=== PATIENT | male | born 1985 | race Caucasian/White ===

== ENCOUNTER 2021-04-16 11:44 | Outpatient (REF) | payer OTHER, SELFPAY ==
[2021-04-16 14:39] LABS: Alanine Aminotransferase 71 U/L (0-40); Albumin Level 4.5 g/dL (3.5-5.0); Alkaline Phosphatase 116 U/L (39-117); Anion Gap 16 (12-20); Aspartate Amino Transferase 33 U/L (5-37); Bilirubin Total 0.5 mg/dL (0.0-1.0); Blood Urea Nitrogen 10 mg/dL (9-16); Calcium 9.9 mg/dL (8.4-10.2); Carbon Dioxide 27 mmol/L (22-29); Chloride 100 mmol/L (96-108); Cholesterol 266 mg/dL; Estimated Glomerular Filt Rate > 60; Glucose Fasting 106 mg/dL (60-99); HDL Cholesterol 38 mg/dL; Potassium 3.9 mmol/L (3.3-5.1); Sodium 139 mmol/L (135-145); Total Protein 7.3 g/dL (6.5-8.0); Triglycerides 453 mg/dL
[2021-04-16 15:03] LABS: TSH reflex Free T4 1.26 uIU/mL (0.32-4.0)
== END 2021-04-16 11:45 | disposition home or self-care (01) ==
LOC: HO.HMGCLDS 11:44
PROVIDERS: PCP Nurse Practitioner Family; Visit Provider Nurse Practitioner Family
DX: I10 Essential (primary) hypertension (principal)
CPT/HCPCS: 36415; 80053; 80061; 84443

== ENCOUNTER 2021-05-14 09:11 | Outpatient (REF) | payer OTHER, SELFPAY ==
--- NOTE | ~2021-05-14 | US_ITS ---
EXAMINATION: US ABDOMEN COMPLETE CLINICAL INFORMATION: Abnormal levels of other serum enzymes. COMPARISON: None TECHNIQUE: Real-time imaging of the abdominal viscera. FINDINGS: PANCREAS: Not well visualized due to bowel gas ABDOMINAL AORTA: The proximal, mid, and distal segments are normal in caliber. INFERIOR VENA CAVA: Visualized portions are normal. LIVER: Liver echotexture is increased probably representing fatty infiltration. The liver is slightly enlarged, right lobe measuring 19 cm in length The liver contour is normal. There is a hypoechoic area adjacent to the gallbladder, characteristic location of focal fatty sparing. No other focal hepatic lesion. There is no intrahepatic biliary duct dilatation seen. GALLBLADDER: There is a small 2 mm echogenic density adjacent to the gallbladder wall probably representing a gallbladder wall polyp. No definite gallstone is seen. The gallbladder wall is normal in thickness. There is no pericholecystic fluid. COMMON BILE DUCT: Normal in caliber measuring 0.4 cm in diameter. RIGHT KIDNEY: Normal. No hydronephrosis. No renal calculi or focal parenchymal lesions. The kidney measures 11.7 cm in maximum dimension. LEFT KIDNEY: Normal. No hydronephrosis. No renal calculi or focal parenchymal lesions. The kidney measures 12.7 cm in maximum dimension. SPLEEN: Normal. The spleen measures 12.2 cm in maximum dimension. FREE FLUID: None. US/US abdomen complete IMPRESSION: Enlarged echogenic liver probably representing fatty infiltration. Small gallbladder wall polyp. No definite gallstone seen. Limited visualization of the pancreas.
== END 2021-05-14 09:12 | disposition home or self-care (01) ==
LOC: HO.HMGCX 09:11
PROVIDERS: PCP Nurse Practitioner Family; Visit Provider Nurse Practitioner Family
DX: R74.8 Abnormal levels of other serum enzymes (principal)
CPT/HCPCS: 76700

== ENCOUNTER 2021-11-24 15:51 | Emergency (ER) | payer OTHER, SELFPAY ==
[2021-11-24 16:13] VITALS: BP 187/117; PULSE 74; RESP 18; TEMP 36.8; O2SAT 97; BMI 26.4
--- NOTE | 2021-11-24 16:36 | ED_ITS ---
HPI - Anxiety General Chief Complaint: Anxiety Stated Complaint: anxiety Time Seen by Provider: 11/24/21 16:32 Source: patient Mode of arrival: ambulatory Limitations: no limitations History of Present Illness HPI narrative: Patient is a 36 year old male presenting to the emergency department today with anxiety. Patient states that he has a history of anxiety, and he is prescribed clonidine. Patient states that he got a refill at the end of September for 3 months but he has taken much more than he is supposed to over the last month. Patient states that he would like to be started on something else but he doesn't know how to do that. Patient denies any dizziness, lightheadedness, abdominal pain, nausea, vomiting, fever, chills, blurry vision, double vision, loss of vision, chest pain, difficulty breathing, shortness of breath, back pain, night sweats, pain with urination, increased urinary frequency, increased urinary urgency, blood in his urine or stool, syncope or a near syncopal episode, recent trauma or falls, bowel incontinence, bladder incontinence, bowel retention, bladder retention, or any other complaints at this time. Patient denies any suicidal ideation. MD complaint: anxiety Onset (ago): hour(s) Severity: moderate Quality: constant Place: home History of similar episodes: Yes Provoking factors: none known Relieving factors: nothing Exacerbating factors: nothing Associated symptoms: denies other symptoms Related Data Previous Rx's Medication Instructions Recorded gabapentin 300 mg capsule 300 mg PO TID #90 cap 08/25/21 clonidine HCl 0.3 mg tablet 0.6 mg PO TID #540 tab 10/27/21 lisinopril 20 mg tablet 20 mg PO DAILY 90 Days #90 tab 10/27/21 verapamil 120 mg 24 hr 120 mg PO DAILY 90 Days #90 cap 10/27/21 capsule,extended release Allergies Allergy/AdvReac Type Severity Reaction Status Date / Time Tree nuts Allergy Unknown Unknown Verified 09/11/21 16:53 Review of Systems Constitutional: Constitutional: Reports no additional constitutional complaints, Denies chills, Denies fever(s) and Denies night sweats Eyes: Eyes: Reports no additional eye complaints, Denies blurry vision, Denies change in vision, Denies diplopia, Denies eye discharge, Denies loss of vision and Denies eye pain ENT: Denies dizziness Cardiovascular: Cardiovascular: Reports no additional cardiovascular complaints, Denies chest pain, Denies lightheadedness, Denies Loss of Consciousness and Denies dyspnea Respiratory: Respiratory: Reports no additional respiratory complaints and Denies dyspnea Gastrointestinal: Gastrointestinal: Reports no additional gastrointestinal complaints, Denies abdominal pain, Denies melena, Denies hematochezia, Denies change in bowel habits and Denies change in stool character Genitourinary: Genitourinary: Reports no additional male genitourinary complaints, Denies hematuria, Denies oliguria, Denies difficulty urinating, Denies dysuria, Denies urinary frequency, Denies urinary hesitancy, Denies urinary incontinence and Denies urinary urgency Musculoskeletal: Musculoskeletal: Reports no additional musculoskeletal complaints, Denies numbness and Denies tingling Neurologic: Denies dizziness, Denies loss of vision, Denies numbness and Denies tingling Psychiatric: Psychiatric: Reports no additional psychiatric complaints and Reports anxiety Endocrine: Endocrine: Reports no additional endocrine complaints Hematologic/Lymphatic: Hematologic/Lymphatic: Reports no additional hematologic/lymphatic complaints Allergic/Immunologic: Allergic/Immunologic: Reports no additional allergic/immunologic complaints PMFSH Past Medical History Attestation statement: The following information was validated with the patient. Source: old records reviewed Medical History Anxiety Fear of flying Food poisoning Gastritis HTN (hypertension) Palpitation Surgical History Pyogenic granuloma Family History Family History Father Afib CHF (congestive heart failure) CVD (cardiovascular disease) Mother Stroke Mental health disorder Brother Asthma Maternal Grandfather Mental health disorder Maternal Uncle Mental health disorder Social History Social History Housing: House Patient Tobacco Use Status: Never used Tobacco e-Cigarette/Vaping Use: Currently Using (sometimes ) Second Hand Smoke Exposure: No Advance Directives: No Advance Directives Information Provided: No service: Yes Current occupational status: employed 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 [employer] Physical Exam Vital Signs: Vital Signs: Last Vital Signs Temp 98.2 F 11/24/21 16:13 Pulse 74 11/24/21 16:13 Resp 18 03/28/22 16:13 BP 187/117 H 03/28/22 16:13 Pulse Ox 97 11/24/21 16:13 BMI result Body Mass Index 26.4 Const: General: cooperative, no acute distress, alert and awake Nutritional Appearance: well nourished Orientation/consciousness: patient oriented x3 Limitations: no limitations HEENT: Head: Yes normal to inspection and Yes atraumatic Ears: hearing grossly normal bilaterally and external ears normal General nose exam: Normal external nose present, no nasal discharge noted and no epistaxis Face and sinus: Yes normal facial exam, No abrasion and No laceration Mouth: Normal oral and palatal mucosa present, no drooling and no muffled voice Eyes: General: appearance normal, both eyes and all related structures Periorbital: periorbital findings normal Eyelids: Yes eyelids normal Conjunctivae: conjunctivae normal Pupils: Equal, round and reactive pupils present EOM: EOMs intact bilaterally Neck: Neck: Yes normal visual inspection, Yes full ROM and Yes no lymphadenopathy Chest: Chest palpation & inspection: normal inspection of the chest Resp: Effort & Inspection: normal respiratory effort and able to speak in complete sentences Auscultation: clear to auscultation bilaterally Cardio: Rate: regular rate Rhythm: regular rhythm GI: Inspection: Yes normal to inspection Neuro: General: patient oriented x3 and moves all extremities Cranial nerves: Yes Equal, round and reactive pupils present Cognition (Neuro): normal cognition Motor exam (neuro): 5/5 motor strength present throughout Sensory Exam: Normal double simultaneous stimulation for sensation Coordination: [id number] test normal Extrem: General: Yes normal to inspection, Yes full ROM and Yes capillary refill normal Psych: Appearance: grossly normal Mental Status: mental status grossly normal Speech and movement: Pressured speech present Affect: Anxious affect present Attitude: cooperative Thought process: Flight of ideas present Thought content: Normal thought content present Insight: Good insight present (Psych) MDM - Anxiety MDM Narrative Medical decision making narrative: Patient is a 36 year old male presenting to the emergency department today with anxiety and clonidine abuse. Patient's physical exam showed an anxious individual but was otherwise unremarkable. Patient's blood work is pending. Patient's urine is pending. Patient is awaiting CARE team consult on plan for safe discharge. Patient was given 2 mg of PO Ativan which he stated helped his a nxiety significantly. Differential Diagnosis Differential diagnosis: Likely acute anxiety Medical Records Attestation: I reviewed the patient's medical records. Lab Data Attestation: I reviewed the patient's lab results. Labs: Lab Results 11/24/21 Range/Units 17:55 COVID-19 (REMA) Negative (Negative) COVID-19 Clin Com See Note Discharge Plan Discharge Clinical Impression: Anxiety Patient Disposition: Still a Patient Instructions: Anxiety (ED) Prescriptions: No Action gabapentin 300 mg capsule 300 mg PO TID Qty: 90 3RF clonidine HCl 0.3 mg tablet 0.6 mg PO TID Qty: 540 0RF lisinopril 20 mg tablet 20 mg PO DAILY 90 Days Qty: 90 0RF verapamil 120 mg capsule,ext rel. pellets 24 hr 120 mg PO DAILY 90 Days Qty: 90 0RF Print Language: Frisian
[2021-11-24] MEDS: LORazepam 1 MG TABLET 2 MG PO (17:09)
[2021-11-24 18:20] LABS: COVID-19 Test Negative (Negative); IDNOW Serial# 16C4AD1C
[2021-11-24 19:12] VITALS: BP 203/122; PULSE 77; RESP 20; O2SAT 97
[2021-11-24 19:13] VITALS: BP 176/121; PULSE 81; RESP 21
[2021-11-24 19:28] LABS: MANUAL DIFF FLAG NO
[2021-11-24 19:29] LABS: Basophils Percent Auto 0.5 % (0-2); Eosinophils Absolute Auto 0.2 X10*3/uL (0.0-0.4); Eosinophils Percent Auto 2.1 % (0-4); Hematocrit 38.2 % (42.0-52.0); Hemoglobin 12.6 g/dl (14.0-18.0); Imm Gran Abs Auto 0.03 X10*3/uL (0.00-0.03); Imm Gran Pct Auto 0.4 % (0.0-0.4); Lymphocytes Absolute Auto 1.7 X10*3/uL (1.2-4.9); Lymphocytes Percent Auto 21.7 % (20-40); Mean Corpuscular Hemoglobin 27.7 pg (27.0-33.0); Mean Platelet Volume 10.9 fL (9.4-12.4); Monocytes Absolute Auto 0.4 X10*3/uL (0.1-1.2); Monocytes Percent Auto 4.5 % (2-11); Neutrophils Absolute Auto 5.5 x10*3/uL (2.0-8.3); Neutrophils Percent Auto 70.8 % (45-73); Platelet Count 389 X10*3/uL (160-400); Red Blood Count 4.55 X10*6/uL (4.60-5.80); Red Cell Distribution Width 12.4 % (11.0-16.0); White Blood Count 7.8 X10*3/uL (4.8-10.8)
--- NOTE | 2021-11-24 19:33 | MHC.CARE ---
CARE team consult received from ED provider. Pt is a 36 year old single, white, Haitian speaking, cisgender male who self presented to the ED for increased anxiety and panic s/p to running out of his prescription clonidine. The pt had reported that he's been prescribed clonidine for anxiety since 2013 by his PCP, and the strength of his doses has gradually increased, currently prescribed 0.6mg TID. 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 [place] noting is that the pt does have a medical diagnosis of hypertension and is also prescribed lisinopril and verapamil. The pt is visibly anxious and distressed, wrapping his arms across his chest and holding his shoulders, rocking back and forth, on the verge of tears, and rapidly speaking about his fear that he's going to if he goes home because his blood pressure will go up to a million billion over a million. He denied SI/HI/AVH and did not demonstrate any acute signs or symptoms of psychosis. Pt has limited insight to his present situation, which is primarily due to the level of anxious distress he is experiencing and impacting his ability to think clearly and rationally. His impulse control and judgment are also impaired at this time. He had an office visit with his PCP on 09/11/2021 and he had been referred for individual therapy at [facility]. The pt reported that he received an email to initiate the intake process, however he didn't respond because he hadn't found therapy to be helpful for him in the past. He has no history of SI, self harm, suicide attempts, or psychiatric admissions. His tox screen is negative for all substances, and endorsed social alcohol use on weekends. He lives with his parents and works at a [employer]. Recommendation has been made for PHP. Pt was given information and reviewed it with him. The pt reported that he isn't happy about it being remote/virtual but is still agreeable with being referred for treatment. This medical underwriter will complete referral form. This medical underwriter also recommended that the pt reach back out to [facility] to connect with a therapist there. ED provider updated re: status of consultation. Pt expressed significant worry/concern that if he discharges home and continues to have panic attacks that he will become hypertensive and . Labs were drawn and ED provider will review medical findings with the pt.
[2021-11-24 19:40] LABS: Ethanol < 10 mg/dL
[2021-11-24 19:44] LABS: Alanine Aminotransferase 41 U/L (0-40); Albumin Level 4.6 g/dL (3.5-5.0); Alkaline Phosphatase 94 U/L (39-117); Anion Gap 15 (12-20); Aspartate Amino Transferase 24 U/L (5-37); Bilirubin Direct 0.2 mg/dL (0.0-0.5); Bilirubin Total 0.4 mg/dL (0.0-1.0); Blood Urea Nitrogen 14 mg/dL (9-16); Calcium 10.2 mg/dL (8.4-10.2); Carbon Dioxide 25 mmol/L (22-29); Chloride 102 mmol/L (96-108); Creatinine Clr Calc Pharmacy 131.8; Estimated Glomerular Filt Rate > 60; Glucose Random 122 mg/dL (60-115); Potassium 4.6 mmol/L (3.3-5.1); Sodium 137 mmol/L (135-145); Total Protein 7.6 g/dL (6.5-8.0)
[2021-11-24 19:58] LABS: Amphetamine Screen Urine Not Detected (Not Detect); Barbiturates, Urine Not Detected (Not Detect); Benzodiazepines Screen Urine Not Detected (Not Detect); Cannabinoid Screen Urine Not Detected (Not Detect); Cocaine Screen Urine Not Detected (Not Detect); Fentanyl, urine Not Detected (Not Detect); Opiate Screen Urine Not Detected (Not Detect); Phencyclidine Screen Urine Not Detected (Not Detect)
[2021-11-24] MEDS: Gabapentin 300 MG CAPSULE PO (20:29)
[2021-11-24] MEDS: VerapamiL HCL SR 120 MG TABLET.ER PO (20:29)
[2021-11-24] MEDS: lisinopriL 20 MG TABLET PO ×2 (20:29→22:36)
[2021-11-24 21:34] VITALS: BP 173/117; PULSE 82; RESP 20; O2SAT 97
[2021-11-24] MEDS: cloNIDine HCL 0.1 MG TABLET 0.6 MG PO (22:36)
[2021-11-25 01:01] VITALS: BP 157/106; PULSE 74; RESP 19; TEMP 36.8; O2SAT 96
[2021-11-25] MEDS: LORazepam 1 MG TABLET 2 MG PO ×3 (02:49→17:58)
--- NOTE | 2021-11-25 05:58 | PC.NURSE ---
Patient had been sleeping since 030, had a difficulty falling sleep, Ativan 2 mg PO administered at 0249 for anxiety with + effect, Lisinopril 20 mg and clonidine 0.6 mg administered in addition to night time medication @ 2235 with + effect, patient was assessed by care team, no clear disposition decided yet, psych consult ordered/M5 aware, for medication review, behavior appropriate, medication compliant, will continue to monitor.
--- NOTE | 2021-11-25 07:25 | PC.NURSE ---
patient appears to remain asleep at present respirations are even and unlabored patient appears in no distress
[2021-11-25] MEDS: lisinopriL 20 MG TABLET PO ×2 (09:17→09:33)
[2021-11-25 09:20] VITALS: BP 149/110; PULSE 88; RESP 20; TEMP 37.2; O2SAT 97
[2021-11-25] MEDS: Ondansetron ODT 4 MG TAB.RAPDIS TRANSLINGU ×2 (09:25→17:16)
[2021-11-25] MEDS: Gabapentin 300 MG CAPSULE PO ×2 (09:33→14:22)
[2021-11-25] MEDS: VerapamiL HCL SR 120 MG TABLET.ER PO (11:02)
[2021-11-25 17:19] VITALS: BP 142/108; PULSE 93; RESP 19; TEMP 36.6; O2SAT 97
--- NOTE | 2021-11-26 09:04 | P.CNPS_ITS ---
History of Present Illness Date of Service: 11/25/21 Chief Complaint: anxiety Reason for Consult: med recs HPI Narrative: per ED note: Patient is a 36 year old male presenting to the emergency department today with anxiety. Patient states that he has a history of anxiety, and he is prescribed clonidine. Patient states that he got a refill at the end of September for 3 months but he has taken much more than he is supposed to over the last month. Patient states that he would like to be started on something else but he doesn't know how to do that. Patient denies any dizziness, lightheadedness, abdominal pain, nausea, vomiting, fever, chills, blurry vision, double vision, loss of vision, chest pain, difficulty breathing, shortness of breath, back pain, night sweats, pain with urination, increased urinary frequency, increased urinary urgency, blood in his urine or stool, syncope or a near syncopal episode, recent trauma or falls, bowel incontinence, bladder incontinence, bowel retention, bladder retention, or any other complaints at this time. Patient denies any suicidal ideation. on interview with this functional tester typewriters, pt was clearly anxious, with strained mien and hyper-verbosity. he was not very positive about taking medication and was very focused on his concern re rebound hypertension from having recently stopped clon idine 0.6 mg TID. he was referred to speak with ED medical provider on that score and to focus on mgmt of anxiety with this functional tester typewriters. he reported a very strong FH of severe anxiety disorder and multiple relative who take lorazepam with good results. he states he is a binge drinker, taking about 10 beers once weekly. he was reluctant to use lorazepam for anything more than the short term, but he agreed to plan to use it at 1 mg PO QID PRN anxiety until he is able to start the PHP and get on medication more appropriate for chronic anxiety. he stated he would plan to have his mother, with whom he lives, hold the medication for him and dispense it appropriately. he denied any safety concerns. Past Psychiatric History: severe anxiety controlled since 2013 with clonidine Rx'ed by his PCP. brief trial of psychotherapy, which he found unhelpful. no SA, SIB, h/o hosps, Tx other than as described above. [facility] Medical History Anxiety Fear of flying Food poisoning Gastritis HTN (hypertension) Palpitation Surgical History Pyogenic granuloma Family History: extensive FH of anxiety. Social History: works in a [employer], lives with his parents. Substance History: alcohol - once weekly about 10 beers per occasion Diagnostics Vital Signs (24Hr): Vital Signs - 24 hr 11/25/21 09:20 11/25/21 17:19 Temperature 99 F 98 F Pulse Rate 88 93 Respiratory Rate 20 19 Blood Pressure 149/110 H 142/108 H Pulse Oximetry 97 97 BMI result Body Mass Index 26.4 Labs Results: 11/24/21 19:21 11/24/21 19:21 Labs: Laboratory Results - last 48 hr 11/24/21 11/24/21 11/24/21 17:55 19:21 19:21 WBC 7.8 RBC 4.55 L Hgb 12.6 L Hct 38.2 L MCV 84.0 MCH 27.7 MCHC 33.0 RDW 12.4 Plt Count 389 MPV 10.9 Immature Gran % (Auto) 0.4 Neut % (Auto) 70.8 Lymph % (Auto) 21.7 Mcintosh % (Auto) 4.5 Eos % (Auto) 2.1 Baso % (Auto) 0.5 Lymph # (Auto) 1.7 Mcintosh # (Auto) 0.4 Eos # (Auto) 0.2 Baso # (Auto) 0.0 Abs Immat Gran (auto) 0.03 Absolute Neuts (auto) 5.5 Absolute Nucleated RBC 0.000 Nucleated RBC % (auto) 0.0 Sodium 137 Potassium 4.6 Chloride 102 Carbon Dioxide 25 Anion Gap 15 BUN 14 Creatinine 0.85 Estim Creat Clear Calc 131.8 Estimated GFR > 60 Random Glucose 122 H Calcium 10.2 Magnesium 2.0 Total Bilirubin 0.4 Direct Bilirubin 0.2 AST 24 ALT 41 H Alkaline Phosphatase 94 Total Protein 7.6 Albumin 4.6 Urine Opiates Screen Urine Fentanyl Screen Ur Barbiturates Screen Ur Phencyclidine Scrn Ur Amphetamines Screen U Benzodiazepines Scrn Urine Cocaine Screen U Marijuana (THC) Screen Ethyl Alcohol COVID-19 (REMA) Negative COVID-19 Clin Com See Note 11/24/21 11/24/21 19:21 19:37 WBC RBC Hgb Hct MCV MCH MCHC RDW Plt Count MPV Immature Gran % (Auto) Neut % (Auto) Lymph % (Auto) Mcintosh % (Auto) Eos % (Auto) Baso % (Auto) Lymph # (Auto) Mcintosh # (Auto) Eos # (Auto) Baso # (Auto) Abs Immat Gran (auto) Absolute Neuts (auto) Absolute Nucleated RBC Nucleated RBC % (auto) Sodium Potassium Chloride Carbon Dioxide Anion Gap BUN Creatinine Estim Creat Clear Calc Estimated GFR Random Glucose Calcium Magnesium Total Bilirubin Direct Bilirubin AST ALT Alkaline Phosphatase Total Protein Albumin Urine Opiates Screen Not Detected Urine Fentanyl Screen Not Detected Ur Barbiturates Screen Not Detected Ur Phencyclidine Scrn Not Detected Ur Amphetamines Screen Not Detected U Benzodiazepines Scrn Not Detected Urine Cocaine Screen Not Detected U Marijuana (THC) Screen Not Detected Ethyl Alcohol < 10 COVID-19 (REMA) COVID-19 Clin Com Mental Status Exam Mental Status Exam Narrative: appropriately dressed and groomed. cooperative. increase rate and amount of speech. thoughts linear and logical. affect constricted, non-labile. mood anxious, denies any SI/HI/AVH. Medications Allergies Allergies Allergy/AdvReac Type Severity Reaction Status Date / Time Tree nuts Allergy Unknown Unknown Verified 09/11/21 16:53 Assessment & Plan Assessment & Plan (1) Anxiety disorder: Status: Acute Code(s): F41.9 - Anxiety disorder, unspecified Plan ativan 1 mg PO QID PRN x 1 week. start at PHP within one week. mother to hold and dispense medications. I spent ___60___ minutes with the patient and/or on the patient floor today, greater than?50% of which was spent counseling/coordinating care.
== END 2021-11-25 19:54 | disposition home or self-care (01) ==
PROVIDERS: Physician Assistant; Emergency Provider Emergency Medicine; PCP Nurse Practitioner Family
DX: F41.9 Anxiety disorder, unspecified (principal); Z20.822 Contact with and (suspected) exposure to COVID-19; I10 Essential (primary) hypertension; E78.5 Hyperlipidemia, unspecified; Z79.899 Other long term (current) drug therapy
CPT/HCPCS: 36415; 80048; 80076; 80307; 82077; 83735; 85025; 87635; 99284; 99285

== ENCOUNTER 2022-02-05 03:37 | Inpatient (IN) | payer OTHER, SELFPAY ==
[2022-02-05] VITALS (19 sets, daily range): BP systolic 121–212; BP diastolic 70–113; PULSE 89–121; RESP 13–26; TEMP 37.1–37.3; O2SAT 95–99; BMI 26.9; BMI 25.7
--- NOTE | 2022-02-05 | ECG_ITS ---
Test Reason : chest pain Blood Pressure : / mmHG Vent. Rate : 111 BPM Atrial Rate : 111 BPM P-R Int : 152 ms QRS Dur : 094 ms QT Int : 352 ms P-R-T Axes : 063 076 018 degrees QTc Int : 478 ms Sinus tachycardia Minimal voltage criteria for LVH, may be normal variant ( Sokolow-Dailey ) Nonspecific ST abnormality Abnormal ECG No previous ECGs available Referred By: Ashia Holguin Electronically Signed By:EMERY JEFFREY
--- NOTE | ~2022-02-05 | CT_ITS ---
EXAMINATION: CT ABDOMEN AND PELVIS WITHOUT CONTRAST CLINICAL INFORMATION: Vomiting with elevated lactic acid, alcohol abuse. COMPARISON: Ultrasound abdomen 05/14/2021. TECHNIQUE: Multidetector volumetric imaging was performed from the superior aspect of the liver through the pubic symphysis. Sagittal and coronal reformatted images were obtained on the technologist's workstation. This CT examination was performed using dose optimization techniques as appropriate, variously including the following: *Automated exposure control *Adjustment of mA and/or kV according to patient size (this includes techniques or standardized protocols for targeted exams where dose is matched to indication/reason for exam; i.e. extremities or head) *Use of iterative reconstruction technique DLP: 645 mGy-cm FINDINGS: LUNG BASES: The visualized lung bases are unremarkable. LIVER, GALLBLADDER, AND BILIARY TREE: The liver is enlarged at 18.7 cm in greatest length with markedly decreased attenuation, hepatic steatosis. No focal hepatic lesion or biliary ductal dilatation is present. The gallbladder is unremarkable with no evidence of radiopaque gallstones, gallbladder wall thickening, or obvious pericholecystic inflammatory changes. PANCREAS: Unremarkable. No evidence of pancreatitis. SPLEEN: Unremarkable. ADRENAL GLANDS: Unremarkable. KIDNEYS AND URETERS: The kidneys are normal in size, shape, and attenuation. No hydronephrosis, hydroureter, or calculi seen. No perinephric stranding. BLADDER: Quite distended but unremarkable. GASTROINTESTINAL TRACT: A small hiatal hernia is present. The small and large bowel are unremarkable. The appendix is unremarkable. ABDOMINAL WALL: No significant hernia is appreciated. LYMPH NODES: No retroperitoneal lymphadenopathy. VASCULAR: Unremarkable. There is an accessory left retroaortic renal vein. PELVIC VISCERA: Unremarkable. OSSEOUS STRUCTURES: Unremarkable. CT/CT abdomen pelvis wo con IMPRESSION: Enlarged fatty liver. No other significant abnormality is seen. Fleischner guidelines were followed.
[2022-02-05] MEDS: chlordiazePOXIDE HCl 25 MG CAPSULE 50 MG PO (04:20)
[2022-02-05 04:39] LABS: COVID-19 Test Negative (Negative); IDNOW Serial# 16C4AD1C
[2022-02-05 04:42] LABS: MANUAL DIFF FLAG NO
[2022-02-05 04:43] LABS: Basophils Absolute Auto 0.1 X10*3/uL (0.0-0.2); Basophils Percent Auto 0.8 % (0-2); Hematocrit 43.4 % (42.0-52.0); Hemoglobin 14.2 g/dl (14.0-18.0); Imm Gran Abs Auto 0.07 X10*3/uL (0.00-0.03); Imm Gran Pct Auto 0.6 % (0.0-0.4); Lymphocytes Absolute Auto 1.7 X10*3/uL (1.2-4.9); Lymphocytes Percent Auto 13.5 % (20-40); Mean Corpuscular HGB Conc 32.7 g/dl (31.0-36.0); Mean Corpuscular Hemoglobin 26.8 pg (27.0-33.0); Mean Platelet Volume 9.9 fL (9.4-12.4); Monocytes Absolute Auto 0.5 X10*3/uL (0.1-1.2); Neutrophils Percent Auto 81.1 % (45-73); Platelet Count 461 X10*3/uL (160-400); Red Blood Count 5.29 X10*6/uL (4.60-5.80); Red Cell Distribution Width 14.4 % (11.0-16.0); White Blood Count 12.3 X10*3/uL (4.8-10.8)
[2022-02-05 04:59] LABS: Ethanol 433 mg/dL
[2022-02-05 05:03] LABS: Anion Gap 28 (12-20); Blood Urea Nitrogen 11 mg/dL (9-16); Calcium 9.3 mg/dL (8.4-10.2); Carbon Dioxide 13 mmol/L (22-29); Chloride 105 mmol/L (96-108); Creatinine Clr Calc Pharmacy 129.8; Estimated Glomerular Filt Rate > 60; Glucose Random 81 mg/dL (60-115); Potassium 4.1 mmol/L (3.3-5.1); Sodium 142 mmol/L (135-145)
--- NOTE | 2022-02-05 05:44 | PC.NURSE ---
Patient is restless, tangential, intoxicated, BAL 433 at 0438, [facility] referral completed/confirmed/ETA after 1730, med rec completed/pending provider's approval, Librium 50 mg PO administered at 0530 for comfort, patient father reported left eye vision impairment due to trauma, patient reporting consistently that he can not see, patient is close observation for fall risk, will continue to monitor.
--- NOTE | 2022-02-05 08:18 | ED_ITS ---
HPI - Alcohol General Chief Complaint: Psychiatric Symptoms Stated Complaint: erratic behavior Time Seen by Provider: 02/05/22 08:00 Source: patient and EMS Mode of arrival: EMS Limitations: no limitations History of Present Illness HPI narrative: 36 y/o male with history of HTN, anxiety, HLD who presents to the ER via EMS on a section [employer] [place] [employer] for intoxication and erratic behavior. 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 He is not a daily drinker but has been binging lately due to increased anxiety. He says the stress from life put him over the edge. He denies any suicidal thoughts but has been depressed lately. He denies any other drug or substance use. He takes clonidine for anxiety which works only sometimes. MD complaint: alcohol intoxication Last drink: Just prior to admission Chronic alcohol use: Yes Previous visits for alcohol intoxication: No Recent trauma: No Associated symptoms: nausea Treatments prior to arrival: none Related Data Home Medications Medication Instructions Recorded Confirmed clonidine HCl 0.3 mg tablet 0.3 mg PO TID 02/05/22 02/05/22 gabapentin 300 mg capsule 1 cap PO TID 02/05/22 02/05/22 lorazepam 0.5 mg tablet 1 tab PO BID PRN anxiety 02/05/22 02/05/22 Previous Rx's Medication Instructions Recorded verapamil 180 mg 24 hr 180 mg PO DAILY 90 days #90 caps 12/18/21 capsule,extended release lisinopril 20 mg tablet 20 mg PO DAILY 90 days #90 tabs 01/27/22 Allergies Allergy/AdvReac Type Severity Reaction Status Date / Time Tree nuts Allergy Unknown Unknown Verified 12/18/21 08:58 Review of Systems Review of Systems: Constitutional: No Fever, No Chills ENT/Mouth: No sore throat, No Rhinorrhea, No Swallowing Difficulty Eyes: No Eye Pain, No Swelling, No Redness Cardiovascular: No Chest Pain, No SOB, No Orthopnea, No Edema Respiratory: No Cough, No Sputum, No Wheezing, No dyspnea Gastrointestinal: + Nausea, + Vomiting, No Diarrhea, No abdominal Pain, No Hematochezia, No Melena Genitourinary: No Dysuria, No Urinary Frequency, No Hematuria Musculoskeletal: No joint pain, No Myalgias Skin: No Skin Lesions, No rash Neuro: No Weakness, No Numbness, No Dizziness, + Headache Psych: + Anxiety/Panic, + Depression Heme/Lymph: No Bruising, No Lymphadenopathy Endocrine: No Polyuria, No Polydipsia [facility] Past Medical History Medical History Anxiety Fear of flying Food poisoning Gastritis HTN (hypertension) Palpitation Surgical History Pyogenic granuloma Family History Family History Father Afib CHF (congestive heart failure) CVD (cardiovascular disease) Mother Stroke Mental health disorder Brother Asthma Maternal Grandfather Mental health disorder Maternal Uncle Mental health disorder Social History Social History Housing: House Alcohol intake: current Alcohol intake frequency: a few times a week Patient Tobacco Use Status: Never used Tobacco e-Cigarette/Vaping Use: Currently Using (sometimes ) Second Hand Smoke Exposure: No Use of substances other than those prescribed or required for medical reasons: No Advance Directives: No Advance Directives Information Provided: Yes service: Yes Current occupational status: employed 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 [employer] Cognitive needs: No Hearing needs: No Vision needs: No Physical Exam ED Vital Signs: Vital Signs - 24 hr 02/05/22 03:42 02/05/22 03:58 02/05/22 05:08 Temperature 99.0 F 99 F Pulse Rate 120 H 120 H Respiratory Rate 20 20 Blood Pressure 161/87 H 161/80 H 161/80 H Pulse Oximetry 95 95 Oxygen Delivery Method Room Air Room Air 02/05/22 06:29 02/05/22 08:02 02/05/22 09:21 Temperature Pulse Rate 114 H 115 H 121 H Respiratory Rate 20 22 H Blood Pressure 166/82 H 187/107 H 197/110 H Pulse Oximetry 97 98 Oxygen Delivery Method Room Air Room Air 02/05/22 09:40 02/05/22 10:23 02/05/22 10:49 Temperature Pulse Rate 121 H 103 H 102 H Respiratory Rate 20 20 20 Blood Pressure 207/98 H 121/70 126/78 Pulse Oximetry 98 98 Oxygen Delivery Method Room Air Room Air 02/05/22 12:00 02/05/22 13:28 Temperature Pulse Rate 107 H 113 H Respiratory Rate 24 H 20 Blood Pressure 164/88 H 169/94 H Pulse Oximetry 97 Oxygen Delivery Method Room Air BMI result Body Mass Index 26.9 Appearance: Alert. Oriented X3. No acute distress. Eyes: Pupils equal, round and reactive to light. ENT: Pharynx normal. Neck: Normal inspection. Neck supple. CVS: Tachycardic, 110, regular rhythm. Pulses normal. Respiratory: No respiratory distress. Breath sounds normal. Abdomen: Soft and nontender. +BS x4 Skin: Skin warm and dry. Normal skin color. Normal skin turgor. No rashes. Extremities: No lower extremity edema. Neuro: Oriented X 3. No motor deficit. No sensory deficit. CN II-XII intact. Psych: hyperverbal, anxious, restless, normal speech, poor insight and judgment Course Course Course Narrative: 36 y/o male with history of anxiety, HTN, HLD comping in to the ER intoxicated with erratic behavior. ETOH level on arrival 433. He is anxious and restless. Evaluated after being here for 4 hours - basic labs done reveal an anion gap of 28 and bicarb of 13. He denies ingestion of any other substances other than gin. He is not suicidal and was not trying to harm himself. Will plan to repeat labs and check lactic acid. Reevaluation(s) Reevaluation #1: Lactic acid 10.2. Acidosis is worsening. Will need to come out of the Pod for IVF and will plan for admission. Blood cultures ordered, no evidence of infection at this time. No reports of a seizure. Reevaluation #2: CPK 595. No known seizure activity. No known seizure history. Patient was reportedly combative and this could lead to his mild rhabdomyolysis. At this time he remains hypertensive, systolic to 200, heart rate 120. He is nauseous. He started vomiting coffee ground liquid material. Will treat with Zofran and IV labetalol for HTN urgency. Will also give IV PPI for possible UGIB related to ETOH. Spoke with Dr. Church re: admission , will await repeat lactic acid to ensure it is trending down. Reevaluation #3: Repeat lactic acid increased from 10.2-10.4. He was given 2 L of fluid with no improvement in his lactic acidosis. Additional IV fluids ordered in addition to bicarb drip. He has been vomiting, denies any specific abdominal pain but reports feeling ?terrible.? He has no fever, very mild leukocytosis of 12.3. No source of infection identified at this time. Will get CT scan of his abdomen for further evaluation and check a lipase. Additional Reevaluation(s): Lipase normal. Lactic acid trended down to 6.3. CT scan reviewed, no obvious abnormality. Will plan for admission. Continue IVF with ongoing GI losses. [facility] - Alcohol Medical Records Attestation: I reviewed the patient's medical records. Lab Data Attestation: I reviewed the patient's lab results. Result diagrams: 02/05/22 04:38 02/05/22 12:34 Labs: Lab Results 02/05/22 02/05/22 02/05/22 Range/Units 04:03 04:38 04:38 WBC 12.3 H (4.8-10.8) X10*3/uL RBC 5.29 (4.60-5.80) X10*6/uL Hgb 14.2 (14.0-18.0) g/dl Hct 43.4 (42.0-52.0) % MCV 82.0 (80.0-98.0) fL MCH 26.8 L (27.0-33.0) pg MCHC 32.7 (31.0-36.0) g/dl RDW 14.4 (11.0-16.0) % Plt Count 461 H (160-400) X10*3/uL MPV 9.9 (9.4-12.4) fL Immature Gran % (Auto) 0.6 H (0.0-0.4) % Neut % (Auto) 81.1 H (45-73) % Lymph % (Auto) 13.5 L (20-40) % [place] % (Auto) 4.0 (2-11) % Eos % (Auto) 0.0 (0-4) % Baso % (Auto) 0.8 (0-2) % Lymph # (Auto) 1.7 (1.2-4.9) X10*3/uL [place] # (Auto) 0.5 (0.1-1.2) X10*3/uL Eos # (Auto) 0.0 (0.0-0.4) X10*3/uL Baso # (Auto) 0.1 (0.0-0.2) X10*3/uL Abs Immat Gran (auto) 0.07 H (0.00-0.03) X10*3/uL Absolute Neuts (auto) 10.0 H (2.0-8.3) x10*3/uL Absolute Nucleated RBC 0.000 (0.0-0.012) X10*3/uL Nucleated RBC % (auto) 0.0 (0.0-0.2) /100WBC VBG pH (7.32-7.43) VBG pCO2 mmHg VBG pO2 mmHg VBG HCO3 (22-26) mmol/L VBG O2 Saturation % VBG Base Excess mmol/L Sodium (135-145) mmol/L Potassium (3.3-5.1) mmol/L Chloride (96-108) mmol/L Carbon Dioxide (22-29) mmol/L Anion Gap (12-20) BUN (9-16) mg/dL Creatinine (0.5-1.4) mg/dL Estim Creat Clear Calc Estimated GFR Random Glucose (60-115) mg/dL Lactic Acid (0.5-2.0) mmol/L Lactic Acid F/U @ 2Hr (0.5-2.0) mmol/L Lactic Acid F/U @ 4Hr (0.5-2.0) mmol/L Calcium (8.4-10.2) mg/dL Total Creatine Kinase (38-174) U/L Lipase (8-78) U/L Urine Color Urine Appearance Urine pH (5.0-8.0) Ur Specific [place] (1.005-1.025) Urine Protein (NEG-TRACE) MG/DL Urine Glucose (UA) (NEG) MG/DL Urine Ketones (NEG) MG/DL Urine Blood (NEG) Urine Nitrite (NEG) Ur Leukocyte Esterase (NEG) Urine RBC (0) /HPF Urine WBC (0-4) /HPF Ur Squamous Epith Cells /LPF Urine Bacteria /LPF Hyaline Casts /LPF Granular Casts /LPF Urine Opiates Screen (Not Detect) Urine Fentanyl Screen (Not Detect) Ur Barbiturates Screen (Not Detect) Ur Phencyclidine Scrn (Not Detect) Ur Amphetamines Screen (Not Detect) U Benzodiazepines Scrn (Not Detect) Urine Cocaine Screen (Not Detect) U Marijuana (THC) Screen (Not Detect) Ethyl Alcohol 433 H* mg/dL COVID-19 (REMA) Negative (Negative) COVID-19 Clin Com See Note 02/05/22 02/05/22 02/05/22 Range/Units 04:38 08:22 08:23 WBC (4.8-10.8) X10*3/uL RBC (4.60-5.80) X10*6/uL Hgb (14.0-18.0) g/dl Hct (42.0-52.0) % MCV (80.0-98.0) fL MCH (27.0-33.0) pg MCHC (31.0-36.0) g/dl RDW (11.0-16.0) % Plt Count (160-400) X10*3/uL MPV (9.4-12.4) fL Immature Gran % (Auto) (0.0-0.4) % Neut % (Auto) (45-73) % Lymph % (Auto) (20-40) % [place] % (Auto) (2-11) % Eos % (Auto) (0-4) % Baso % (Auto) (0-2) % Lymph # (Auto) (1.2-4.9) X10*3/uL [place] # (Auto) (0.1-1.2) X10*3/uL Eos # (Auto) (0.0-0.4) X10*3/uL Baso # (Auto) (0.0-0.2) X10*3/uL Abs Immat Gran (auto) (0.00-0.03) X10*3/uL Absolute Neuts (auto) (2.0-8.3) x10*3/uL Absolute Nucleated RBC (0.0-0.012) X10*3/uL Nucleated RBC % (auto) (0.0-0.2) /100WBC VBG pH (7.32-7.43) VBG pCO2 mmHg VBG pO2 mmHg VBG HCO3 (22-26) mmol/L VBG O2 Saturation % VBG Base Excess mmol/L Sodium 142 139 (135-145) mmol/L Potassium 4.1 4.0 (3.3-5.1) mmol/L Chloride 105 103 (96-108) mmol/L Carbon Dioxide 13 L 11 L (22-29) mmol/L Anion Gap 28 H 29 H (12-20) BUN 11 12 (9-16) mg/dL Creatinine 0.94 0.95 (0.5-1.4) mg/dL Estim Creat Clear Calc 129.8 128.4 Estimated GFR > 60 > 60 Random Glucose 81 78 (60-115) mg/dL Lactic Acid 10.2 H* (0.5-2.0) mmol/L Lactic Acid F/U @ 2Hr (0.5-2.0) mmol/L Lactic Acid F/U @ 4Hr (0.5-2.0) mmol/L Calcium 9.3 D 9.2 (8.4-10.2) mg/dL Total Creatine Kinase 595 H (38-174) U/L Lipase 28 (8-78) U/L Urine Color Urine Appearance Urine pH (5.0-8.0) Ur Specific [place] (1.005-1.025) Urine Protein (NEG-TRACE) MG/DL Urine Glucose (UA) (NEG) MG/DL Urine Ketones (NEG) MG/DL Urine Blood (NEG) Urine Nitrite (NEG) Ur Leukocyte Esterase (NEG) Urine RBC (0) /HPF Urine WBC (0-4) /HPF Ur Squamous Epith Cells /LPF Urine Bacteria /LPF Hyaline Casts /LPF Granular Casts /LPF Urine Opiates Screen (Not Detect) Urine Fentanyl Screen (Not Detect) Ur Barbiturates Screen (Not Detect) Ur Phencyclidine Scrn (Not Detect) Ur Amphetamines Screen (Not Detect) U Benzodiazepines Scrn (Not Detect) Urine Cocaine Screen (Not Detect) U Marijuana (THC) Screen (Not Detect) Ethyl Alcohol mg/dL COVID-19 (REMA) (Negative) COVID-19 Clin Com 02/05/22 02/05/22 02/05/22 Range/Units 08:23 08:23 10:53 WBC (4.8-10.8) X10*3/uL RBC (4.60-5.80) X10*6/uL Hgb (14.0-18.0) g/dl Hct (42.0-52.0) % MCV (80.0-98.0) fL MCH (27.0-33.0) pg MCHC (31.0-36.0) g/dl RDW (11.0-16.0) % Plt Count (160-400) X10*3/uL MPV (9.4-12.4) fL Immature Gran % (Auto) (0.0-0.4) % Neut % (Auto) (45-73) % Lymph % (Auto) (20-40) % [place] % (Auto) (2-11) % Eos % (Auto) (0-4) % Baso % (Auto) (0-2) % Lymph # (Auto) (1.2-4.9) X10*3/uL [place] # (Auto) (0.1-1.2) X10*3/uL Eos # (Auto) (0.0-0.4) X10*3/uL Baso # (Auto) (0.0-0.2) X10*3/uL Abs Immat Gran (auto) (0.00-0.03) X10*3/uL Absolute Neuts (auto) (2.0-8.3) x10*3/uL Absolute Nucleated RBC (0.0-0.012) X10*3/uL Nucleated RBC % (auto) (0.0-0.2) /100WBC VBG pH 7.22 L (7.32-7.43) VBG pCO2 25 mmHg VBG pO2 90 mmHg VBG HCO3 11 L (22-26) mmol/L VBG O2 Saturation 93.0 % VBG Base Excess -14.6 mmol/L Sodium (135-145) mmol/L Potassium (3.3-5.1) mmol/L Chloride (96-108) mmol/L Carbon Dioxide (22-29) mmol/L Anion Gap (12-20) BUN (9-16) mg/dL Creatinine (0.5-1.4) mg/dL Estim Creat Clear Calc Estimated GFR Random Glucose (60-115) mg/dL Lactic Acid (0.5-2.0) mmol/L Lactic Acid F/U @ 2Hr 10.4 H* (0.5-2.0) mmol/L Lactic Acid F/U @ 4Hr (0.5-2.0) mmol/L Calcium (8.4-10.2) mg/dL Total Creatine Kinase (38-174) U/L Lipase (8-78) U/L Urine Color Urine Appearance Urine pH (5.0-8.0) Ur Specific [place] (1.005-1.025) Urine Protein (NEG-TRACE) MG/DL Urine Glucose (UA) (NEG) MG/DL Urine Ketones (NEG) MG/DL Urine Blood (NEG) Urine Nitrite (NEG) Ur Leukocyte Esterase (NEG) Urine RBC (0) /HPF Urine WBC (0-4) /HPF Ur Squamous Epith Cells /LPF Urine Bacteria /LPF Hyaline Casts /LPF Granular Casts /LPF Urine Opiates Screen (Not Detect) Urine Fentanyl Screen (Not Detect) Ur Barbiturates Screen (Not Detect) Ur Phencyclidine Scrn (Not Detect) Ur Amphetamines Screen (Not Detect) U Benzodiazepines Scrn (Not Detect) Urine Cocaine Screen (Not Detect) U Marijuana (THC) Screen (Not Detect) Ethyl Alcohol 302 H* mg/dL COVID-19 (REMA) (Negative) COVID-19 Clin Com 02/05/22 02/05/22 02/05/22 Range/Units 11:15 12:01 12:34 WBC (4.8-10.8) X10*3/uL RBC (4.60-5.80) X10*6/uL Hgb (14.0-18.0) g/dl Hct (42.0-52.0) % MCV (80.0-98.0) fL MCH (27.0-33.0) pg MCHC (31.0-36.0) g/dl RDW (11.0-16.0) % Plt Count (160-400) X10*3/uL MPV (9.4-12.4) fL Immature Gran % (Auto) (0.0-0.4) % Neut % (Auto) (45-73) % Lymph % (Auto) (20-40) % [place] % (Auto) (2-11) % Eos % (Auto) (0-4) % Baso % (Auto) (0-2) % Lymph # (Auto) (1.2-4.9) X10*3/uL [place] # (Auto) (0.1-1.2) X10*3/uL Eos # (Auto) (0.0-0.4) X10*3/uL Baso # (Auto) (0.0-0.2) X10*3/uL Abs Immat Gran (auto) (0.00-0.03) X10*3/uL Absolute Neuts (auto) (2.0-8.3) x10*3/uL Absolute Nucleated RBC (0.0-0.012) X10*3/uL Nucleated RBC % (auto) (0.0-0.2) /100WBC VBG pH (7.32-7.43) VBG pCO2 mmHg VBG pO2 mmHg VBG HCO3 (22-26) mmol/L VBG O2 Saturation % VBG Base Excess mmol/L Sodium 138 (135-145) mmol/L Potassium 4.4 (3.3-5.1) mmol/L Chloride 106 (96-108) mmol/L Carbon Dioxide 11 L (22-29) mmol/L Anion Gap 25 H (12-20) BUN 10 (9-16) mg/dL Creatinine 0.82 (0.5-1.4) mg/dL Estim Creat Clear Calc 148.8 Estimated GFR > 60 Random Glucose 75 (60-115) mg/dL Lactic Acid (0.5-2.0) mmol/L Lactic Acid F/U @ 2Hr (0.5-2.0) mmol/L Lactic Acid F/U @ 4Hr (0.5-2.0) mmol/L Calcium 8.1 L D (8.4-10.2) mg/dL Total Creatine Kinase (38-174) U/L Lipase (8-78) U/L Urine Color YELLOW Urine Appearance CLEAR Urine pH 6.0 (5.0-8.0) Ur Specific [place] >= 1.030 H (1.005-1.025) Urine Protein 1+ H (NEG-TRACE) MG/DL Urine Glucose (UA) NEG (NEG) MG/DL Urine Ketones 40 (NEG) MG/DL Urine Blood 2+ H (NEG) Urine Nitrite NEG (NEG) Ur Leukocyte Esterase NEG (NEG) Urine RBC 1-4 (0) /HPF Urine WBC 0 (0-4) /HPF Ur Squamous Epith Cells TRACE /LPF Urine Bacteria NONE /LPF Hyaline Casts 1-4 /LPF Granular Casts 0-2 /LPF Urine Opiates Screen Not Detected (Not Detect) Urine Fentanyl Screen Not Detected (Not Detect) Ur Barbiturates Screen Not Detected (Not Detect) Ur Phencyclidine Scrn Not Detected (Not Detect) Ur Amphetamines Screen Not Detected (Not Detect) U Benzodiazepines Scrn Not Detected (Not Detect) Urine Cocaine Screen Not Detected (Not Detect) U Marijuana (THC) Screen Not Detected (Not Detect) Ethyl Alcohol mg/dL COVID-19 (REMA) (Negative) COVID-19 Clin Com 02/05/22 02/05/22 Range/Units 12:34 13:39 WBC (4.8-10.8) X10*3/uL RBC (4.60-5.80) X10*6/uL Hgb (14.0-18.0) g/dl Hct (42.0-52.0) % MCV (80.0-98.0) fL MCH (27.0-33.0) pg MCHC (31.0-36.0) g/dl RDW (11.0-16.0) % Plt Count (160-400) X10*3/uL MPV (9.4-12.4) fL Immature Gran % (Auto) (0.0-0.4) % Neut % (Auto) (45-73) % Lymph % (Auto) (20-40) % [place] % (Auto) (2-11) % Eos % (Auto) (0-4) % Baso % (Auto) (0-2) % Lymph # (Auto) (1.2-4.9) X10*3/uL [place] # (Auto) (0.1-1.2) X10*3/uL Eos # (Auto) (0.0-0.4) X10*3/uL Baso # (Auto) (0.0-0.2) X10*3/uL Abs Immat Gran (auto) (0.00-0.03) X10*3/uL Absolute Neuts (auto) (2.0-8.3) x10*3/uL Absolute Nucleated RBC (0.0-0.012) X10*3/uL Nucleated RBC % (auto) (0.0-0.2) /100WBC VBG pH 7.22 L (7.32-7.43) VBG pCO2 25 mmHg VBG pO2 60 mmHg VBG HCO3 11 L (22-26) mmol/L VBG O2 Saturation 79.0 % VBG Base Excess -14.7 mmol/L Sodium (135-145) mmol/L Potassium (3.3-5.1) mmol/L Chloride (96-108) mmol/L Carbon Dioxide (22-29) mmol/L Anion Gap (12-20) BUN (9-16) mg/dL Creatinine (0.5-1.4) mg/dL Estim Creat Clear Calc Estimated GFR Random Glucose (60-115) mg/dL Lactic Acid (0.5-2.0) mmol/L Lactic Acid F/U @ 2Hr (0.5-2.0) mmol/L Lactic Acid F/U @ 4Hr 6.2 H* (0.5-2.0) mmol/L Calcium (8.4-10.2) mg/dL Total Creatine Kinase (38-174) U/L Lipase (8-78) U/L Urine Color Urine Appearance Urine pH (5.0-8.0) Ur Specific [place] (1.005-1.025) Urine Protein (NEG-TRACE) MG/DL Urine Glucose (UA) (NEG) MG/DL Urine Ketones (NEG) MG/DL Urine Blood (NEG) Urine Nitrite (NEG) Ur Leukocyte Esterase (NEG) Urine RBC (0) /HPF Urine WBC (0-4) /HPF Ur Squamous Epith Cells /LPF Urine Bacteria /LPF Hyaline Casts /LPF Granular Casts /LPF Urine Opiates Screen (Not Detect) Urine Fentanyl Screen (Not Detect) Ur Barbiturates Screen (Not Detect) Ur Phencyclidine Scrn (Not Detect) Ur Amphetamines Screen (Not Detect) U Benzodiazepines Scrn (Not Detect) Urine Cocaine Screen (Not Detect) U Marijuana (THC) Screen (Not Detect) Ethyl Alcohol mg/dL COVID-19 (REMA) (Negative) COVID-19 Clin Com ECG Data ECG #1: Attestation: I personally reviewed and interpreted this ECG as follows: ECG interpretation date: 02/05/22 ECG interpretation time: 08:28 Prior ECG tracings: not available for review Interpretation: sinus tachycardia, HR 111, normal [place] interval, no ST segment elevations or depressions Critical Care Time Critical Care Time Critical Care Time: Yes Total Critical Care Time: 48 Attestation: I have personally provided critical care time exclusive of time spent on separately billable procedures. Time includes review of lab data, radiology results, discussion with consultants, and monitoring for potential decompensation. Intervention performed as documented. Discharge Plan Discharge Clinical Impression: Alcohol intoxication, Uncontrolled hypertension, Metabolic acidosis, Elevated lactic acid level Patient Disposition: Admitted As Inpatient
[2022-02-05] MEDS: LORazepam 1 MG TABLET 2 MG PO (08:28)
[2022-02-05 08:32] LABS: VBG Base Excess -14.6 mmol/L; VBG HCO3 11 mmol/L (22-26); VBG pCO2 25 mmHg; VBG pH 7.22 (7.32-7.43); VBG pO2 90 mmHg
[2022-02-05 08:41] LABS: Lactic Acid 10.2 mmol/L (0.5-2.0)
[2022-02-05 08:43] LABS: Ethanol 302 mg/dL
[2022-02-05 08:44] LABS: Venous Blood Gas Refer to POC result
[2022-02-05 08:47] LABS: Anion Gap 29 (12-20); Blood Urea Nitrogen 12 mg/dL (9-16); Calcium 9.2 mg/dL (8.4-10.2); Carbon Dioxide 11 mmol/L (22-29); Chloride 103 mmol/L (96-108); Creatinine Clr Calc Pharmacy 128.4; Estimated Glomerular Filt Rate > 60; Glucose Random 78 mg/dL (60-115); Sodium 139 mmol/L (135-145)
[2022-02-05] MEDS: lisinopriL 20 MG TABLET PO (09:19)
[2022-02-05] MEDS: 0.9 % Sodium Chloride 1,000 ML 999 ML IVCONT ×5 (09:19→13:36)
[2022-02-05] MEDS: Gabapentin 300 MG CAPSULE PO ×3 (09:20→21:56)
[2022-02-05] MEDS: cloNIDine HCL 0.2 MG TABLET 0.3 MG PO ×2 (09:39→11:57)
--- NOTE | 2022-02-05 09:40 | PC.NURSE ---
Pt alert/oriented. Denies SI or HI. States ETOH binge x 3-4 days to help treat anxiety. Face flushed. Sinus tach on tele. IV established and fluids started. Medicated as charted. Pt appears very anxious. HTN, Clonidine given
[2022-02-05] MEDS: ondansetron HCL 4 MG/2 ML VIAL IVPUSH ×2 (10:00→13:24)
[2022-02-05] MEDS: Pantoprazole Sodium 40 MG/10 ML VIAL IVPUSH (10:17)
--- NOTE | 2022-02-05 10:24 | PC.NURSE ---
Pt vomiting s/p PO meds. vomitus, brown in color. Protonix given however while pushing pt reporting pain in abd and funny feeling Fluids continue to infuse. Labetalol given for HTN, BP improved. Pt unable to tolerate small sip of water s/p zofran, will await for PO pheno admin. Dad at bedside, Updated with plan of care by Ashia NEGRON
[2022-02-05 10:28] LABS: Reflex Lactate? Lactic Acid Added
[2022-02-05] MEDS: VerapamiL HCL SR 180 MG TABLET.ER PO (11:26)
[2022-02-05 11:28] LABS: ~Lactic Acid-LAB USE ONLY 10.4 mmol/L (0.5-2.0)
[2022-02-05 11:35] LABS: Amphetamine Screen Urine Not Detected (Not Detect); Barbiturates, Urine Not Detected (Not Detect); Benzodiazepines Screen Urine Not Detected (Not Detect); Cannabinoid Screen Urine Not Detected (Not Detect); Cocaine Screen Urine Not Detected (Not Detect); Fentanyl, urine Not Detected (Not Detect); Opiate Screen Urine Not Detected (Not Detect); Phencyclidine Screen Urine Not Detected (Not Detect)
[2022-02-05 12:00] LABS: Lipase 28 U/L (8-78)
[2022-02-05 12:08] LABS: Appearance Urine CLEAR; Color Urine YELLOW; Glucose Urine UA NEG (NEG); Leukocyte Esterase Urine NEG (NEG); Nitrite Urine NEG (NEG); Specific Gravity - Urine >= 1.030 (1.005-1.025); UACC Culture Trigger NO; Urine Blood 2+ (NEG); Urine Ketones 40 MG/DL (NEG); Urine Protein 1+ MG/DL (NEG-TRACE)
[2022-02-05 12:43] LABS: VBG Base Excess -14.7 mmol/L; VBG HCO3 11 mmol/L (22-26); VBG pCO2 25 mmHg; VBG pH 7.22 (7.32-7.43); VBG pO2 60 mmHg
[2022-02-05 12:44] LABS: Venous Blood Gas Refer to POC result
[2022-02-05 13:06] LABS: Reflex Lactate? 2 Y
[2022-02-05 13:09] LABS: Blood Urea Nitrogen 10 mg/dL (9-16); Creatinine Clr Calc Pharmacy 148.8; Estimated Glomerular Filt Rate > 60; Glucose Random 75 mg/dL (60-115)
[2022-02-05 13:18] LABS: Anion Gap 25 (12-20); Calcium 8.1 mg/dL (8.4-10.2); Carbon Dioxide 11 mmol/L (22-29); Chloride 106 mmol/L (96-108); Potassium 4.4 mmol/L (3.3-5.1); Sodium 138 mmol/L (135-145)
[2022-02-05 13:27] LABS: Granular Casts Urine 0-2 /LPF
[2022-02-05 13:29] LABS: WBC Urine 0 /HPF (0-4)
[2022-02-05 13:30] LABS: Squamous Epithelial Cell Urine TRACE /LPF
[2022-02-05] MEDS: PHENobarbitaL 200 MG, PHENobarbitaL 60 MG 260 MG PO ×2 (13:37→16:25)
[2022-02-05 14:13] LABS: ~Lactic Acid-LAB USE ONLY 6.2 mmol/L (0.5-2.0)
[2022-02-05] MEDS: Sodium Bicarbonate 8.4% 150 MEQ in Dextrose 5 % 850 ML 100 MEQ IV ×2 (14:16→22:05)
[2022-02-05] MEDS: Metoclopramide HCl 10 MG/2 ML VIAL IVPUSH (14:49)
--- NOTE | 2022-02-05 15:25 | PM.IMHP ---
History of Present Illness Date of Service: 02/05/22 Chief Complaint: alcohol withdrawal 36 y/o male with history of HTN, anxiety, HLD, alcohol dependency bought to ED by police under section 12 for alcohol intoxication and erratic behavior . 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 Additionally he states that he has been more anxious althought he denies thought of self harm. He has been having intractable nausea and vomitting ine ED without abdominal pain. He states that he last drank yesterday yet his alcohol level when he came in was 302. Further lab work. Lactic acid of 10 and has come down to 6, there are no sings of symptoms of sepsis or acute infection. CT of abdomen showed enlarged fatty liver. He has been given phenobarbital for alcohol withdrawal Review of Systems Review of Systems: Gen: no fever Resp: no sob, no cough CV: no chest, no CHUNG, no leg edema GI: + n/v, no abd pain Neuro: No confusion Psych: no SI/Hi Yes all other systems are reviewed and are negative [facility] Medical History Anxiety Fear of flying Gastritis HTN (hypertension) Palpitation Family History Father Afib CHF (congestive heart failure) CVD (cardiovascular disease) Mother Stroke Mental health disorder Brother Asthma Maternal Grandfather Mental health disorder Maternal Uncle Mental health disorder Surgical History Pyogenic granuloma Social History Household Members: Family Housing: Unknown / Unable to assess Do you presently have visiting nurse or other home services: No Unable to assess alcohol history related to: Unknown Alcohol intake: current Alcohol intake frequency: a few times a week Patient Tobacco Use Status: Never used Tobacco e-Cigarette/Vaping Use: Currently Using (sometimes ) Second Hand Smoke Exposure: No Use of substances other than those prescribed or required for medical reasons: Unknown Currently Displaying Signs/Symptoms of Drug Intoxication Withdrawal: No Have you been hit, kicked, punched, or otherwise hurt by someone within the past year? 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 [employer] Cognitive needs: No Hearing needs: No Vision needs: No Meds Allergies Allergy/AdvReac Type Severity Reaction Status Date / Time Tree nuts Allergy Unknown Unknown Verified 12/18/21 08:58 Active Medications: Current Medications Clonidine HCl (Clonidine Hcl 0.2 Mg Tablet) 0.3 mg PO TID [facility]; Protocol Last Admin: 02/05/22 11:57 Dose: 0.3 mg Gabapentin (Gabapentin 300 Mg Capsule) 300 mg PO TID [facility] Last Admin: 02/05/22 14:49 Dose: 300 mg Sodium Bicarbonate 150 meq/ (Dextrose) 1,000 mls @ 100 mls/hr IV .Q10H [facility] Last Admin: 02/05/22 14:16 Dose: 100 mls/hr Lisinopril (Lisinopril 20 Mg Tablet) 20 mg PO DAILY [facility]; Protocol Last Admin: 02/05/22 09:19 Dose: 20 mg Lorazepam (Lorazepam 0.5 Mg Tablet) 0.5 mg PO BID PRN PRN Reason: anxiety Pharmacy Consult (Consult Rx Etoh Phenob Po Dose) 1 each MISCELLANE ONCE PRN; Protocol PRN Reason: Consult order Phenobarbital (Phenobarbital 30 Mg Tablet) 30 mg PO Q4H PRN PRN Reason: Breakthrough alcohol withdrawa Phenobarbital 200 mg/ (Phenobarbital 60 mg) 260 mg PO Q3H [facility] Stop: 02/05/22 16:01 Last Admin: 02/05/22 13:37 Dose: 260 mg Phenobarbital (Phenobarbital 30 Mg Tablet) 60 mg PO BID@1100,2300 [facility] Stop: 02/07/22 11:01 Phenobarbital (Phenobarbital 30 Mg Tablet) 30 mg PO BID@1100,2300 [facility] Stop: 02/09/22 11:01 Phenobarbital (Phenobarbital 30 Mg Tablet) 30 mg PO BEDTIME@2300 [facility] Stop: 02/10/22 23:01 Verapamil HCl (Verapamil Hcl Sr 180 Mg Tablet.Er) 180 mg PO DAILY [facility]; Protocol Last Admin: 02/05/22 11:26 Dose: 180 mg Home Medications Medication Instructions Recorded Confirmed Last Taken Type clonidine HCl 0.1 mg tablet 1 tab PO TID 02/05/22 02/05/22 Unknown History gabapentin 300 mg capsule 1 cap PO TID 02/05/22 02/05/22 Unknown History lorazepam 0.5 mg tablet 1 tab PO BID PRN anxiety 02/05/22 02/05/22 Unknown History Physical Exam Vital Signs and Narrative: Vital Signs: Last Vital Signs Temp 99 F 02/05/22 05:08 Pulse 113 H 02/05/22 13:28 Resp 20 02/05/22 13:28 BP 169/94 H 02/05/22 13:28 Pulse Ox 97 02/05/22 13:28 O2 Del Method 02/05/22 13:28 BMI result Body Mass Index 26.9 Const: Other: Constitutional: Alert, in no distress, Mental Status: Oriented to person, place and time. Eyes: Pupils are equal, round and reactive to light. Ear, Nose and Throat: Oropharynx clear, mucous membranes moist. Ears and nose without deformity Respiratory: Clear to auscultation. No wheezing, rales or rhonchi. Cardiovascular: S1 S2 regular. No murmurs, rubs or gallops. Gastrointestinal: Abdomen soft, non-tender, non-distended. Normal bowel sounds.? Neurologic: Cranial nerves II-XII grossly intact. No focal neurological deficits. Moves all extremities spontaneously.? Skin: No rashes or lesions.? Musculoskeletal: No cyanosis or clubbing. Psychiatric: Normal mood and affect, denies SI/HI Results Labs CBC and Chem 7: 02/07/22 05:46 02/07/22 07:33 Labs: Laboratory Results - last 24 hr 02/05/22 02/05/22 02/05/22 04:03 04:38 04:38 MCV 82.0 MCH 26.8 L MCHC 32.7 RDW 14.4 Plt Count 461 H MPV 9.9 Immature Gran % (Auto) 0.6 H Neut % (Auto) 81.1 H Lymph % (Auto) 13.5 L [place] % (Auto) 4.0 Eos % (Auto) 0.0 Baso % (Auto) 0.8 Lymph # (Auto) 1.7 [place] # (Auto) 0.5 Eos # (Auto) 0.0 Baso # (Auto) 0.1 Abs Immat Gran (auto) 0.07 H Absolute Neuts (auto) 10.0 H Absolute Nucleated RBC 0.000 Nucleated RBC % (auto) 0.0 VBG pH VBG pCO2 VBG pO2 VBG HCO3 VBG O2 Saturation VBG Base Excess Anion Gap Estim Creat Clear Calc Estimated GFR Random Glucose Lactic Acid Lactic Acid F/U @ 2Hr Lactic Acid F/U @ 4Hr Calcium Total Creatine Kinase Lipase Urine Color Urine Appearance Urine pH Ur Specific [place] Urine Protein Urine Glucose (UA) Urine Ketones Urine Blood Urine Nitrite Ur Leukocyte Esterase Urine RBC Urine WBC Ur Squamous Epith Cells Urine Bacteria Hyaline Casts Granular Casts Urine Opiates Screen Urine Fentanyl Screen Ur Barbiturates Screen Ur Phencyclidine Scrn Ur Amphetamines Screen U Benzodiazepines Scrn Urine Cocaine Screen U Marijuana (THC) Screen Ethyl Alcohol 433 H* COVID-19 (REMA) Negative COVID-19 Clin Com See Note 02/05/22 02/05/22 02/05/22 04:38 08:22 08:23 MCV MCH MCHC RDW Plt Count MPV Immature Gran % (Auto) Neut % (Auto) Lymph % (Auto) [place] % (Auto) Eos % (Auto) Baso % (Auto) Lymph # (Auto) [place] # (Auto) Eos # (Auto) Baso # (Auto) Abs Immat Gran (auto) Absolute Neuts (auto) Absolute Nucleated RBC Nucleated RBC % (auto) VBG pH VBG pCO2 VBG pO2 VBG HCO3 VBG O2 Saturation VBG Base Excess Anion Gap 28 H 29 H Estim Creat Clear Calc 129.8 128.4 Estimated GFR > 60 > 60 Random Glucose 81 78 Lactic Acid 10.2 H* Lactic Acid F/U @ 2Hr Lactic Acid F/U @ 4Hr Calcium 9.3 D 9.2 Total Creatine Kinase 595 H Lipase 28 Urine Color Urine Appearance Urine pH Ur Specific [place] Urine Protein Urine Glucose (UA) Urine Ketones Urine Blood Urine Nitrite Ur Leukocyte Esterase Urine RBC Urine WBC Ur Squamous Epith Cells Urine Bacteria Hyaline Casts Granular Casts Urine Opiates Screen Urine Fentanyl Screen Ur Barbiturates Screen Ur Phencyclidine Scrn Ur Amphetamines Screen U Benzodiazepines Scrn Urine Cocaine Screen U Marijuana (THC) Screen Ethyl Alcohol COVID-19 (REMA) COVID-19 [employer] 02/05/22 02/05/22 02/05/22 08:23 08:23 10:53 MCV MCH MCHC RDW Plt Count MPV Immature Gran % (Auto) Neut % (Auto) Lymph % (Auto) [place] % (Auto) Eos % (Auto) Baso % (Auto) Lymph # (Auto) [place] # (Auto) Eos # (Auto) Baso # (Auto) Abs Immat Gran (auto) Absolute Neuts (auto) Absolute Nucleated RBC Nucleated RBC % (auto) VBG pH 7.22 L VBG pCO2 25 VBG pO2 90 VBG HCO3 11 L VBG O2 Saturation 93.0 VBG Base Excess -14.6 Anion Gap Estim Creat Clear Calc Estimated GFR Random Glucose Lactic Acid Lactic Acid F/U @ 2Hr 10.4 H* Lactic Acid F/U @ 4Hr Calcium Total Creatine Kinase Lipase Urine Color Urine Appearance Urine pH Ur Specific [place] Urine Protein Urine Glucose (UA) Urine Ketones Urine Blood Urine Nitrite Ur Leukocyte Esterase Urine RBC Urine WBC Ur Squamous Epith Cells Urine Bacteria Hyaline Casts Granular Casts Urine Opiates Screen Urine Fentanyl Screen Ur Barbiturates Screen Ur Phencyclidine Scrn Ur Amphetamines Screen U Benzodiazepines Scrn Urine Cocaine Screen U Marijuana (THC) Screen Ethyl Alcohol 302 H* COVID-19 (REMA) COVID-19 [employer] 02/05/22 02/05/22 02/05/22 11:15 12:01 12:34 MCV MCH MCHC RDW Plt Count MPV Immature Gran % (Auto) Neut % (Auto) Lymph % (Auto) [place] % (Auto) Eos % (Auto) Baso % (Auto) Lymph # (Auto) [place] # (Auto) Eos # (Auto) Baso # (Auto) Abs Immat Gran (auto) Absolute Neuts (auto) Absolute Nucleated RBC Nucleated RBC % (auto) VBG pH VBG pCO2 VBG pO2 VBG HCO3 VBG O2 Saturation VBG Base Excess Anion Gap 25 H Estim Creat Clear Calc 148.8 Estimated GFR > 60 Random Glucose 75 Lactic Acid Lactic Acid F/U @ 2Hr Lactic Acid F/U @ 4Hr Calcium 8.1 L D Total Creatine Kinase Lipase Urine Color YELLOW Urine Appearance CLEAR Urine pH 6.0 Ur Specific [place] >= 1.030 H Urine Protein 1+ H Urine Glucose (UA) NEG Urine Ketones 40 Urine Blood 2+ H Urine Nitrite NEG Ur Leukocyte Esterase NEG Urine RBC 1-4 Urine WBC 0 Ur Squamous Epith Cells TRACE Urine Bacteria NONE Hyaline Casts 1-4 Granular Casts 0-2 Urine Opiates Screen Not Detected Urine Fentanyl Screen Not Detected Ur Barbiturates Screen Not Detected Ur Phencyclidine Scrn Not Detected Ur Amphetamines Screen Not Detected U Benzodiazepines Scrn Not Detected Urine Cocaine Screen Not Detected U Marijuana (THC) Screen Not Detected Ethyl Alcohol COVID-19 (REMA) COVID-19 [employer] Com 02/05/22 02/05/22 12:34 13:39 MCV MCH MCHC RDW Plt Count MPV Immature Gran % (Auto) Neut % (Auto) Lymph % (Auto) [place] % (Auto) Eos % (Auto) Baso % (Auto) Lymph # (Auto) [place] # (Auto) Eos # (Auto) Baso # (Auto) Abs Immat Gran (auto) Absolute Neuts (auto) Absolute Nucleated RBC Nucleated RBC % (auto) VBG pH 7.22 L VBG pCO2 25 VBG pO2 60 VBG HCO3 11 L VBG O2 Saturation 79.0 VBG Base Excess -14.7 Anion Gap Estim Creat Clear Calc Estimated GFR Random Glucose Lactic Acid Lactic Acid F/U @ 2Hr Lactic Acid F/U @ 4Hr 6.2 H* Calcium Total Creatine Kinase Lipase Urine Color Urine Appearance Urine pH Ur Specific [place] Urine Protein Urine Glucose (UA) Urine Ketones Urine Blood Urine Nitrite Ur Leukocyte Esterase Urine RBC Urine WBC Ur Squamous Epith Cells Urine Bacteria Hyaline Casts Granular Casts Urine Opiates Screen Urine Fentanyl Screen Ur Barbiturates Screen Ur Phencyclidine Scrn Ur Amphetamines Screen U Benzodiazepines Scrn Urine Cocaine Screen U Marijuana (THC) Screen Ethyl Alcohol COVID-19 (REMA) COVID-19 Clin Com Imaging Radiologist's Impressions: Impressions Abdomen/Pelvis CT 02/05/22 12:40 IMPRESSION: Enlarged fatty liver. No other significant abnormality is seen. Fleischner guidelines were followed. Assessment and Plan (1) Delirium tremens: Status: Acute (2) Alcohol intoxication: Status: Acute (3) Metabolic acidosis: Status: Acute (4) Uncontrolled hypertension: Status: Acute Plan 36/m with anxiety desoreder, HTN, alcohol dependency here with alcohol intoxication and now alcohol withdrawal, and likely alcohol gastritis, lactic acidosis related to alcohol use 1/Alcohol intoxication 2/Alcohol withdrawal with severe psychomotor agitations -Phenobarbital as started in ED -Folic acid and thiamine supplement -Toxic effect of alcohol discussed with him--He is essentially drinking himself to -CARE team eval before discharge and to offer him resources -May need ICU admission 2/Lactic acidosis with anion gap--suspect related to alcohol. -lactic acid is trending down -Needs aggresive hydration -continue trending lactic acid and BMP 3/ Anxiety desorder--Psych consult 4/ Continue home meds, PRN Hydralazine or labetalol for HTN Quality Stroke Does the patient have a stroke diagnosis?: No VTE Prior VTE?: No VTE Risk Level:: Medical - low VTE Device Contraindication: Treatment Not Indicated VTE Drug Contraindication: Treatment Not Indicated
--- NOTE | 2022-02-05 15:42 | MHC.CM.PN ---
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 HE DOES NOT HAVE A HCP AND IS AWARE THAT CASE MANAGEMENT CAN ASSIST WITH ONE AT A MORE APPROPRIATE TIME. PLAN IS FOR PATIENT TO BE ADMITTED AND THE EVALUATED ONCE MEDICALLY CLEARED.
[2022-02-05] MEDS: Famotidine/PF 20 MG/2 ML VIAL IVPUSH (16:25)
--- NOTE | 2022-02-05 16:29 | PHA.MEDREC ---
Pharmacy Consult ? Medication Reconciliation Pharmacy has completed the medication reconciliation.
--- NOTE | 2022-02-05 16:33 | PC.NURSE ---
pt a&ox3, sinus tach on monitor, c/o increased anxiety, increased agitation, restless, medicated per provider order.
[2022-02-05 17:11] LABS: Anion Gap 22 (12-20); Blood Urea Nitrogen 7 mg/dL (9-16); Carbon Dioxide 13 mmol/L (22-29); Chloride 104 mmol/L (96-108); Creatinine Clr Calc Pharmacy 158.5; Estimated Glomerular Filt Rate > 60; Glucose Random 104 mg/dL (60-115); Lactic Acid 3.7 mmol/L (0.5-2.0); Sodium 135 mmol/L (135-145)
--- NOTE | 2022-02-05 17:54 | PC.NURSE ---
pt experiencing increased nausea, vomiting, dry heaving. atarax prn held, pt not tolerating po, provider notified.
[2022-02-05] MEDS: Thiamine HCL 500 MG in 0.9 % Sodium Chloride 100 ML 210 MG IV (18:11)
[2022-02-05] MEDS: hydrOXYzine HCL 50 MG/ML VIAL 25 MG IM (18:15)
--- NOTE | 2022-02-05 18:18 | PC.NURSE ---
medicated per provider order.
[2022-02-05 18:54] LABS: Reflex Lactate? Lactic Acid Added
--- NOTE | 2022-02-05 20:09 | P.CONCC_ITS ---
History of Present Illness Data of Consult Service Date: 02/05/22 Requesting physician: Rangel Dewey Primary Care Provider: Imtiaz Llanes, [facility]- HPI Reason for consult: severe alcohol withdrawal with metabolic acidosis Patient is a 36-year-old male with a past medical history of HTN, HLD, anxiety and alcohol dependency who a Section 12 by the police earlier today for alcohol intoxication and erratic behavior. He was found to be in mild rhabdomyolysis, intoxicated, lactic acidosis that has been coming down with no signs of infection noted. CT abd showed enlarged fatty liver. He was admitted to the hospitalist service and placed on a phenobarb protocol however his CIWA has been increasing from 16 this afternoon to 29 most recently. At the bedside, patient was at very obviously anxious, agitated, irritable, slightly diaphoretic and very clearly uncomfortable. Physical exam was otherwise unremarkable. Vitals notable for tachycardic at 116BPM, sinus rhythm and hypertensive 197/109. Patient will be transferred to the ICU for further monitoring, he will also be placed on a Precedex drip for his alcohol withdrawal. Review of Systems Review of Systems: Yes all other systems are reviewed and are negative [facility] Past Medical History Medical History Anxiety Fear of flying Gastritis HTN (hypertension) Palpitation Family History Family History Father Afib CHF (congestive heart failure) CVD (cardiovascular disease) Mother Stroke Mental health disorder Brother Asthma Maternal Grandfather Mental health disorder Maternal Uncle Mental health disorder Surgical History Surgical History Pyogenic granuloma Social History Social History Housing: House Alcohol intake: current Alcohol intake frequency: a few times a week Patient Tobacco Use Status: Never used Tobacco e-Cigarette/Vaping Use: Currently Using (sometimes ) Second Hand Smoke Exposure: No Use of substances other than those prescribed or required for medical reasons: No Advance Directives: No Advance Directives Information Provided: Yes service: Yes Current occupational status: employed 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 [employer] Cognitive needs: No Hearing needs: No Vision needs: No Meds Allergies Allergy/AdvReac Type Severity Reaction Status Date / Time Tree nuts Allergy Unknown Unknown Verified 12/18/21 08:58 Active Medications: Current Medications Folic Acid (Folic Acid 1 Mg Tablet) 1 mg PO DAILY [facility] Stop: 02/08/22 09:01 Gabapentin (Gabapentin 300 Mg Capsule) 300 mg PO TID [facility] Last Admin: 02/05/22 14:49 Dose: 300 mg Sodium Bicarbonate 150 meq/ (Dextrose) 1,000 mls @ 100 mls/hr IV .Q10H [facility] Last Admin: 02/05/22 14:16 Dose: 100 mls/hr Dextrose/Sodium Chloride (D51/2ns) 1,000 mls @ 200 mls/hr IVCONT .Q5H [facility] Dexmedetomidine HCl (Precedex) 400 mcg in 100 mls @ 0 mls/hr IVCONT .Q0M [facility]; Protocol Lisinopril (Lisinopril 20 Mg Tablet) 20 mg PO DAILY [facility]; Protocol Last Admin: 02/05/22 09:19 Dose: 20 mg Lorazepam (Lorazepam 0.5 Mg Tablet) 0.5 mg PO BID PRN PRN Reason: anxiety Melatonin (Melatonin 3 Mg Tablet) 6 mg PO BEDTIME PRN PRN Reason: Insomnia Morphine Sulfate (Morphine Sulfate 4 Mg/Ml Cartridge) 2 mg IVPUSH Q4H [facility]N; Protocol PRN Reason: Pain, Severe (Pain Scale 7-10) Ondansetron HCl (Ondansetron Hcl 4 Mg/2 Ml Vial) 4 mg IVPUSH Q8H PRN PRN Reason: Nausea and Vomiting Pharmacy Consult (Consult Rx Etoh Phenob Po Dose) 1 each MISCELLANE ONCE [facility]; Protocol PRN Reason: Consult order Sodium Chloride (0.9 % Sodium Chloride Flush 3 Ml Syringe) 3 ml IVFLUSH QSHIFT [facility] Last Admin: 02/05/22 16:26 Dose: Not Given Verapamil HCl (Verapamil Hcl Sr 180 Mg Tablet.Er) 180 mg PO DAILY [facility]; Protocol Last Admin: 02/05/22 11:26 Dose: 180 mg Home Medications Medication Instructions Recorded Confirmed Last Taken Type clonidine HCl 0.1 mg tablet 1 tab PO TID 02/05/22 02/05/22 Unknown History gabapentin 300 mg capsule 1 cap PO TID 02/05/22 02/05/22 Unknown History lorazepam 0.5 mg tablet 1 tab PO BID PRN anxiety 02/05/22 02/05/22 Unknown History Physical Exam Vital Signs: Vital Signs: Last Vital Signs Temp 99.1 F 02/05/22 16:04 Pulse 111 H 02/05/22 16:04 Resp 13 02/05/22 16:04 BP 150/87 H 02/05/22 16:04 Pulse Ox 97 02/05/22 16:04 O2 Del Method 02/05/22 16:04 BMI result Body Mass Index 26.9 Const: General: cooperative, healthy appearing, well developed, Physically active and anxious Nutritional Appearance: average body habitus Orientation/consciousness: patient oriented x3 Limitations: no limitations HEENT: Head: Yes normal to inspection, Yes normocephalic and Yes atraumatic Ears: hearing grossly normal bilaterally and external ears normal General nose exam: Normal external nose present and Normal nares present Face and sinus: Yes normal facial exam and Yes face symmetric Eyes: Pupils: Equal, round and reactive pupils present Neck: Neck: Yes normal visual inspection, Yes full ROM, Yes trachea midline and Yes supple Resp: Effort & Inspection: normal respiratory effort Auscultation: clear to auscultation bilaterally Cardio: Jugular venous distension: no JVD Rate: tachycardic Rhythm: regular rhythm Heart sounds: normal S1 and S2 GI: Inspection: Yes normal to inspection Palpation (GI): Soft to palpation and nontender Skin: General skin exam: no rashes or lesions noted Neuro: General: patient oriented x3 and Unable to assess gait Cranial nerves: Yes Equal, round and reactive pupils present Cognition (Neuro): normal cognition Gait exam (Neuro): Unable to assess gait Extrem: General: Yes normal to inspection and Yes full ROM Psych: Appearance: grossly normal Mental Status: mental status grossly normal Affect: Anxious affect present Attitude: cooperative Thought process: Normal thought process present Thought content: suicidality and no homicidality Insight: Fair insight present (Psych) Judgement: Fair judgement present (Psych) Results Labs CBC & Chem 7: 02/05/22 04:38 02/05/22 16:50 Labs: Short CBC 02/05/22 Range/Units 04:38 WBC 12.3 H (4.8-10.8) X10*3/uL Hgb 14.2 (14.0-18.0) g/dl Hct 43.4 (42.0-52.0) % Plt Count 461 H (160-400) X10*3/uL BMP 02/05/22 02/05/22 02/05/22 04:38 08:23 12:34 Sodium 142 139 138 Potassium 4.1 4.0 4.4 Chloride 105 103 106 Carbon Dioxide 13 L 11 L 11 L BUN 11 12 10 Creatinine 0.94 0.95 0.82 Calcium 9.3 D 9.2 8.1 L D 02/05/22 16:50 Sodium 135 Potassium 4.0 Chloride 104 Carbon Dioxide 13 L BUN 7 L Creatinine 0.77 Calcium 8.0 L Cardiac Enzymes 02/05/22 Range/Units 08:23 Total Creatine Kinase 595 H (38-174) U/L Urine 02/05/22 Range/Units 12:01 Urine Color YELLOW Urine Appearance CLEAR Urine pH 6.0 (5.0-8.0) Ur Specific [place] >= 1.030 H (1.005-1.025) Urine Protein 1+ H (NEG-TRACE) MG/DL Urine Glucose (UA) NEG (NEG) MG/DL Assessment and Plan (1) Alcohol intoxication: Status: Acute thiamine given, folic acid ordered, precedex drip, CIWA scale, continue to monitor vitals (2) Metabolic acidosis: Status: Acute follow vbg (3) Uncontrolled hypertension: Status: Acute home meds (4) Anxiety disorder: Status: Acute precedex drip, psych consult (5) Rhabdomyolysis: Status: Acute follow CPK, give IVF Plan Pt will be placed on precedex drip, monitored via CIWA scale for withdrawal, IVF, folic acid, given thiamine Critical Care Time Critical Care Time (minutes): 60
[2022-02-05] MEDS: dexmedeTOMIDidine HCL/NS 400 MCG/100 ML INFUS..BTL 24.38 MCG IVCONT (20:21)
[2022-02-05 20:38] LABS: Venous Blood Gas Refer to POC result
--- NOTE | 2022-02-05 20:43 | PC.NURSE ---
pt experiencing increased agitation, anxiety, restlessness, provider at bedside. precedex started per provider order.
--- NOTE | 2022-02-05 20:50 | PC.NURSE ---
Titration increased to 1.4 mcg/kg/hr early per verbal provider order.
[2022-02-05 21:29] LABS: ~Lactic Acid-LAB USE ONLY 1.5 mmol/L (0.5-2.0)
[2022-02-05] MEDS: Lactated Ringers 1,000 ML 999 ML IV ×2 (21:41→22:42)
[2022-02-05] MEDS: LORazepam 0.5 MG TABLET PO (21:56)
[2022-02-05 22:01] LABS: Venous Blood Gas Refer to POC result
[2022-02-05 22:02] LABS: VBG Base Excess -11.9 mmol/L; VBG HCO3 11 mmol/L (22-26); VBG pCO2 20 mmHg; VBG pH 7.34 (7.32-7.43); VBG pO2 119 mmHg
[2022-02-05] MEDS: dexmedeTOMIDidine HCL/NS 400 MCG/100 ML INFUS..BTL 31.7 MCG IVCONT (22:43)
[2022-02-05] MEDS: Lactated Ringers 1,000 ML 200 ML IVCONT (23:45)
[2022-02-06] VITALS (19 sets, daily range): BP systolic 131–212; BP diastolic 84–110; PULSE 71–110; RESP 11–23; TEMP 36.4–37.3; O2SAT 91–98; BMI 25.7
[2022-02-06 00:54] LABS: Alanine Aminotransferase 36 U/L (0-40); Alkaline Phosphatase 89 U/L (39-117); Anion Gap 19 (12-20); Aspartate Amino Transferase 88 U/L (5-37); Bilirubin Total 0.6 mg/dL (0.0-1.0); Blood Urea Nitrogen 4 mg/dL (9-16); Calcium 7.8 mg/dL (8.4-10.2); Carbon Dioxide 14 mmol/L (22-29); Chloride 106 mmol/L (96-108); Creatinine Clr Calc Pharmacy 160.5; Estimated Glomerular Filt Rate > 60; Glucose Random 114 mg/dL (60-115); Phosphorus 1.2 mg/dL (2.7-4.5); Sodium 135 mmol/L (135-145); Total Protein 6.5 g/dL (6.5-8.0)
[2022-02-06] MEDS: Potassium Phosphate/NS 15 MMOL/250 ML PLAST..BAG 62.5 MMOL IV ×2 (01:12→11:04)
[2022-02-06] MEDS: 0.9 % Sodium Chloride 1,000 ML 150 ML IVCONT ×2 (01:15→07:38)
[2022-02-06] MEDS: dexmedeTOMIDidine HCL/NS 400 MCG/100 ML INFUS..BTL 31.7 MCG IVCONT (01:29)
[2022-02-06] MEDS: dexmedeTOMIDidine HCL/NS 400 MCG/100 ML INFUS..BTL 36.57 MCG IVCONT ×2 (04:49→07:31)
[2022-02-06 05:36] LABS: MANUAL DIFF FLAG NO
[2022-02-06 05:39] LABS: Basophils Percent Auto 0.4 % (0-2); Eosinophils Percent Auto 0.1 % (0-4); Hematocrit 33.1 % (42.0-52.0); Hemoglobin 10.9 g/dl (14.0-18.0); Imm Gran Abs Auto 0.03 X10*3/uL (0.00-0.03); Imm Gran Pct Auto 0.4 % (0.0-0.4); Lymphocytes Percent Auto 12.7 % (20-40); Mean Corpuscular HGB Conc 32.9 g/dl (31.0-36.0); Mean Corpuscular Volume 82.1 fL (80.0-98.0); Monocytes Absolute Auto 0.6 X10*3/uL (0.1-1.2); Monocytes Percent Auto 7.7 % (2-11); Neutrophils Absolute Auto 6.2 x10*3/uL (2.0-8.3); Neutrophils Percent Auto 78.7 % (45-73); Platelet Count 216 X10*3/uL (160-400); Red Blood Count 4.03 X10*6/uL (4.60-5.80); Red Cell Distribution Width 14.1 % (11.0-16.0); White Blood Count 7.9 X10*3/uL (4.8-10.8)
[2022-02-06 06:07] LABS: Alanine Aminotransferase 32 U/L (0-40); Albumin Level 3.7 g/dL (3.5-5.0); Alkaline Phosphatase 84 U/L (39-117); Anion Gap 16 (12-20); Aspartate Amino Transferase 73 U/L (5-37); Bilirubin Direct 0.3 mg/dL (0.0-0.5); Bilirubin Total 0.7 mg/dL (0.0-1.0); Blood Urea Nitrogen 3 mg/dL (9-16); Calcium 7.4 mg/dL (8.4-10.2); Carbon Dioxide 19 mmol/L (22-29); Chloride 107 mmol/L (96-108); Creatinine Clr Calc Pharmacy 162.7; Estimated Glomerular Filt Rate > 60; Glucose Random 127 mg/dL (60-115); Magnesium 1.4 mg/dL (1.6-2.6); Phosphorus 1.9 mg/dL (2.7-4.5); Sodium 138 mmol/L (135-145)
[2022-02-06] MEDS: Magnesium Sulfate/D5W 1 GM/100 ML PIGGYBACK IV (06:35)
[2022-02-06] MEDS: lisinopriL 20 MG TABLET PO (07:39)
[2022-02-06] MEDS: LORazepam 0.5 MG TABLET PO (07:40)
[2022-02-06] MEDS: Gabapentin 300 MG CAPSULE PO ×3 (07:40→20:51)
[2022-02-06] MEDS: VerapamiL HCL SR 180 MG TABLET.ER PO (07:40)
[2022-02-06] MEDS: Folic Acid 1 MG TABLET PO (07:40)
[2022-02-06 07:42] LABS: VBG Base Excess -11.5 mmol/L; VBG HCO3 11 mmol/L (22-26); VBG pCO2 19 mmHg; VBG pH 7.36 (7.32-7.43); VBG pO2 90 mmHg
[2022-02-06] MEDS: Sodium Bicarbonate 8.4% 150 MEQ in Dextrose 5 % 850 ML 100 MEQ IV (07:46)
[2022-02-06] MEDS: Lactated Ringers 1,000 ML 150 ML IVCONT ×3 (08:42→20:52)
--- NOTE | 2022-02-06 09:33 | MHC.CARE ---
Please consult care team when medically clear
[2022-02-06] MEDS: PHENobarbitaL 100 MG, PHENobarbitaL 30 MG, PHENobarbitaL 15 MG 145 MG PO ×2 (11:03→15:08)
[2022-02-06] MEDS: ondansetron HCL 4 MG/2 ML VIAL IVPUSH (11:11)
--- NOTE | 2022-02-06 11:55 | MHC.CM.PN ---
Patient continues in ICU. Case Management to follow for discharge planning needs as appropriate.
--- NOTE | 2022-02-06 12:32 | ECG_ITS ---
Test Reason : rhythm change Blood Pressure : / mmHG Vent. Rate : 098 BPM Atrial Rate : 098 BPM P-R Int : 138 ms QRS Dur : 092 ms QT Int : 348 ms P-R-T Axes : 039 081 -75 degrees QTc Int : 444 ms Normal sinus rhythm Left ventricular hypertrophy with repolarization abnormality ( Sokolow-Dailey ) Abnormal ECG When compared with ECG of 05-FEB-2022 08:02, No significant change was found Referred By: Jorge Gonzales Electronically Signed By:EMERY JEFFREY
--- NOTE | 2022-02-06 12:49 | P.PNCC_ITS ---
Subjective Subjective Date of Service: 02/06/22 Interval History: 36-year-old gentleman with underlying history of hypertension, hyperlipidemia, anxiety, and alcohol dependence, now under section 12, admitted 02/05/2022 with alcohol intoxication resulting alcohol withdrawal requiring initiation of Precedex drip and transferred to intensive care unit. No events overnight. Titrated off Precedex drip. Critical Care Time (minutes): 0 Physical Exam Vital Signs: Vital Signs: Last Vital Signs Temp 97.7 F 02/06/22 12:00 Pulse 104 H 02/06/22 12:00 Resp 15 02/06/22 12:00 BP 155/101 H 02/06/22 12:00 Pulse Ox 98 02/06/22 12:00 O2 Del Method 02/06/22 12:00 BMI result Body Mass Index 25.7 Const: General: no acute distress, alert, awake and anxious Eyes: Sclerae: sclerae normal EOM: EOMs intact bilaterally Neck: Neck: Yes no lymphadenopathy, Yes trachea midline and Yes supple Resp: Effort & Inspection: normal respiratory effort and no respiratory distress Auscultation: clear to auscultation bilaterally Cardio: Rate: regular rate Rhythm: regular rhythm Heart sounds: no gallops, no murmurs and no rubs GI: Palpation (GI): Soft to palpation and Other GI palpation findings present ( Nontender) Auscultation: normal bowel sounds Extrem: General: Yes no pedal edema, No clubbing and No cyanosis Objective Data Labs CBC & Chem 7: 02/06/22 05:14 02/06/22 05:14 Labs: Laboratory Results - last 24 hr 02/05/22 02/05/22 02/05/22 12:01 12:34 13:39 WBC RBC Hgb Hct MCV MCH MCHC RDW Plt Count MPV Immature Gran % (Auto) Neut % (Auto) Lymph % (Auto) [place] % (Auto) Eos % (Auto) Baso % (Auto) Lymph # (Auto) [place] # (Auto) Eos # (Auto) Baso # (Auto) Abs Immat Gran (auto) Absolute Neuts (auto) Absolute Nucleated RBC Nucleated RBC % (auto) VBG pH VBG pCO2 VBG pO2 VBG HCO3 VBG O2 Saturation VBG Base Excess Sodium 138 Potassium 4.4 Chloride 106 Carbon Dioxide 11 L Anion Gap 25 H BUN 10 Creatinine 0.82 Estim Creat Clear Calc 148.8 Estimated GFR > 60 Random Glucose 75 Lactic Acid Lactic Acid F/U @ 2Hr Lactic Acid F/U @ 4Hr 6.2 H* Calcium 8.1 L D Phosphorus Magnesium Total Bilirubin Direct Bilirubin AST ALT Alkaline Phosphatase Total Creatine Kinase Total Protein Albumin Urine RBC 1-4 Urine WBC 0 Ur Squamous Epith Cells TRACE Urine Bacteria NONE Hyaline Casts 1-4 Granular Casts 0-2 02/05/22 02/05/22 02/05/22 16:50 16:50 19:06 WBC RBC Hgb Hct MCV MCH MCHC RDW Plt Count MPV Immature Gran % (Auto) Neut % (Auto) Lymph % (Auto) [place] % (Auto) Eos % (Auto) Baso % (Auto) Lymph # (Auto) [place] # (Auto) Eos # (Auto) Baso # (Auto) Abs Immat Gran (auto) Absolute Neuts (auto) Absolute Nucleated RBC Nucleated RBC % (auto) VBG pH VBG pCO2 VBG pO2 VBG HCO3 VBG O2 Saturation VBG Base Excess Sodium 135 Potassium 4.0 Chloride 104 Carbon Dioxide 13 L Anion Gap 22 H BUN 7 L Creatinine 0.77 Estim Creat Clear Calc 158.5 Estimated GFR > 60 Random Glucose 104 D Lactic Acid 3.7 H* Lactic Acid F/U @ 2Hr 1.5 Lactic Acid F/U @ 4Hr Calcium 8.0 L Phosphorus Magnesium Total Bilirubin Direct Bilirubin AST ALT Alkaline Phosphatase Total Creatine Kinase Total Protein Albumin Urine RBC Urine WBC Ur Squamous Epith Cells Urine Bacteria Hyaline Casts Granular Casts 02/05/22 02/05/22 02/05/22 20:24 20:30 21:55 WBC RBC Hgb Hct MCV MCH MCHC RDW Plt Count MPV Immature Gran % (Auto) Neut % (Auto) Lymph % (Auto) [place] % (Auto) Eos % (Auto) Baso % (Auto) Lymph # (Auto) [place] # (Auto) Eos # (Auto) Baso # (Auto) Abs Immat Gran (auto) Absolute Neuts (auto) Absolute Nucleated RBC Nucleated RBC % (auto) VBG pH 7.36 7.34 VBG pCO2 19 20 VBG pO2 90 119 VBG HCO3 11 L 11 L VBG O2 Saturation 96.0 98.0 VBG Base Excess -11.5 -11.9 Sodium Potassium Chloride Carbon Dioxide Anion Gap BUN Creatinine Estim Creat Clear Calc Estimated GFR Random Glucose Lactic Acid Lactic Acid F/U @ 2Hr Lactic Acid F/U @ 4Hr Calcium Phosphorus Magnesium Total Bilirubin Direct Bilirubin AST ALT Alkaline Phosphatase Total Creatine Kinase 5847 H D Total Protein Albumin Urine RBC Urine WBC Ur Squamous Epith Cells Urine Bacteria Hyaline Casts Granular Casts 02/06/22 02/06/22 02/06/22 00:02 05:14 05:14 WBC 7.9 RBC 4.03 L D Hgb 10.9 L D Hct 33.1 L D MCV 82.1 MCH 27.0 MCHC 32.9 RDW 14.1 Plt Count 216 D MPV 10.0 Immature Gran % (Auto) 0.4 Neut % (Auto) 78.7 H Lymph % (Auto) 12.7 L [place] % (Auto) 7.7 Eos % (Auto) 0.1 Baso % (Auto) 0.4 Lymph # (Auto) 1.0 L [place] # (Auto) 0.6 Eos # (Auto) 0.0 Baso # (Auto) 0.0 Abs Immat Gran (auto) 0.03 Absolute Neuts (auto) 6.2 Absolute Nucleated RBC 0.000 Nucleated RBC % (auto) 0.0 VBG pH VBG pCO2 VBG pO2 VBG HCO3 VBG O2 Saturation VBG Base Excess Sodium 135 138 Potassium 4.0 4.0 Chloride 106 107 Carbon Dioxide 14 L 19 L Anion Gap 19 16 BUN 4 L 3 L Creatinine 0.76 0.75 Estim Creat Clear Calc 160.5 162.7 Estimated GFR > 60 > 60 Random Glucose 114 127 H Lactic Acid Lactic Acid F/U @ 2Hr Lactic Acid F/U @ 4Hr Calcium 7.8 L 7.4 L Phosphorus 1.2 L 1.9 L Magnesium 1.4 L* Total Bilirubin 0.6 0.7 Direct Bilirubin 0.3 AST 88 H 73 H ALT 36 32 Alkaline Phosphatase 89 84 Total Creatine Kinase 4680 H 3447 H Total Protein 6.5 6.0 L Albumin 4.0 3.7 Urine RBC Urine WBC Ur Squamous Epith Cells Urine Bacteria Hyaline Casts Granular Casts Microbiology Microbiology Results: Microbiology 02/05/22 09:22 Blood - Venous Blood Culture - Preliminary No growth after 24 hours. 02/05/22 11:26 Blood - Venous Blood Culture - Preliminary Prelim: GPC Gram Stain only Progress Note: A&P Assessment and plan (1) Rhabdomyolysis: Status: Acute (2) Delirium tremens: Status: Acute Plan Assessment: 36-year-old gentleman with alcohol dependence admitted with alcohol intoxication resulting in delirium tremens requiring sedative drips. Plan: Neuro: Delirium tremens, titrated of Precedex. Continue on phenobarbital protocol. Cardiac: No acute issues. Pulmonary: No acute issues. Renal: rhabdomyolysis improving, continue with IV fluid support. Non oliguric. Endo: No acute issues. GI: No acute issues. ID: No acute issues Heme/Onc: No acute issues. Psych: No acute issues. Miscellaneous: No acute issues. Prophylaxis: Heparin Diet: NPO Quality Stroke Does the patient have a stroke diagnosis?: No VTE Prior VTE?: No VTE Risk Level:: Medical - low VTE Device Contraindication: Treatment Not Indicated VTE Drug Contraindication: Treatment Not Indicated
[2022-02-06] MEDS: 0.9 % Sodium Chloride Flush 3 ML SYRINGE IVFLUSH (15:12)
--- NOTE | 2022-02-06 16:54 | PC.NURSE ---
PRECEDEX GTT TURNED OFF AT 1026. CHANGED TO PO PHENBARB. CIWA RANGES FROM 2 - 7. PATIENT STATES HE HAS ANXIETY AT BASELINE. PRN ZOFRAN X 1 ADMINISTERED WITH POSITIVE EFFECT. FAMILY AND FRIENDS BEDSIDE TO VISIT TODAY. OOB TO COMMODE, 2 ASSIST. BM X 2. USES URINAL. ST DEPRESSIONS NOTED ON TELE - MD NOTIFIED AND EKG OBTAINED. HOSPITALIST NOTIFIED OF SBP 170S - NO FURTHER ORDERS AT THIS TIME.
[2022-02-06] MEDS: hydrOXYzine HCL 25 MG TABLET PO (17:50)
[2022-02-06] MEDS: PHENobarbitaL 30 MG TABLET 60 MG PO (20:51)
[2022-02-06] MEDS: hydrALAZINE HCl 20 MG/ML VIAL 10 MG IVPUSH ×2 (20:51→21:34)
--- NOTE | 2022-02-06 21:39 | PM.EVENT ---
Event Note Date of Service: 02/06/22 Event Note: Hypertensive urgency: Likely in setting of anxiety and withdrawal. Also concern for clonidine withdrawal. Patient denies any headaches or blurry visions. Will resume patient's home planned of 0.1 mg t.i.d.. Hydralazine p.r.n. Ativan x1 for anxiety.
[2022-02-06] MEDS: LORazepam 2 MG/ML VIAL 1 MG IVPUSH (21:57)
[2022-02-06] MEDS: cloNIDine HCL 0.1 MG TABLET PO (22:01)
[2022-02-07] VITALS (11 sets, daily range): BP systolic 129–188; BP diastolic 65–110; PULSE 103–130; RESP 18–20; TEMP 36.3–38.1; O2SAT 95–97
[2022-02-07] MEDS: LORazepam 2 MG/ML VIAL 1 MG IVPUSH (01:02)
[2022-02-07] MEDS: hydrALAZINE HCl 20 MG/ML VIAL 10 MG IVPUSH ×3 (02:56→16:00)
[2022-02-07] MEDS: Lactated Ringers 1,000 ML 150 ML IVCONT ×2 (03:01→11:02)
[2022-02-07] MEDS: cloNIDine HCL 0.1 MG TABLET PO (04:49)
[2022-02-07 06:22] LABS: MANUAL DIFF FLAG NO
[2022-02-07 06:38] LABS: Basophils Absolute Auto 0.1 X10*3/uL (0.0-0.2); Basophils Percent Auto 0.6 % (0-2); Eosinophils Absolute Auto 0.1 X10*3/uL (0.0-0.4); Eosinophils Percent Auto 1.1 % (0-4); Hematocrit 40.2 % (42.0-52.0); Hemoglobin 13.1 g/dl (14.0-18.0); Imm Gran Abs Auto 0.03 X10*3/uL (0.00-0.03); Imm Gran Pct Auto 0.4 % (0.0-0.4); Lymphocytes Absolute Auto 1.3 X10*3/uL (1.2-4.9); Lymphocytes Percent Auto 16.6 % (20-40); Mean Corpuscular HGB Conc 32.6 g/dl (31.0-36.0); Mean Corpuscular Hemoglobin 27.2 pg (27.0-33.0); Mean Corpuscular Volume 83.4 fL (80.0-98.0); Mean Platelet Volume 12.6 fL (9.4-12.4); Monocytes Absolute Auto 0.6 X10*3/uL (0.1-1.2); Neutrophils Absolute Auto 5.9 x10*3/uL (2.0-8.3); Neutrophils Percent Auto 73.3 % (45-73); Platelet Count 201 X10*3/uL (160-400); Red Blood Count 4.82 X10*6/uL (4.60-5.80); Red Cell Distribution Width 14.6 % (11.0-16.0)
[2022-02-07 08:20] LABS: Anion Gap 20 (12-20); Blood Urea Nitrogen 2 mg/dL (9-16); Calcium 8.9 mg/dL (8.4-10.2); Carbon Dioxide 16 mmol/L (22-29); Chloride 105 mmol/L (96-108); Creatinine Clr Calc Pharmacy 169.5; Estimated Glomerular Filt Rate > 60; Glucose Random 90 mg/dL (60-115); Magnesium 1.8 mg/dL (1.6-2.6); Phosphorus 1.5 mg/dL (2.7-4.5); Potassium 3.3 mmol/L (3.3-5.1); Sodium 138 mmol/L (135-145)
[2022-02-07] MEDS: cloNIDine HCL 0.2 MG TABLET PO ×3 (08:52→20:55)
[2022-02-07] MEDS: PHENobarbitaL 30 MG TABLET 60 MG PO ×2 (08:52→20:54)
[2022-02-07] MEDS: VerapamiL HCL SR 180 MG TABLET.ER PO (08:52)
[2022-02-07] MEDS: lisinopriL 40 MG TABLET PO (08:52)
[2022-02-07] MEDS: Gabapentin 300 MG CAPSULE PO ×3 (08:52→20:54)
[2022-02-07] MEDS: Folic Acid 1 MG TABLET PO (08:53)
[2022-02-07] MEDS: Thiamine HCL 100 MG TABLET 300 MG PO (08:53)
--- NOTE | 2022-02-07 10:40 | HO.PM.IMPN ---
Subjective Subjective Date of Service: 02/07/22 Interval History: f/u on alcohol withdrawal/DTs Iterval history: better yet still highly anxious, remains tachycardic and blood pressure very high, was transfered out of ICU yesterday after overnigt admissoion for Precedex Review of Systems anxious no seizures Physical Exam Vital Signs: Vital Signs: Last Vital Signs Temp 98.7 F 02/07/22 07:30 Pulse 130 H 02/07/22 07:30 Resp 20 02/07/22 07:30 BP 187/85 H 02/07/22 07:30 Pulse Ox 96 02/07/22 07:30 O2 Del Method 02/07/22 07:30 BMI result Body Mass Index 25.7 Const: Other: General: AO X 3, no acute distress Resp: CTA bilateral CVS: S1,S2,RRR, tach GI: +BS, NT, no distention Skin: No rash Neuro: motor grossly intact Psych: very anxious, cooperative Objective Data Active Medications Clonidine HCl (Clonidine Hcl 0.2 Mg Tablet) 0.2 mg PO TID COUNT INCLUDES THE [facility]; Protocol Last Admin: 02/07/22 08:52 Dose: 0.2 mg Documented By: CRISSY Folic Acid (Folic Acid 1 Mg Tablet) 1 mg PO DAILY COUNT INCLUDES THE [facility] Stop: 02/08/22 09:01 Last Admin: 02/07/22 08:53 Dose: 1 mg Documented By: CRISSY Gabapentin (Gabapentin 300 Mg Capsule) 300 mg PO TID COUNT INCLUDES THE [facility] Last Admin: 02/07/22 08:52 Dose: 300 mg Documented By: CRISSY Hydralazine HCl (Hydralazine Hcl 20 Mg/Ml Vial) 10 mg IVPUSH Q4H PRN; Protocol PRN Reason: BP>160/90 Last Admin: 02/07/22 06:12 Dose: 10 mg Documented By: MICHAEL Comments: Kyle Guevara give now for hypertension, BP 182/80, HR 115 Hydroxyzine HCl (Hydroxyzine Hcl 25 Mg Tablet) 25 mg PO Q6H PRN PRN Reason: Anxiety Last Admin: 02/06/22 17:50 Dose: 25 mg Documented By: ROB Lactated Ringer's (Lr) 1,000 mls @ 150 mls/hr IVCONT .Q6H40M COUNT INCLUDES THE [facility] Last Admin: 02/07/22 03:01 Dose: 150 mls/hr Documented By: ADAN Lisinopril (Lisinopril 40 Mg Tablet) 40 mg PO DAILY COUNT INCLUDES THE [facility]; Protocol Last Admin: 02/07/22 08:52 Dose: 40 mg Documented By: CRISSY Melatonin (Melatonin 3 Mg Tablet) 6 mg PO BEDTIME PRN PRN Reason: Insomnia Morphine Sulfate (Morphine Sulfate 4 Mg/Ml Cartridge) 2 mg IVPUSH Q4H PRN; Protocol PRN Reason: Pain, Severe (Pain Scale 7-10) Ondansetron HCl (Ondansetron Hcl 4 Mg/2 Ml Vial) 4 mg IVPUSH Q8H PRN PRN Reason: Nausea and Vomiting Last Admin: 02/06/22 11:11 Dose: 4 mg Documented By: ROB Pharmacy Consult (Consult Rx Etoh Phenob Po Dose) 1 each MISCELLANE ONCE PRN; Protocol PRN Reason: Consult order Pharmacy Consult (Consult Rx Etoh Phenob Po Dose) 1 each MISCELLANE ONCE PRN; Protocol PRN Reason: Consult order Phenobarbital (Phenobarbital 30 Mg Tablet) 60 mg PO BID COUNT INCLUDES THE [facility] Stop: 02/08/22 09:01 Last Admin: 02/07/22 08:52 Dose: 60 mg Documented By: CRISSY Phenobarbital (Phenobarbital 30 Mg Tablet) 30 mg PO BID COUNT INCLUDES THE [facility] Stop: 02/10/22 09:01 Phenobarbital (Phenobarbital 30 Mg Tablet) 30 mg PO DAILY COUNT INCLUDES THE [facility] Stop: 02/12/22 09:01 Sodium Chloride (0.9 % Sodium Chloride Flush 3 Ml Syringe) [facility] Last Admin: 02/07/22 08:53 Dose: Not Given Documented By: CRISSY Non-Admin Reason: IV Running Thiamine HCl (Thiamine Hcl 100 Mg Tablet) 300 mg PO DAILY COUNT INCLUDES THE [facility] Last Admin: 02/07/22 08:53 Dose: 300 mg Documented By: CRISSY Verapamil HCl (Verapamil Hcl Sr 180 Mg Tablet.Er) 180 mg PO DAILY COUNT INCLUDES THE [facility]; Protocol Last Admin: 02/07/22 08:52 Dose: 180 mg Documented By: CRISSY Labs CBC & Chem 7: 02/07/22 05:46 02/07/22 07:33 Labs: Laboratory Results - last 24 hr 02/07/22 02/07/22 05:46 07:33 MCV 83.4 MCH 27.2 MCHC 32.6 RDW 14.6 Plt Count 201 MPV 12.6 H Immature Gran % (Auto) 0.4 Neut % (Auto) 73.3 H Lymph % (Auto) 16.6 L [place] % (Auto) 8.0 Eos % (Auto) 1.1 Baso % (Auto) 0.6 Lymph # (Auto) 1.3 [place] # (Auto) 0.6 Eos # (Auto) 0.1 Baso # (Auto) 0.1 Abs Immat Gran (auto) 0.03 Absolute Neuts (auto) 5.9 Absolute Nucleated RBC 0.000 Nucleated RBC % (auto) 0.0 Anion Gap 20 Estim Creat Clear Calc 169.5 Estimated GFR > 60 Random Glucose 90 Calcium 8.9 D Phosphorus 1.5 L Magnesium 1.8 Microbiology Microbiology Results: Microbiology 02/05/22 11:26 Blood Culture - Final Blood - Venous Streptococcus viridans group 02/05/22 09:22 Blood Culture - Preliminary Blood - Venous No growth after 24 hours. Assessment and Plan (1) Alcohol withdrawal: Status: Acute (2) Delirium tremens: Status: Acute (3) Uncontrolled hypertension: Status: Acute (4) Hypertensive crisis: Status: Acute Plan 36/m with anxiety desoreder, HTN, alcohol dependency here with alcohol intoxication and now alcohol withdrawal, DTs that required ICU admission for Precedex 1/Alcohol intoxication s/p Precedex in ICU remains very anxious, tachycardia, but lucid 2/Alcohol withdrawal with severe psychomotor agitations -Phenobarbital a -Folic acid and thiamine supplement -Toxic effect? of alcohol discussed with him--He is essentially drinking himself to -CARE team eval before discharge and to offer him resources 2/Lactic acidosis with anion gap--suspect related to alcohol. has trended down -lactic acid is trending down -Needs aggresive hydration -continue trending lactic acid and BMP 3/ Severe Anxiety desorder--Psych consult 4/ HTN uncontrolled, increase clonidine to 0.2 tid, continue VERapamine, increase Lisinopril to 40, PRN hydralazine, metoprolol as next line, and if not controlled still Nephro or cardiology consult. Lovenox for DVT prophylaxis Quality Stroke Does the patient have a stroke diagnosis?: No VTE Prior VTE?: No VTE Risk Level:: Medical - low VTE Device Contraindication: Treatment Not Indicated VTE Drug Contraindication: Treatment Not Indicated
--- NOTE | 2022-02-07 14:44 | PM.PSYCN ---
History of Present Illness Date of Service: 02/07/2022 Chief Complaint: alcohol withdrawal, lactic acidosis Reason for Consult: Anxiety Requesting physician: Rangel Dewey Discussed with referring provider: Yes Sources of Information: patient interviewed and chart reviewed HPI Narrative: Late entry. Consult performed on 02/07/2022 36 y/o male with history of HTN, anxiety, HLD, alcohol dependency? bought to ED by police under section 12 for alcohol intoxication and erratic behavior . 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 large amount? of alcohol when he does drink. Additionally he states that he has been more anxious althought he denies thought of self harm. He has been having intractable nausea and vomitting ine ED without abdominal pain. He states that he last drank yesterday yet his alcohol level when he came in was 302. Further lab work. Lactic acid of 10 and has come down to 6, there are no sings of symptoms of sepsis or acute infection.? CT of abdomen showed enlarged fatty liver.? He has been given phenobarbital for alcohol withdrawal Patient seen. He reports he has been struggling with anxiety for years. It has been severe. He reports excessive drinking. Patient had a difficult time giving accurate account of symptoms as he was restless and had flight of ideas. He had a hard time concentrating and maintaining a linear stream of thought. He denied any AVH hallucinations, suicidal ideation. He needed to look at the board to orient himself to date. [place] [facility] [place] Past Psychiatric History: severe anxiety controlled since 2013 with clonidine Rx'ed by his PCP. brief trial of psychotherapy, which he found unhelpful. no SA, SIB, h/o hosps, Tx other than as described above. Medical Evaluation Reviewed: Yes [facility] Medical History Anxiety Fear of flying Gastritis HTN (hypertension) Palpitation Surgical History Pyogenic granuloma Family History: extensive FH of anxiety. Social History: works in a [employer], lives with his parents. Diagnostics Vital Signs (24Hr): Vital Signs - 24 hr 02/07/22 15:55 02/07/22 19:05 02/07/22 20:50 Temperature 100.2 F 100.5 F H 98.8 F Pulse Rate 108 H 103 H 119 H Respiratory Rate 20 20 Blood Pressure 178/90 H 138/80 168/86 H Pulse Oximetry 97 97 Oxygen Delivery Method Room Air Room Air 02/07/22 22:01 02/07/22 23:52 02/08/22 03:07 Temperature 97.4 F 97.6 F Pulse Rate 110 H 104 H 103 H Respiratory Rate 18 18 Blood Pressure 138/74 129/65 145/87 H Pulse Oximetry 97 96 Oxygen Delivery Method Room Air Room Air 02/08/22 07:59 02/08/22 11:57 Temperature 97.9 F 98.8 F Pulse Rate 100 100 Respiratory Rate 18 18 Blood Pressure 142/90 H 140/89 H Pulse Oximetry 98 98 Oxygen Delivery Method Room Air Room Air BMI result Body Mass Index 25.7 Labs Results: 02/07/22 05:46 02/07/22 07:33 Labs: Laboratory Results - last 48 hr 02/07/22 02/07/22 05:46 07:33 WBC 8.0 RBC 4.82 Hgb 13.1 L D Hct 40.2 L D MCV 83.4 MCH 27.2 MCHC 32.6 RDW 14.6 Plt Count 201 MPV 12.6 H Immature Gran % (Auto) 0.4 Neut % (Auto) 73.3 H Lymph % (Auto) 16.6 L [place] % (Auto) 8.0 Eos % (Auto) 1.1 Baso % (Auto) 0.6 Lymph # (Auto) 1.3 [place] # (Auto) 0.6 Eos # (Auto) 0.1 Baso # (Auto) 0.1 Abs Immat Gran (auto) 0.03 Absolute Neuts (auto) 5.9 Absolute Nucleated RBC 0.000 Nucleated RBC % (auto) 0.0 Sodium 138 Potassium 3.3 Chloride 105 Carbon Dioxide 16 L Anion Gap 20 BUN 2 L Creatinine 0.72 Estim Creat Clear Calc 169.5 Estimated GFR > 60 Random Glucose 90 Calcium 8.9 D Phosphorus 1.5 L Magnesium 1.8 Imaging Radiology Impressions: ITS Impressions Abdomen/Pelvis CT 02/05/22 12:40 IMPRESSION: Enlarged fatty liver. No other significant abnormality is seen. Fleischner guidelines were followed. Mental Status Exam Mental Status Exam Patient Appearance: Disheveled and Perspiring Patient Orientation: Person and Place Level of Consciousness: Awake and Restless Patient Behavior: Hyperactive, Restless, Anxious, Distractible and Confused Mood Description: Anxious and Apprehensive Affect Description: Anxious and Apprehensive Patient Cognition Impaired: Yes Ability to Follow Directions: Fair Speech Pattern: Perseverating, Rambling and Excessive Hallucinations: None Delusions: Not Present Thought Process: Distracted Thought Content: positive for Circumstantial, positive for Perseveration and positive for Tangential Abnormal Motor Activity Signs and Symptoms: Hyperactivity and Restlessness Judgement: Poor Medications Medications Current Medications Calcium Acetate (Calcium Acetate 667 Mg Capsule) 1,334 mg PO TIDWM [facility] Stop: 02/11/22 17:01 Last Admin: 02/08/22 12:00 Dose: 1,334 mg Clonidine HCl (Clonidine Hcl 0.2 Mg Tablet) 0.2 mg PO TID [facility]; Protocol Last Admin: 02/08/22 08:16 Dose: 0.2 mg Gabapentin (Gabapentin 300 Mg Capsule) 300 mg PO TID [facility] Last Admin: 02/08/22 08:17 Dose: 300 mg Hydralazine HCl (Hydralazine Hcl 20 Mg/Ml Vial) 10 mg IVPUSH Q4H PRN; Protocol PRN Reason: BP>160/90 Last Admin: 02/07/22 16:00 Dose: 10 mg Hydroxyzine HCl (Hydroxyzine Hcl 25 Mg Tablet) 25 mg PO Q6H PRN PRN Reason: Anxiety Last Admin: 02/06/22 17:50 Dose: 25 mg Lisinopril (Lisinopril 40 Mg Tablet) 40 mg PO DAILY [facility]; Protocol Last Admin: 02/08/22 08:16 Dose: 40 mg Melatonin (Melatonin 3 Mg Tablet) 6 mg PO BEDTIME PRN PRN Reason: Insomnia Morphine Sulfate (Morphine Sulfate 4 Mg/Ml Cartridge) 2 mg IVPUSH Q4H PRN; Protocol PRN Reason: Pain, Severe (Pain Scale 7-10) Ondansetron HCl (Ondansetron Hcl 4 Mg/2 Ml Vial) 4 mg IVPUSH Q8H PRN PRN Reason: Nausea and Vomiting Last Admin: 02/06/22 11:11 Dose: 4 mg Pharmacy Consult (Consult Rx Etoh Phenob Po Dose) 1 each MISCELLANE ONCE PRN; Protocol PRN Reason: Consult order Pharmacy Consult (Consult Rx Etoh Phenob Po Dose) 1 each MISCELLANE ONCE PRN; Protocol PRN Reason: Consult order Phenobarbital (Phenobarbital 30 Mg Tablet) 30 mg PO BID [facility] Stop: 02/10/22 09:01 Phenobarbital (Phenobarbital 30 Mg Tablet) 30 mg PO DAILY [facility] Stop: 02/12/22 09:01 Sodium Chloride (0.9 % Sodium Chloride Flush 3 Ml Syringe) 3 ml IVFLUSH QSHIFT [facility] Last Admin: 02/08/22 08:18 Dose: 3 ml Thiamine HCl (Thiamine Hcl 100 Mg Tablet) 300 mg PO DAILY [facility] Last Admin: 02/08/22 08:15 Dose: 300 mg Verapamil HCl (Verapamil Hcl Sr 180 Mg Tablet.Er) 180 mg PO DAILY [facility]; Protocol Last Admin: 02/08/22 08:17 Dose: 180 mg Allergies Allergies Allergy/AdvReac Type Severity Reaction Status Date / Time Tree nuts Allergy Unknown Unknown Verified 12/18/21 08:58 Assessment & Plan Assessment & Plan (1) Alcohol withdrawal: Status: Acute Code(s): F10.239 - Alcohol dependence with withdrawal, unspecified (2) Alcohol intoxication: Status: Acute Code(s): F10.929 - Alcohol use, unspecified with intoxication, unspecified (3) Delirium tremens: Status: Acute Code(s): F10.231 - Alcohol dependence with withdrawal delirium Plan - Patient seems to be in acute alcohol withdrawal and anxiety seems to be mainly related to same at this time. One suggestion may be to try increasing GBP to 600 mg TID as tolerated. - Social work consultation for ETOH dependence treatment resources when medically stable. I spent minutes with the patient and/or on the patient floor today, greater than?50% of which was spent counseling/coordinating care.
[2022-02-07] MEDS: 0.9 % Sodium Chloride Flush 3 ML SYRINGE IVFLUSH ×2 (16:01→20:54)
[2022-02-08 03:07] VITALS: BP 145/87; PULSE 103; RESP 18; TEMP 36.4; O2SAT 96
[2022-02-08 07:59] VITALS: BP 142/90; PULSE 100; RESP 18; TEMP 36.6; O2SAT 98
[2022-02-08] MEDS: Thiamine HCL 100 MG TABLET 300 MG PO (08:15)
[2022-02-08] MEDS: Calcium Acetate 667 MG CAPSULE 1334 MG PO ×3 (08:16→16:29)
[2022-02-08] MEDS: Folic Acid 1 MG TABLET PO (08:16)
[2022-02-08] MEDS: cloNIDine HCL 0.2 MG TABLET PO ×3 (08:16→20:32)
[2022-02-08] MEDS: PHENobarbitaL 30 MG TABLET 60 MG PO (08:16)
[2022-02-08] MEDS: lisinopriL 40 MG TABLET PO (08:16)
[2022-02-08] MEDS: Gabapentin 300 MG CAPSULE PO ×3 (08:17→20:32)
[2022-02-08] MEDS: VerapamiL HCL SR 180 MG TABLET.ER PO (08:17)
[2022-02-08] MEDS: 0.9 % Sodium Chloride Flush 3 ML SYRINGE IVFLUSH ×3 (08:18→20:32)
--- NOTE | 2022-02-08 09:54 | P.PNIM_ITS ---
Subjective Subjective Date of Service: 02/08/22 Interval History: F/u on alcohol withdrawal/DTs Iterval history:He is doing much better, much less anxious, BP is down markedly, tachycardia resolved. Review of Systems anxious no seizures no sob Physical Exam Vital Signs: Vital Signs: Last Vital Signs Temp 97.9 F 02/08/22 07:59 Pulse 100 02/08/22 07:59 Resp 18 02/08/22 07:59 BP 142/90 H 02/08/22 07:59 Pulse Ox 98 02/08/22 07:59 O2 Del Method 02/08/22 07:59 BMI result Body Mass Index 25.7 Const: Other: General: AO X 3, no acute distress Resp: CTA bilateral CVS: S1,S2,RRR, tach GI: +BS, NT, no distention Skin: No rash Neuro: motor grossly intact Psych: very anxious, cooperative Objective Data Active Medications Calcium Acetate (Calcium Acetate 667 Mg Capsule) 1,334 mg PO TIDWM [facility] Stop: 02/11/22 17:01 Last Admin: 02/08/22 08:16 Dose: 1,334 mg Documented By: RCISSY Clonidine HCl (Clonidine Hcl 0.2 Mg Tablet) 0.2 mg PO TID [facility]; Protocol Last Admin: 02/08/22 08:16 Dose: 0.2 mg Documented By: CRISSY Gabapentin (Gabapentin 300 Mg Capsule) 300 mg PO TID [facility] Last Admin: 02/08/22 08:17 Dose: 300 mg Documented By: CRISSY Hydralazine HCl (Hydralazine Hcl 20 Mg/Ml Vial) 10 mg IVPUSH Q4H PRN; Protocol PRN Reason: BP>160/90 Last Admin: 02/07/22 16:00 Dose: 10 mg Documented By: CRISSY Hydroxyzine HCl (Hydroxyzine Hcl 25 Mg Tablet) 25 mg PO Q6H PRN PRN Reason: Anxiety Last Admin: 02/06/22 17:50 Dose: 25 mg Documented By: ROB Lisinopril (Lisinopril 40 Mg Tablet) 40 mg PO DAILY [facility]; Protocol Last Admin: 02/08/22 08:16 Dose: 40 mg Documented By: CRISSY Melatonin (Melatonin 3 Mg Tablet) 6 mg PO BEDTIME PRN PRN Reason: Insomnia Morphine Sulfate (Morphine Sulfate 4 Mg/Ml Cartridge) 2 mg IVPUSH Q4H PRN; Protocol PRN Reason: Pain, Severe (Pain Scale 7-10) Ondansetron HCl (Ondansetron Hcl 4 Mg/2 Ml Vial) 4 mg IVPUSH Q8H PRN PRN Reason: Nausea and Vomiting Last Admin: 02/06/22 11:11 Dose: 4 mg Documented By: ROB Pharmacy Consult (Consult Rx Etoh Phenob Po Dose) 1 each MISCELLANE ONCE PRN; Protocol PRN Reason: Consult order Pharmacy Consult (Consult Rx Etoh Phenob Po Dose) 1 each MISCELLANE ONCE PRN; Protocol PRN Reason: Consult order Phenobarbital (Phenobarbital 30 Mg Tablet) 30 mg PO BID [facility] Stop: 02/10/22 09:01 Phenobarbital (Phenobarbital 30 Mg Tablet) 30 mg PO DAILY [facility] Stop: 02/12/22 09:01 Sodium Chloride (0.9 % Sodium Chloride Flush 3 Ml Syringe) 3 ml IVFLUSH QSHIFT [facility] Last Admin: 02/08/22 08:18 Dose: 3 ml Documented By: CRISSY Thiamine HCl (Thiamine Hcl 100 Mg Tablet) 300 mg PO DAILY [facility] Last Admin: 02/08/22 08:15 Dose: 300 mg Documented By: CRISSY Verapamil HCl (Verapamil Hcl Sr 180 Mg Tablet.Er) 180 mg PO DAILY [facility]; Protocol Last Admin: 02/08/22 08:17 Dose: 180 mg Documented By: CRISSY Labs CBC & Chem 7: 02/07/22 05:46 02/07/22 07:33 Microbiology Microbiology Results: Microbiology 02/05/22 09:22 Blood Culture - Preliminary Blood - Venous No growth after 48 hours. 02/05/22 11:26 Blood Culture - Final Blood - Venous Streptococcus viridans group Assessment and Plan (1) Alcohol withdrawal: Status: Acute (2) Delirium tremens: Status: Acute (3) Uncontrolled hypertension: Status: Acute (4) Hypertensive crisis: Status: Acute Plan 36/m with anxiety desoreder, HTN, alcohol dependency here with alcohol intoxication and now alcohol withdrawal, DTs that required ICU admission for Precedex 1/Alcohol intoxication s/p Precedex in ICU, much less anxious, no tachy 2/Severe Alcohol withdrawal, much improved psychomotor agitation -continue Phenobarbital -Folic acid and thiamine supplement - constant reminding of Toxic effect? of alcohol, he is willing to do the work and get help -CARE team eval before discharge and to offer him resources 2/Lactic acidosis with anion gap--suspect related to alcohol. has trended down 3/ Severe Anxiety desorder--Psych consult 4/ HTN much better control with med adjustment clonidine to 0.2 tid, continue VERapamine 180, increase Lisinopril to 40, PRN hydralazine, metoprolol as next line, if needed Lovenox for DVT prophylaxis Quality Stroke Does the patient have a stroke diagnosis?: No VTE Prior VTE?: No VTE Risk Level:: Medical - low VTE Device Contraindication: Treatment Not Indicated VTE Drug Contraindication: Treatment Not Indicated
[2022-02-08 11:57] VITALS: BP 140/89; PULSE 100; RESP 18; TEMP 37.1; O2SAT 98
--- NOTE | 2022-02-08 14:43 | HO.PSYCHPN ---
Subjective Subjective Date of Service: 02/07/22 Reason For Visit: alcohol withdrawal, lactic acidosis Diagnostics Vital Signs (24Hr): Vital Signs - 24 hr 02/07/22 15:55 02/07/22 19:05 02/07/22 20:50 Temperature 100.2 F 100.5 F H 98.8 F Pulse Rate 108 H 103 H 119 H Respiratory Rate 20 20 Blood Pressure 178/90 H 138/80 168/86 H Pulse Oximetry 97 97 Oxygen Delivery Method Room Air Room Air 02/07/22 22:01 02/07/22 23:52 02/08/22 03:07 Temperature 97.4 F 97.6 F Pulse Rate 110 H 104 H 103 H Respiratory Rate 18 18 Blood Pressure 138/74 129/65 145/87 H Pulse Oximetry 97 96 Oxygen Delivery Method Room Air Room Air 02/08/22 07:59 02/08/22 11:57 Temperature 97.9 F 98.8 F Pulse Rate 100 100 Respiratory Rate 18 18 Blood Pressure 142/90 H 140/89 H Pulse Oximetry 98 98 Oxygen Delivery Method Room Air Room Air BMI result Body Mass Index 25.7 Labs Results: 02/07/22 05:46 02/07/22 07:33 Labs: Laboratory Results - last 48 hr 02/07/22 02/07/22 05:46 07:33 WBC 8.0 RBC 4.82 Hgb 13.1 L D Hct 40.2 L D MCV 83.4 MCH 27.2 MCHC 32.6 RDW 14.6 Plt Count 201 MPV 12.6 H Immature Gran % (Auto) 0.4 Neut % (Auto) 73.3 H Lymph % (Auto) 16.6 L Rooks % (Auto) 8.0 Eos % (Auto) 1.1 Baso % (Auto) 0.6 Lymph # (Auto) 1.3 Rooks # (Auto) 0.6 Eos # (Auto) 0.1 Baso # (Auto) 0.1 Abs Immat Gran (auto) 0.03 Absolute Neuts (auto) 5.9 Absolute Nucleated RBC 0.000 Nucleated RBC % (auto) 0.0 Sodium 138 Potassium 3.3 Chloride 105 Carbon Dioxide 16 L Anion Gap 20 BUN 2 L Creatinine 0.72 Estim Creat Clear Calc 169.5 Estimated GFR > 60 Random Glucose 90 Calcium 8.9 D Phosphorus 1.5 L Magnesium 1.8 Imaging Radiology Impressions: ITS Impressions Abdomen/Pelvis CT 02/05/22 12:40 IMPRESSION: Enlarged fatty liver. No other significant abnormality is seen. Fleischner guidelines were followed. Medications Medications Current Medications Calcium Acetate (Calcium Acetate 667 Mg Capsule) 1,334 mg PO TIDWM [facility] Stop: 02/11/22 17:01 Last Admin: 02/08/22 12:00 Dose: 1,334 mg Clonidine HCl (Clonidine Hcl 0.2 Mg Tablet) 0.2 mg PO TID [facility]; Protocol Last Admin: 02/08/22 08:16 Dose: 0.2 mg Gabapentin (Gabapentin 300 Mg Capsule) 300 mg PO TID [facility] Last Admin: 02/08/22 08:17 Dose: 300 mg Hydralazine HCl (Hydralazine Hcl 20 Mg/Ml Vial) 10 mg IVPUSH Q4H PRN; Protocol PRN Reason: BP>160/90 Last Admin: 02/07/22 16:00 Dose: 10 mg Hydroxyzine HCl (Hydroxyzine Hcl 25 Mg Tablet) 25 mg PO Q6H PRN PRN Reason: Anxiety Last Admin: 02/06/22 17:50 Dose: 25 mg Lisinopril (Lisinopril 40 Mg Tablet) 40 mg PO DAILY [facility]; Protocol Last Admin: 02/08/22 08:16 Dose: 40 mg Melatonin (Melatonin 3 Mg Tablet) 6 mg PO BEDTIME PRN PRN Reason: Insomnia Morphine Sulfate (Morphine Sulfate 4 Mg/Ml Cartridge) 2 mg IVPUSH Q4H PRN; Protocol PRN Reason: Pain, Severe (Pain Scale 7-10) Ondansetron HCl (Ondansetron Hcl 4 Mg/2 Ml Vial) 4 mg IVPUSH Q8H PRN PRN Reason: Nausea and Vomiting Last Admin: 02/06/22 11:11 Dose: 4 mg Pharmacy Consult (Consult Rx Etoh Phenob Po Dose) 1 each MISCELLANE ONCE PRN; Protocol PRN Reason: Consult order Pharmacy Consult (Consult Rx Etoh Phenob Po Dose) 1 each MISCELLANE ONCE PRN; Protocol PRN Reason: Consult order Phenobarbital (Phenobarbital 30 Mg Tablet) 30 mg PO BID [facility] Stop: 02/10/22 09:01 Phenobarbital (Phenobarbital 30 Mg Tablet) 30 mg PO DAILY [facility] Stop: 02/12/22 09:01 Sodium Chloride (0.9 % Sodium Chloride Flush 3 Ml Syringe) 3 ml IVFLUSH QSHIFT [facility] Last Admin: 02/08/22 08:18 Dose: 3 ml Thiamine HCl (Thiamine Hcl 100 Mg Tablet) 300 mg PO DAILY [facility] Last Admin: 02/08/22 08:15 Dose: 300 mg Verapamil HCl (Verapamil Hcl Sr 180 Mg Tablet.Er) 180 mg PO DAILY [facility]; Protocol Last Admin: 02/08/22 08:17 Dose: 180 mg Allergies Allergies Allergy/AdvReac Type Severity Reaction Status Date / Time Tree nuts Allergy Unknown Unknown Verified 12/18/21 08:58 Assessment & Plan Assessment & Plan (1) Alcohol withdrawal: Status: Acute Code(s): F10.239 - Alcohol dependence with withdrawal, unspecified (2) Delirium tremens: Status: Acute Code(s): F10.231 - Alcohol dependence with withdrawal delirium (3) Uncontrolled hypertension: Status: Acute Code(s): I10 - Essential (primary) hypertension (4) Hypertensive crisis: Status: Acute Code(s): I16.9 - Hypertensive crisis, unspecified Plan 36/m with anxiety desoreder, HTN, alcohol dependency here with alcohol intoxication and now alcohol withdrawal, DTs that required ICU admission for Precedex 1/Alcohol intoxication s/p Precedex in ICU, much less anxious, no tachy 2/Severe Alcohol withdrawal, much improved psychomotor agitation -continue Phenobarbital -Folic acid and thiamine supplement - constant reminding of Toxic effect? of alcohol, he is willing to do the work and get help -CARE team eval before discharge and to offer him resources 2/Lactic acidosis with anion gap--suspect related to alcohol. has trended down 3/ Severe Anxiety desorder--Psych consult 4/ HTN much better control with med adjustment clonidine to 0.2 tid, continue VERapamine 180, increase Lisinopril to 40, PRN hydralazine, metoprolol as next line, if needed Lovenox for DVT prophylaxis I spent minutes with the patient and/or on the patient floor today, greater than?50% of which was spent counseling/coordinating care.
[2022-02-08 16:00] VITALS: BP 145/64; PULSE 111; RESP 18; TEMP 36.3; O2SAT 97
[2022-02-08 20:00] VITALS: BP 190/82; PULSE 100; RESP 18; TEMP 36.4; O2SAT 97
[2022-02-08] MEDS: PHENobarbitaL 30 MG TABLET PO (20:32)
[2022-02-09] VITALS (7 sets, daily range): BP systolic 160–190; BP diastolic 90–102; PULSE 91–99; RESP 16–20; TEMP 36.6–37.3; O2SAT 94–99; BMI 25.1
[2022-02-09] MEDS: hydrALAZINE HCl 20 MG/ML VIAL 10 MG IVPUSH ×2 (00:33→23:36)
[2022-02-09] MEDS: hydrOXYzine HCL 25 MG TABLET PO ×3 (00:33→21:34)
[2022-02-09] MEDS: Morphine Sulfate 4 MG/ML CARTRIDGE 2 MG IVPUSH ×3 (04:26→21:32)
[2022-02-09] MEDS: Calcium Acetate 667 MG CAPSULE 1334 MG PO ×3 (07:40→17:57)
[2022-02-09] MEDS: cloNIDine HCL 0.2 MG TABLET PO ×3 (07:40→21:23)
[2022-02-09] MEDS: VerapamiL HCL SR 180 MG TABLET.ER PO (07:40)
[2022-02-09] MEDS: Thiamine HCL 100 MG TABLET 300 MG PO (07:40)
[2022-02-09] MEDS: Gabapentin 300 MG CAPSULE PO (07:41)
[2022-02-09] MEDS: lisinopriL 40 MG TABLET PO (07:41)
[2022-02-09] MEDS: PHENobarbitaL 30 MG TABLET PO ×2 (07:41→21:23)
[2022-02-09] MEDS: 0.9 % Sodium Chloride Flush 3 ML SYRINGE IVFLUSH ×3 (07:41→21:23)
[2022-02-09 09:13] LABS: Anion Gap 13 (12-20); Blood Urea Nitrogen 6 mg/dL (9-16); Calcium 9.2 mg/dL (8.4-10.2); Carbon Dioxide 24 mmol/L (22-29); Chloride 104 mmol/L (96-108); Creatinine Clr Calc Pharmacy 171.9; Estimated Glomerular Filt Rate > 60; Glucose Random 96 mg/dL (60-115); Potassium 3.1 mmol/L (3.3-5.1); Sodium 138 mmol/L (135-145)
--- NOTE | 2022-02-09 10:01 | HO.PM.IMPN ---
Subjective Subjective Date of Service: 02/09/22 Interval History: f/u on alcohol withdrawal, accelerated HTN, anxiety Interval history: he is less anxious, no tremors, BP remains very high, Review of Systems no confusion no seizure no tremors Physical Exam Vital Signs: Vital Signs: Last Vital Signs Temp 98.6 F 02/09/22 08:00 Pulse 99 02/09/22 08:00 Resp 18 02/09/22 08:00 BP 190/98 H 02/09/22 08:00 Pulse Ox 98 02/09/22 08:00 O2 Del Method 02/09/22 08:00 BMI result Body Mass Index 25.1 Const: Other: General: AO X 3, no acute distress Resp: CTA bilateral CVS: S1,S2,RRR, tach GI: +BS, NT, no distention Skin: No rash Neuro: motor grossly intact, no tremors Psych: very anxious, cooperative Objective Data Active Medications Calcium Acetate (Calcium Acetate 667 Mg Capsule) 1,334 mg PO TIDWM [facility] Stop: 02/11/22 17:01 Last Admin: 02/09/22 07:40 Dose: 1,334 mg Documented By: MAC Clonidine HCl (Clonidine Hcl 0.2 Mg Tablet) 0.2 mg PO TID [facility]; Protocol Last Admin: 02/09/22 07:40 Dose: 0.2 mg Documented By: MAC Gabapentin (Gabapentin 300 Mg Capsule) 300 mg PO TID [facility] Last Admin: 02/09/22 07:41 Dose: 300 mg Documented By: MAC Hydralazine HCl (Hydralazine Hcl 20 Mg/Ml Vial) 10 mg IVPUSH Q4H PRN; Protocol PRN Reason: BP>160/90 Last Admin: 02/09/22 00:33 Dose: 10 mg Documented By: BETITO Hydroxyzine HCl (Hydroxyzine Hcl 25 Mg Tablet) 25 mg PO Q6H PRN PRN Reason: Anxiety Last Admin: 02/09/22 00:33 Dose: 25 mg Documented By: BETITO Lisinopril (Lisinopril 40 Mg Tablet) 40 mg PO DAILY [facility]; Protocol Last Admin: 02/09/22 07:41 Dose: 40 mg Documented By: MAC Melatonin (Melatonin 3 Mg Tablet) 6 mg PO BEDTIME PRN PRN Reason: Insomnia Morphine Sulfate (Morphine Sulfate 4 Mg/Ml Cartridge) 2 mg IVPUSH Q4H PRN; Protocol PRN Reason: Pain, Severe (Pain Scale 7-10) Last Admin: 02/09/22 04:26 Dose: 2 mg Documented By: BETITO Ondansetron HCl (Ondansetron Hcl 4 Mg/2 Ml Vial) 4 mg IVPUSH Q8H PRN PRN Reason: Nausea and Vomiting Last Admin: 02/06/22 11:11 Dose: 4 mg Documented By: ROB Pharmacy Consult (Consult Rx Etoh Phenob Po Dose) 1 each MISCELLANE ONCE PRN; Protocol PRN Reason: Consult order Pharmacy Consult (Consult Rx Etoh Phenob Po Dose) 1 each MISCELLANE ONCE PRN; Protocol PRN Reason: Consult order Phenobarbital (Phenobarbital 30 Mg Tablet) 30 mg PO BID [facility] Stop: 02/10/22 09:01 Last Admin: 02/09/22 07:41 Dose: 30 mg Documented By: MAC Phenobarbital (Phenobarbital 30 Mg Tablet) 30 mg PO DAILY [facility] Stop: 02/12/22 09:01 Sodium Chloride (0.9 % Sodium Chloride Flush 3 Ml Syringe) 3 ml IVFLUSH QSHIFT [facility] Last Admin: 02/09/22 07:41 Dose: 3 ml Documented By: MAC Thiamine HCl (Thiamine Hcl 100 Mg Tablet) 300 mg PO DAILY [facility] Last Admin: 02/09/22 07:40 Dose: 300 mg Documented By: MAC Verapamil HCl (Verapamil Hcl Sr 180 Mg Tablet.Er) 180 mg PO DAILY [facility]; Protocol Last Admin: 02/09/22 07:40 Dose: 180 mg Documented By: MAC Labs CBC & Chem 7: 02/07/22 05:46 02/09/22 08:24 Labs: Laboratory Results - last 24 hr 02/09/22 08:24 Anion Gap 13 Estim Creat Clear Calc 171.9 Estimated GFR > 60 Random Glucose 96 Calcium 9.2 Assessment and Plan (1) Alcohol withdrawal: Status: Acute (2) Delirium tremens: Status: Acute (3) Uncontrolled hypertension: Status: Acute (4) Hypertensive crisis: Status: Acute Plan 36/m with anxiety desoreder, HTN, alcohol dependency here with alcohol intoxication and now alcohol withdrawal, DTs that required ICU admission for Precedex 1/Alcohol intoxication s/p Precedex in ICU, much less anxious, no tachy 2/Severe Alcohol withdrawal, much improved psychomotor agitation -continue Phenobarbital -Folic acid and thiamine supplement - constant reminding of Toxic effect? of alcohol, he is willing to do the work and get help -CARE team eval before discharge and to offer him resources 2/Lactic acidosis with anion gap--suspect related to alcohol. has trended down 3/ Severe Anxiety desorder--Seen by Psych and recommended to incrase Gabapentin to 600 tid, BHN eval misty see if will need inpatient management, 4/ HTN were much better yesterday but high again today,..continue clonidine 0.2 tid, continue VERapamine 180, increased Lisinopril to 40, PRN hydralazine, metoprolol as next line, if needed, Nephrology consul HypOkalemia--oral replacementt Lovenox for DVT prophylaxis Quality Stroke Does the patient have a stroke diagnosis?: No VTE Prior VTE?: No VTE Risk Level:: Medical - low VTE Device Contraindication: Treatment Not Indicated VTE Drug Contraindication: Treatment Not Indicated
--- NOTE | 2022-02-09 11:19 | MHC.CM.PN ---
Per ROUNDS discussion, Patient is still withdrawing from ETOH. Home vs Care Team intervention is the goal and CM will continue to follow.
[2022-02-09] MEDS: ondansetron HCL 4 MG/2 ML VIAL IVPUSH (12:16)
[2022-02-09] MEDS: Gabapentin 300 MG CAPSULE 600 MG PO ×2 (14:34→21:23)
[2022-02-09] MEDS: Melatonin 3 MG TABLET 6 MG PO (21:33)
[2022-02-10] VITALS (9 sets, daily range): BP systolic 130–198; BP diastolic 84–110; PULSE 96–120; RESP 16–20; TEMP 36.1–37.1; O2SAT 93–100; BMI 25.0
[2022-02-10] MEDS: LORazepam 2 MG/ML VIAL 1 MG IVPUSH (01:35)
--- NOTE | 2022-02-10 08:18 | HO.PM.IMPN ---
Subjective Subjective Date of Service: 02/10/22 Interval History: uncontrolled hypertension, severe anxiety, alcohol withdrawal Review of Systems still has mild tremors, feels sweaty intermittent. Denies any chest pain or shortness of breath or abdominal pain or nausea or vomiting or headache. Physical Exam Vital Signs: Vital Signs: Last Vital Signs Temp 98.0 F 02/10/22 08:00 Pulse 112 H 02/10/22 08:00 Resp 20 02/10/22 08:00 BP 158/100 H 02/10/22 08:00 Pulse Ox 94 02/10/22 08:00 O2 Del Method 02/10/22 08:00 BMI result Body Mass Index 25.0 General: AO X 3, no acute distress Resp:? CTA bilateral CVS: S1,S2,RRR, tachycardia GI: +BS, NT, no distention Skin: No rash Neuro:? motor grossly intact, no tremors Psych: very anxious, cooperative Objective Data Active Medications Calcium Acetate (Calcium Acetate 667 Mg Capsule) 1,334 mg PO TIDWM [facility] Stop: 02/11/22 17:01 Last Admin: 02/09/22 17:57 Dose: 1,334 mg Documented By: MAC Clonidine HCl (Clonidine Hcl 0.2 Mg Tablet) 0.2 mg PO TID [facility]; Protocol Last Admin: 02/09/22 21:23 Dose: 0.2 mg Documented By: CHELSEA Gabapentin (Gabapentin 300 Mg Capsule) 600 mg PO TID [facility] Last Admin: 02/09/22 21:23 Dose: 600 mg Documented By: CHELSEA Hydralazine HCl (Hydralazine Hcl 20 Mg/Ml Vial) 10 mg IVPUSH Q4H PRN; Protocol PRN Reason: BP>160/90 Last Admin: 02/09/22 23:36 Dose: 10 mg Documented By: ADAN Hydroxyzine HCl (Hydroxyzine Hcl 25 Mg Tablet) 25 mg PO Q6H PRN PRN Reason: Anxiety Last Admin: 02/09/22 21:34 Dose: 25 mg Documented By: CHELSEA Lisinopril (Lisinopril 40 Mg Tablet) 40 mg PO DAILY [facility]; Protocol Last Admin: 02/09/22 07:41 Dose: 40 mg Documented By: MAC Melatonin (Melatonin 3 Mg Tablet) 6 mg PO BEDTIME PRN PRN Reason: Insomnia Last Admin: 02/09/22 21:33 Dose: 6 mg Documented By: CHELSEA Morphine Sulfate (Morphine Sulfate 2 Mg/Ml Cartridge) 2 mg IVPUSH Q4H PRN; Protocol PRN Reason: Pain, Severe (Pain Scale 7-10) Ondansetron HCl (Ondansetron Hcl 4 Mg/2 Ml Vial) 4 mg IVPUSH Q8H PRN PRN Reason: Nausea and Vomiting Last Admin: 02/09/22 12:16 Dose: 4 mg Documented By: MAC Pharmacy Consult (Consult Rx Etoh Phenob Po Dose) 1 each MISCELLANE ONCE PRN; Protocol PRN Reason: Consult order Pharmacy Consult (Consult Rx Etoh Phenob Po Dose) 1 each MISCELLANE ONCE PRN; Protocol PRN Reason: Consult order Phenobarbital (Phenobarbital 30 Mg Tablet) 30 mg PO BID [facility] Stop: 02/10/22 09:01 Last Admin: 02/09/22 21:23 Dose: 30 mg Documented By: CHELSEA Phenobarbital (Phenobarbital 30 Mg Tablet) 30 mg PO DAILY [facility] Stop: 02/12/22 09:01 Sodium Chloride (0.9 % Sodium Chloride Flush 3 Ml Syringe) 3 ml IVFLUSH QSHIFT [facility] Last Admin: 02/09/22 21:23 Dose: 3 ml Documented By: CHELSEA Thiamine HCl (Thiamine Hcl 100 Mg Tablet) 300 mg PO DAILY [facility] Last Admin: 02/09/22 07:40 Dose: 300 mg Documented By: MAC Verapamil HCl (Verapamil Hcl Sr 180 Mg Tablet.Er) 180 mg PO DAILY [facility]; Protocol Last Admin: 02/09/22 07:40 Dose: 180 mg Documented By: MAC Labs CBC & Chem 7: 02/07/22 05:46 02/10/22 08:30 Labs: Laboratory Results - last 24 hr 02/09/22 08:24 Anion Gap 13 Estim Creat Clear Calc 171.9 Estimated GFR > 60 Random Glucose 96 Calcium 9.2 Assessment and Plan (1) Alcohol withdrawal: Status: Acute (2) Uncontrolled hypertension: Status: Acute Plan 36/m with anxiety desoreder, HTN, alcohol dependency here with alcohol intoxication and now alcohol withdrawal, DTs that required ICU admission for Precedex 1/Alcohol intoxication s/p Precedex in ICU, much less anxious, no tachy 2/Severe Alcohol withdrawal, much improved psychomotor agitation -continue Phenobarbital -Folic acid and thiamine supplement - constant reminding of Toxic effect? of alcohol, he is willing to do the work and get help -CARE team eval before discharge and to offer him resources 2/Lactic acidosis with anion gap--suspect related to alcohol. has trended down 3/ Severe Anxiety desorder--Seen by Psych and recommended to incrase? Gabapentin to 600 tid, BHN eval misty see if will need inpatient management, 4/ HTN were much better yesterday but high again today,..continue clonidine? 0.2 tid, continue VERapamine 180, increased Lisinopril? to 40, PRN hydralazine, metoprolol as next line, if needed,? Nephrology consul HypOkalemia--oral replacementt Lovenox for DVT prophylaxis Quality Stroke Does the patient have a stroke diagnosis?: No VTE Prior VTE?: No VTE Risk Level:: Medical - low VTE Device Contraindication: Treatment Not Indicated VTE Drug Contraindication: Treatment Not Indicated
--- NOTE | 2022-02-10 08:20 | PC.NURSE ---
Shift eval 7p-7a: Patient alert and oriented. C/o anxiety - ciwa at 8pm 5, went down to 1 by 4am. Medicated w/ PRN atarax @ melatonin & morphine (for back pain) @ approx 2130 (see oct for times). Patient medicated for pain with good effect - reports relief and finds k-pad to work well for pain. BP elevated - medicated w/ PRN hydralazine @ 2336 - bp came down to 159 systolic for 4am vitals. Patient c/o continued anxiety - Dr Benoit made aware - ordered 1 time dose of ativan 1mg IVP - given @ 0135. Medicated w/ good effect for anxiety - patient able to sleep after medicated w/ ativan - ciwa came down to 1. Patient up ad brandy - steady gait. Patient cooperative w/ care and very talkative.
[2022-02-10 09:38] LABS: Magnesium 1.8 mg/dL (1.6-2.6); Potassium 3.5 mmol/L (3.3-5.1)
[2022-02-10] MEDS: VerapamiL HCL SR 180 MG TABLET.ER PO (10:10)
[2022-02-10] MEDS: Thiamine HCL 100 MG TABLET 300 MG PO (10:11)
[2022-02-10] MEDS: lisinopriL 40 MG TABLET PO (10:11)
[2022-02-10] MEDS: Gabapentin 300 MG CAPSULE 600 MG PO ×3 (10:12→22:00)
[2022-02-10] MEDS: cloNIDine HCL 0.2 MG TABLET PO ×3 (10:13→22:00)
[2022-02-10] MEDS: Calcium Acetate 667 MG CAPSULE 1334 MG PO ×3 (10:14→16:19)
[2022-02-10] MEDS: 0.9 % Sodium Chloride Flush 3 ML SYRINGE IVFLUSH ×2 (10:14→15:39)
[2022-02-10] MEDS: PHENobarbitaL 30 MG TABLET PO (10:17)
--- NOTE | 2022-02-10 10:21 | PM.PNNEP ---
Subjective Subjective Date of Service: 02/10/22 Interval history: Events noted BP is better Anxious Physical Exam Vital Signs: Vital Signs: Last Vital Signs Temp 98.0 F 02/10/22 08:00 Pulse 112 H 02/10/22 08:00 Resp 20 02/10/22 08:00 BP 158/100 H 02/10/22 08:00 Pulse Ox 94 02/10/22 08:00 O2 Del Method 02/10/22 08:00 BMI result Body Mass Index 25.0 Const: Other: General: AO X 3, no acute distress Resp: CTA bilateral CVS: S1,S2,RRR, tach GI: +BS, NT, no distention Skin: No rash Neuro: motor grossly intact, no tremors Psych: very anxious, cooperative Objective Data Labs CBC & Chem 7: 02/07/22 05:46 02/10/22 08:30 Labs: Laboratory Results - last 24 hr 02/10/22 08:30 Potassium 3.5 Magnesium 1.8 Microbiology Microbiology Results: Microbiology 02/05/22 09:22 Blood - Venous Blood Culture - Preliminary No growth after 48 hours. 02/05/22 11:26 Blood - Venous Blood Culture - Final Streptococcus viridans group Procedures Date of Service Date of Service: 02/10/22 Assessment & Plan Assessment and plan (1) Alcohol withdrawal: Status: Acute (2) Delirium tremens: Status: Acute (3) Uncontrolled hypertension: Status: Acute (4) Hypertensive crisis: Status: Acute Plan 36/m with anxiety desoreder, HTN, alcohol dependency here with alcohol intoxication and now alcohol withdrawal, DTs that required ICU admission for Precedex Severe Anxiety disorder-- HTN BP is better today Can increase Verapamil to 240 mg due to tachycardia HypOkalemia--oral replacement as needed Check Plasma Renin and Aldosterone ( Ordered) Time Spent With Patient Time: Total time spent is greater than 50% in coordination of care (as documented) at patient's floor/unit and/or counseling patient: Progress Note: Quality Stroke Does the patient have a stroke diagnosis?: No
[2022-02-10] MEDS: Morphine Sulfate 2 MG/ML CARTRIDGE IVPUSH ×2 (10:58→22:06)
--- NOTE | 2022-02-10 11:26 | CONS_ITS ---
DATE OF SERVICE: 02/09/2022 REASON FOR CONSULTATION: I was called to see this patient today to assist with management of uncontrolled hypertension. HISTORY OF PRESENT ILLNESS: To summarize, Brandon is a 36-year-old man with history of anxiety, hypertension and alcohol dependence, comes in because of alcohol intoxication and erratic behavior. At present, his blood pressure is significantly elevated and he is on multiple medications. This consultation has been requested for management of hypertension. At home, he was on clonidine and verapamil along with lisinopril. There has been an issue with compliance. He admits to drinking alcohol excessively. PAST MEDICAL PROBLEMS: Include hypertension, anxiety, palpitations. FAMILY HISTORY: Father has atrial fibrillation, CHF, cardiovascular disease. Mom had stroke. Surgical history not significant for this admission. SOCIAL HISTORY: Lives with his family. He does not use tobacco. He consumes alcohol almost every day. Denies any illicit drug abuse. ALLERGIES: NO KNOWN DRUG ALLERGIES. MEDICATIONS: At home include clonidine 0.1 t.i.d., gabapentin, lorazepam. REVIEW OF SYSTEMS: No headache, nausea, or vomiting. No abdominal pain or constipation. No palpitation. No fever. No rash. All other systems are reviewed and negative. PHYSICAL EXAMINATION: GENERAL: Brandon appears comfortable, not in distress. NECK: Supple. No JVD. Mucosa moist. LUNGS: Air entry equal. No rales heard. HEART: S1, S2 heard. No gallop. No rub. ABDOMEN: Soft, nontender. EXTREMITIES: No edema. NEUROLOGIC: No focal neurologic deficits. VITAL SIGNS: Blood pressure 190/98, pulse of 99 per minute. LABORATORY DATA: Sodium 130, potassium 3.2, CO2 24, BUN 6, creatinine 0.7. Hemoglobin 13.1. Urinalysis on admission showed specific gravity more than 1.020. IMPRESSIONS: This is a 36-year-old man with severe alcohol abuse and has hypertension. Brandon could probably have rebound hypertension from clonidine. However, excess alcohol intake could be playing a role as well. Other secondary causes should be ruled out. At present, he has not had any significant alkalosis, but he did have mild hypokalemia. Therefore, it is worth checking a plasma aldosterone and plasma renin activity to rule out hyperaldosteronism. As for management, I agree with current medications. Keep him on low-potassium diet. Restart clonidine. I would avoid using intravenous antihypertensive agents. Can add hydralazine 25 mg p.o. q.8h hourly and increase the dose as needed. We will follow along with the team. Jorge Murray MD BPA/MODL / [id number]
[2022-02-10] MEDS: hydrALAZINE HCl 20 MG/ML VIAL 10 MG IVPUSH (12:42)
[2022-02-10] MEDS: hydrOXYzine HCL 25 MG TABLET PO ×2 (16:19→22:00)
[2022-02-10] MEDS: ALPRAZolam 0.5 MG TABLET PO (17:01)
--- NOTE | 2022-02-10 17:08 | PM.PSYCN ---
History of Present Illness Date of Service: Chief Complaint: alcohol withdrawal, lactic acidosis Reason for Consult: medication Requesting physician: Taco Baxter Discussed with referring provider: Yes Sources of Information: patient interviewed, chart reviewed and crisis/core team assessment reviewed HPI Narrative: Brandon is a 36 y/o male who carries a dx of NEMESIO, panic disorder. He has a past medical history of HTN, HLD, and alcohol dependency. He [place] [facility] [place] [address] under section 12a for alcohol intoxication and erratic behavior. He was admitted to [facility] for detox and management of alcohol withdrawal, DTs that required ICU admission for Precedex. He is currently on Phenobarbital protocol. He has had unmanaged HTN despite increase in clonidine to 0.2 mg TID, verapamil 180 mg, lisinopril 40 mg, and hydrazaline. CT of abdomen showed enlarged fatty liver. Per recent psych consult on 02/07/[address] Howard, gabapentin was increased to 600 mg TID for anxiety and withdrawal.? Psych re-consulted for medication. Per hospitalist, pt has been very anxious despite an increase in gabapentin to 600 mg TID and clonidine to 0.2 mg BID, and his blood pressure has been elevated. I evaluated the pt this evening with his father present (pt consented) and upon interview he reports ?they gave me xanax, I feel better.? Pt reports he used to take clonidine up to 0.6 mg TID, says it was ?just geni going up and up. It geni loses its effectiveness,? he then went off it but reports benefit on current dose, ?it works really good for me, it helps me with my day to day with just being chill.? Pt has obtained ativan PRN from urgent care clinics. Says Gabapentin ?helps me so much with my back,? has back pain, on PRN morphine, unsure if it helps with anxiety. He currently denies sx of alcohol withdrawal, says ?I feel great, I dont think im so much withdrawing from alcohol as im having rebound anxiety from not being drunk.? Says he wants to quit drinking, ?be a clean living sha.? States he drinks one night a week but admits to binge drinking, the next morning has worsening anxiety. Pt reports his sleep is ?awful,? doesnt feel he is getting restorative sleep, feels tired in the day. Per his dad, pt is often napping in the day, he is ?horizontal for 16 hours in the day.? Has poor sleep hygiene, will take benadryl, melatonin OTC PRN. Pt denies depression, ?I dont think I have too many depression problems.? Pt reports he has daily anxiety and panic sx, often unable to identify triggers for his anxiety. Says when he has panic sx, they come on ?all of a sudden? and ?I feel like someone is gonna hit me,? will be running around the house, sweating, ?its embarrassing.? Says he tries to hide his anxiety by self-medicating with alcohol. Pt states ?I would love to try something new? for medication management to target his sx of anxiety and panic.? Past Psychiatric History: -severe anxiety controlled since 2013 with clonidine Rx'ed by his PCP. -Past meds (prescribed by PCP): buspar in 2020 (?made me feel depressed,? blunted), clonidine up to 0.6 mg TID, ativan 1 mg QID. Paxil (?made me feel miserable, I had no emotion?). -Remote hx of OP psych services in 2009 or 2010 at [facility], denies benefit -Hx of ADHD in childhood -no SA, SIB, h/o hosps, Tx other than as described above. Medical Evaluation Reviewed: Yes [facility] Medical History Anxiety Fear of flying Gastritis HTN (hypertension) Palpitation Surgical History Pyogenic granuloma Family History: extensive FH of anxiety. Social History: works in a [employer], lives with his parents. Diagnostics Vital Signs (24Hr): Vital Signs - 24 hr 02/09/22 20:00 02/09/22 23:34 02/10/22 00:54 Temperature 98.6 F 97.9 F Pulse Rate 91 97 96 Respiratory Rate 16 18 Blood Pressure 180/102 H 172/100 H 186/109 H Pulse Oximetry 99 97 Oxygen Delivery Method Room Air Room Air 02/10/22 04:00 02/10/22 08:00 02/10/22 12:00 Temperature 98 F 98.0 F 97.8 F Pulse Rate 101 H 112 H 102 H Respiratory Rate 18 20 20 Blood Pressure 159/86 H 158/100 H 198/110 H Pulse Oximetry 96 94 93 Oxygen Delivery Method Room Air Room Air Room Air 02/10/22 13:09 02/10/22 16:00 02/10/22 16:54 Temperature 98.8 F Pulse Rate 102 H 120 H Respiratory Rate 18 Blood Pressure 198/110 H 140/94 H 140/94 H Pulse Oximetry 96 Oxygen Delivery Method Room Air BMI result Body Mass Index 25.0 Labs Results: 02/07/22 05:46 02/10/22 08:30 Labs: Laboratory Results - last 48 hr 02/09/22 02/10/22 08:24 08:30 Sodium 138 Potassium 3.1 L 3.5 Chloride 104 Carbon Dioxide 24 Anion Gap 13 BUN 6 L D Creatinine 0.71 Estim Creat Clear Calc 171.9 Estimated GFR > 60 Random Glucose 96 Calcium 9.2 Magnesium 1.8 Imaging Radiology Impressions: ITS Impressions Abdomen/Pelvis CT 02/05/22 12:40 IMPRESSION: Enlarged fatty liver. No other significant abnormality is seen. Fleischner guidelines were followed. Mental Status Exam Mental Status Exam Narrative: A&O. Long hair, in hospital attire. Poor eye contact, inattentive. No Tics or Tremors. No abnormal involuntary movements. Energetic, deflecting with humor, but overall cooperative, engaged. Non-pressured speech, spontaneous with increased rate and rhythm, normal volume and prosody. No prolonged speech latency or dysarthria. Mood is ?anxious,? affect is activated, nervous. Denies SI/SIB/HI upon inquiry. Denies A/VH or delusional thought content. Thoughts are distracted. No known cognitive or memory impairment. Insight/ Judgment fair and adequate, although may be minimizing drinking bx. Medications Medications Current Medications Calcium Acetate (Calcium Acetate 667 Mg Capsule) 1,334 mg PO TIDWM [facility] Stop: 02/11/22 17:01 Last Admin: 02/10/22 16:19 Dose: 1,334 mg Clonidine HCl (Clonidine Hcl 0.2 Mg Tablet) 0.2 mg PO TID [facility]; Protocol Last Admin: 02/10/22 15:36 Dose: 0.2 mg Gabapentin (Gabapentin 300 Mg Capsule) 600 mg PO TID [facility] Last Admin: 02/10/22 15:37 Dose: 600 mg Hydralazine HCl (Hydralazine Hcl 20 Mg/Ml Vial) 10 mg IVPUSH Q4H PRN; Protocol PRN Reason: BP>160/90 Last Admin: 02/10/22 12:42 Dose: 10 mg Hydralazine HCl (Hydralazine Hcl 25 Mg Tablet) 25 mg PO TID [facility]; Protocol Hydroxyzine HCl (Hydroxyzine Hcl 25 Mg Tablet) 25 mg PO Q6H PRN PRN Reason: Anxiety Last Admin: 02/10/22 16:19 Dose: 25 mg Lisinopril (Lisinopril 40 Mg Tablet) 40 mg PO DAILY [facility]; Protocol Last Admin: 02/10/22 10:11 Dose: 40 mg Melatonin (Melatonin 3 Mg Tablet) 6 mg PO BEDTIME PRN PRN Reason: Insomnia Last Admin: 02/09/22 21:33 Dose: 6 mg Morphine Sulfate (Morphine Sulfate 2 Mg/Ml Cartridge) 2 mg IVPUSH Q4H PRN; Protocol PRN Reason: Pain, Severe (Pain Scale 7-10) Last Admin: 02/10/22 10:58 Dose: 2 mg Ondansetron HCl (Ondansetron Hcl 4 Mg/2 Ml Vial) 4 mg IVPUSH Q8H PRN PRN Reason: Nausea and Vomiting Last Admin: 02/09/22 12:16 Dose: 4 mg Pharmacy Consult (Consult Rx Etoh Phenob Po Dose) 1 each MISCELLANE ONCE PRN; Protocol PRN Reason: Consult order Pharmacy Consult (Consult Rx Etoh Phenob Po Dose) 1 each MISCELLANE ONCE PRN; Protocol PRN Reason: Consult order Phenobarbital (Phenobarbital 30 Mg Tablet) 30 mg PO DAILY [facility] Stop: 02/12/22 09:01 Sodium Chloride (0.9 % Sodium Chloride Flush 3 Ml Syringe) 3 ml IVFLUSH QSHIFT [facility] Last Admin: 02/10/22 15:39 Dose: 3 ml Thiamine HCl (Thiamine Hcl 100 Mg Tablet) 300 mg PO DAILY [facility] Last Admin: 02/10/22 10:11 Dose: 300 mg Verapamil HCl (Verapamil Hcl Sr 240 Mg Tablet.Er) 240 mg PO DAILY [facility]; Protocol Allergies Allergies Allergy/AdvReac Type Severity Reaction Status Date / Time Tree nuts Allergy Unknown Unknown Verified 12/18/21 08:58 Assessment & Plan Assessment & Plan (1) NEMESIO (generalized anxiety disorder): Status: Acute Code(s): F41.1 - Generalized anxiety disorder (2) Panic disorder: Status: Acute Code(s): F41.0 - Panic disorder [episodic paroxysmal anxiety] Plan Brandon is a 36 y/o male who carries a dx of NEMESIO, panic disorder. He has a past medical history of HTN, HLD, and alcohol dependency. He [place] [facility] [place] police under section 12a for alcohol intoxication and erratic behavior. He was admitted to [facility] for detox and management of alcohol withdrawal, DTs that required ICU admission for Precedex. He is currently on Phenobarbital protocol. He has had unmanaged HTN despite increase in clonidine to 0.2 mg TID, verapamil 180 mg, lisinopril 40 mg, and hydrazaline. CT of abdomen showed enlarged fatty liver. Per recent psych consult on 02/07/[address] Howard, gabapentin was increased to 600 mg TID for anxiety and withdrawal.? Plan: Pt will have a CARE team eval before discharge and to offer him resources. Pt is interested in referral for OP therapy (discussed CBT) and med management. Appears to be minimizing binge drinking disorder. Recommended pt obtain sleep study in OP setting (says he has done this in the past but never got results, his father has sleep apnea). Will start seroquel 50 mg QHS for sleep and anxiety and 25 mg TID PRN for anxiety.? -Continue monitoring medically. -Consult requested for med management -Pt does not meet criteria for IPLOC, may benefit from PHP and OP services -Consult Care Team for OP referral ? I spent minutes with the patient and/or on the patient floor today, greater than?50% of which was spent counseling/coordinating care. Patient educated on: medication risk/benefits and therapeutic strategies
[2022-02-10] MEDS: Melatonin 3 MG TABLET 6 MG PO (21:59)
[2022-02-10] MEDS: QUEtiapine Fumarate 50 MG TABLET PO (21:59)
[2022-02-10] MEDS: hydrALAZINE HCl 25 MG TABLET PO (21:59)
[2022-02-11] VITALS (7 sets, daily range): BP systolic 118–189; BP diastolic 65–99; PULSE 85–102; RESP 14–20; TEMP 36.2–37.7; O2SAT 96
[2022-02-11] MEDS: 0.9 % Sodium Chloride Flush 3 ML SYRINGE IVFLUSH ×4 (00:29→22:03)
[2022-02-11] MEDS: QUEtiapine Fumarate 25 MG TABLET PO ×3 (03:13→14:44)
[2022-02-11] MEDS: hydrOXYzine HCL 25 MG TABLET PO ×3 (03:14→22:00)
[2022-02-11] MEDS: PHENobarbitaL 30 MG TABLET PO (09:50)
[2022-02-11] MEDS: cloNIDine HCL 0.2 MG TABLET PO ×3 (09:50→22:00)
[2022-02-11] MEDS: Thiamine HCL 100 MG TABLET 300 MG PO (09:50)
[2022-02-11] MEDS: Gabapentin 300 MG CAPSULE 600 MG PO ×3 (09:50→22:00)
[2022-02-11] MEDS: VerapamiL HCL SR 240 MG TABLET.ER PO (09:50)
[2022-02-11] MEDS: lisinopriL 40 MG TABLET PO (09:50)
[2022-02-11] MEDS: Calcium Acetate 667 MG CAPSULE 1334 MG PO ×3 (09:53→16:45)
--- NOTE | 2022-02-11 10:45 | P.PNNP_ITS ---
Subjective Subjective Date of Service: 02/11/22 Interval history: uncontrolled hypertension, severe anxiety, alcohol withdrawal BP better controlled Physical Exam Vital Signs: Vital Signs: Last Vital Signs Temp 97.6 F 02/11/22 08:00 Pulse 85 02/11/22 08:00 Resp 18 02/11/22 08:00 BP 133/74 02/11/22 08:00 Pulse Ox 96 02/11/22 08:00 O2 Del Method 02/11/22 08:00 BMI result Body Mass Index 25.0 Const: Other: General: AO X 3, no acute distress Resp: CTA bilateral CVS: S1,S2,RRR, tach GI: +BS, NT, no distention Skin: No rash Neuro: motor grossly intact, no tremors Psych: very anxious, cooperative Objective Data Labs CBC & Chem 7: 02/07/22 05:46 02/10/22 08:30 Microbiology Microbiology Results: Microbiology 02/05/22 09:22 Blood - Venous Blood Culture - Final No growth after 5 days. 02/05/22 11:26 Blood - Venous Blood Culture - Final Streptococcus viridans group Procedures Date of Service Date of Service: 02/11/22 Assessment & Plan Assessment and plan (1) Alcohol withdrawal: Status: Acute (2) Delirium tremens: Status: Acute (3) Uncontrolled hypertension: Status: Acute (4) Hypertensive crisis: Status: Acute Plan 36/m with anxiety disorder, HTN, alcohol dependency here with alcohol intoxication and now alcohol withdrawal, DTs that required ICU admission for Pr ecedex Severe Anxiety disorder-- HTN BP is better today Keep current meds HypOkalemia--s/ p oral replacement Await Plasma Renin and Aldosterone ( Ordered) Time Spent With Patient Time: Total time spent is greater than 50% in coordination of care (as documented) at patient's floor/unit and/or counseling patient: Progress Note: Quality Stroke Does the patient have a stroke diagnosis?: No
--- NOTE | 2022-02-11 13:07 | HO.PM.IMPN ---
Subjective Subjective Date of Service: 02/11/22 Interval History: uncontrolled htn , anxiety Review of Systems anxiety Somewhat improving ,blood pressure is getting slowly better also. denies any chest pain or shortness of breath or abdominal pain or fever chills Physical Exam Vital Signs: Vital Signs: Last Vital Signs Temp 98.3 F 02/11/22 12:00 Pulse 91 02/11/22 12:00 Resp 19 02/11/22 12:00 BP 172/87 H 02/11/22 12:00 Pulse Ox 96 02/11/22 12:00 O2 Del Method 02/11/22 12:00 BMI result Body Mass Index 25.0 General: AO X 3, no acute distress Resp: CTA bilateral CVS: S1,S2,RRR, tach GI: +BS, NT, no distention Skin: No rash Neuro: motor grossly intact, tremors Psych: very anxious, cooperative Const: Other: General: AO X 3, no acute distress Resp: CTA bilateral CVS: S1,S2,RRR, tach GI: +BS, NT, no distention Skin: No rash Neuro: motor grossly intact, no tremors Psych: very anxious, cooperative Objective Data Active Medications Calcium Acetate (Calcium Acetate 667 Mg Capsule) 1,334 mg PO TIDWM [facility] Stop: 02/11/22 17:01 Last Admin: 02/11/22 13:00 Dose: 1,334 mg Documented By: GRETCHEN Clonidine HCl (Clonidine Hcl 0.2 Mg Tablet) 0.2 mg PO TID [facility]; Protocol Last Admin: 02/11/22 09:50 Dose: 0.2 mg Documented By: GRTECHEN Gabapentin (Gabapentin 300 Mg Capsule) 600 mg PO TID [facility] Last Admin: 02/11/22 09:50 Dose: 600 mg Documented By: GRETCHEN Hydralazine HCl (Hydralazine Hcl 20 Mg/Ml Vial) 10 mg IVPUSH Q4H PRN; Protocol PRN Reason: BP>160/90 Last Admin: 02/10/22 12:42 Dose: 10 mg Documented By: RONIT Hydroxyzine HCl (Hydroxyzine Hcl 25 Mg Tablet) 25 mg PO Q6H PRN PRN Reason: Anxiety Last Admin: 02/11/22 13:01 Dose: 25 mg Documented By: GRETCHEN Lisinopril (Lisinopril 40 Mg Tablet) 40 mg PO DAILY [facility]; Protocol Last Admin: 02/11/22 09:50 Dose: 40 mg Documented By: GRETCHEN Melatonin (Melatonin 3 Mg Tablet) 6 mg PO BEDTIME PRN PRN Reason: Insomnia Last Admin: 02/10/22 21:59 Dose: 6 mg Documented By: CHELSEA Ondansetron HCl (Ondansetron Hcl 4 Mg/2 Ml Vial) 4 mg IVPUSH Q8H PRN PRN Reason: Nausea and Vomiting Last Admin: 02/09/22 12:16 Dose: 4 mg Documented By: MAC Pharmacy Consult (Consult Rx Etoh Phenob Po Dose) 1 each MISCELLANE ONCE PRN; Protocol PRN Reason: Consult order Pharmacy Consult (Consult Rx Etoh Phenob Po Dose) 1 each MISCELLANE ONCE PRN; Protocol PRN Reason: Consult order Phenobarbital (Phenobarbital 30 Mg Tablet) 30 mg PO DAILY [facility] Stop: 02/12/22 09:01 Last Admin: 02/11/22 09:50 Dose: 30 mg Documented By: GRTECHEN Quetiapine Fumarate (Quetiapine Fumarate 50 Mg Tablet) 50 mg PO BEDTIME [facility] Last Admin: 02/10/22 21:59 Dose: 50 mg Documented By: CHELSEA Quetiapine Fumarate (Quetiapine Fumarate 25 Mg Tablet) 25 mg PO TID PRN PRN Reason: anxiety Last Admin: 02/11/22 09:49 Dose: 25 mg Documented By: GRETCHEN Sodium Chloride (0.9 % Sodium Chloride Flush 3 Ml Syringe) 3 ml IVFLUSH QSHIFT [facility] Last Admin: 02/11/22 09:49 Dose: 3 ml Documented By: GRETCHEN Thiamine HCl (Thiamine Hcl 100 Mg Tablet) 300 mg PO DAILY [facility] Last Admin: 02/11/22 09:50 Dose: 300 mg Documented By: GRETCHEN Verapamil HCl (Verapamil Hcl Sr 240 Mg Tablet.Er) 240 mg PO DAILY [facility]; Protocol Last Admin: 02/11/22 09:50 Dose: 240 mg Documented By: GRETCHEN Labs CBC & Chem 7: 02/07/22 05:46 02/10/22 08:30 Microbiology Microbiology Results: Microbiology 02/05/22 09:22 Blood Culture - Final Blood - Venous No growth after 5 days. Assessment and Plan (1) Alcohol withdrawal: Status: Acute (2) Uncontrolled hypertension: Status: Acute Plan 36/m with anxiety desoreder, HTN, alcohol dependency here with alcohol intoxication and now alcohol withdrawal, DTs that required ICU admission for Precedex 1/Alcohol intoxication s/p Precedex in ICU, much less anxious, no tachy 2/Severe Alcohol withdrawal, much improved psychomotor agitation -continue Phenobarbital -Folic acid and thiamine supplement - constant reminding of Toxic effect? of alcohol, he is willing to do the work and get help -CARE team eval before discharge and to offer him resources 2/Lactic acidosis with anion gap--suspect related to alcohol. has trended down 3/ Severe Anxiety desorder--Seen by Psych and recommended to incrase? Gabapentin to 600 tid, BHN eval misty see if will need inpatient management, 4/ HTN were much better yesterday but seems improving-continue clonidine? 0.2 tid, continue VERapamine 240 , increased Lisinopril? to 40, added hydralzine d/w nephro-moniter blood pressure today if stays stable -plan for discharge on current blood pressure meds in am.l 5.HypOkalemia--oral replacementt Lovenox for DVT prophylaxis inpatient need : alcohol withdrawal, uncontrolled htn -blood pressure moniter -due to htn med adjustment. Quality Stroke Does the patient have a stroke diagnosis?: No VTE Prior VTE?: No VTE Risk Level:: Medical - low VTE Device Contraindication: Treatment Not Indicated VTE Drug Contraindication: Treatment Not Indicated
--- NOTE | 2022-02-11 14:34 | MHC.CM.PN ---
per rounds pt to be dcd plan remanins home no servceis
[2022-02-11] MEDS: hydrALAZINE HCl 20 MG/ML VIAL 10 MG IVPUSH (18:15)
[2022-02-11] MEDS: QUEtiapine Fumarate 50 MG TABLET PO (22:00)
[2022-02-11] MEDS: Melatonin 3 MG TABLET 6 MG PO (22:01)
[2022-02-12] VITALS: BP 135/74; PULSE 87; RESP 17; TEMP 35.7; O2SAT 97
[2022-02-12 03:35] VITALS: BP 118/64; PULSE 74; RESP 18; TEMP 36.2; O2SAT 97
[2022-02-12 07:33] VITALS: BP 156/84; PULSE 77; RESP 18; TEMP 36.3; O2SAT 97
[2022-02-12] MEDS: 0.9 % Sodium Chloride Flush 3 ML SYRINGE IVFLUSH (08:39)
[2022-02-12] MEDS: Thiamine HCL 100 MG TABLET 300 MG PO (08:40)
[2022-02-12] MEDS: Gabapentin 300 MG CAPSULE 600 MG PO ×2 (08:40→14:58)
[2022-02-12] MEDS: cloNIDine HCL 0.2 MG TABLET PO ×2 (08:40→14:57)
[2022-02-12] MEDS: VerapamiL HCL SR 240 MG TABLET.ER PO (08:40)
[2022-02-12] MEDS: lisinopriL 40 MG TABLET PO (08:40)
[2022-02-12] MEDS: PHENobarbitaL 30 MG TABLET PO (08:40)
[2022-02-12] MEDS: QUEtiapine Fumarate 25 MG TABLET PO (08:44)
--- NOTE | 2022-02-12 11:12 | PM.PNNEP ---
Subjective Subjective Date of Service: 02/12/22 Interval history: Events ntoed uncontrolled htn , anxiety Physical Exam Vital Signs: Vital Signs: Last Vital Signs Temp 97.4 F 02/12/22 07:33 Pulse 77 02/12/22 07:33 Resp 18 02/12/22 07:33 BP 156/84 H 02/12/22 07:33 Pulse Ox 97 02/12/22 07:33 O2 Del Method 02/12/22 07:33 BMI result Body Mass Index 25.0 Const: Other: General: AO X 3, no acute distress Resp: CTA bilateral CVS: S1,S2,RRR, tach GI: +BS, NT, no distention Skin: No rash Neuro: motor grossly intact, no tremors Psych: very anxious, cooperative Objective Data Labs CBC & Chem 7: 02/07/22 05:46 02/10/22 08:30 Microbiology Microbiology Results: Microbiology 02/05/22 09:22 Blood - Venous Blood Culture - Final No growth after 5 days. 02/05/22 11:26 Blood - Venous Blood Culture - Final Streptococcus viridans group Procedures Date of Service Date of Service: 02/12/22 Assessment & Plan Assessment and plan (1) Alcohol withdrawal: Status: Acute (2) Delirium tremens: Status: Acute (3) Uncontrolled hypertension: Status: Acute (4) Hypertensive crisis: Status: Acute Plan 36/m with anxiety disorder, HTN, alcohol dependency here with alcohol intoxication and now alcohol withdrawal, DTs that required ICU admission for Precedex Severe Anxiety disorder-- HTN BP is better Keep current meds HypOkalemia--s/ p oral replacement Await Plasma Renin and Aldosterone ( Ordered) OK to DC Needs out pt follow up- i shall arrange Time Spent With Patient Time: Total time spent is greater than 50% in coordination of care (as documented) at patient's floor/unit and/or counseling patient: Progress Note: Quality Stroke Does the patient have a stroke diagnosis?: No
[2022-02-12 11:26] VITALS: BP 170/98; PULSE 95; RESP 18; TEMP 36.9; O2SAT 97
--- NOTE | 2022-02-12 12:34 | PM.DS ---
DS: Providers Provider Date of Service: 02/12/22 Date of admission: 02/05/22 15:48 Primary care physician: KIKI Escobedo Consults: 02/05/22 05:29 [facility] [Consult to Crisis] Stat Reason for consultation: sh 02/05/22 15:54 Consult to Psychiatry Routine Consulting Provider: Psych Covering Reason for consultation: Anxiety management 02/07/22 10:41 Consult to Psychiatry Routine Consulting Provider: Psych Covering Reason for consultation: severe anxiety management Has provider been notified: No 02/09/22 10:05 Consult to Nephrology Routine Consulting Provider: Jorge Murray Reason for consultation: Difficult to control HTN Has provider been notified: No 02/12/22 09:55 Consult to Care Team Routine Comment: Reason for consultation: severe anxiety DS: Diagnosis Discharge Diagnosis (1) Alcohol withdrawal: Status: Acute (2) Delirium tremens: Status: Acute (3) Uncontrolled hypertension: Status: Acute (4) Hypertensive crisis: Status: Acute DS: Summary Hospital Course Hospital Course: 36 y/o male with history of HTN, anxiety, HLD, alcohol dependency? bought to ED by police under section 12 for alcohol intoxication and erratic behavior . 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 large amount? of alcohol when he does drink. Additionally he states that he has been more anxious althought he denies thought of self harm. He has been having intractable nausea and vomitting ine ED without abdominal pain. He states that he last drank yesterday yet his alcohol level when he came in was 302. Further lab work. Lactic acid of 10 and has come down to 6, there are no sings of symptoms of sepsis or acute infection.? CT of abdomen showed enlarged fatty liver.? He has been given phenobarbital for alcohol withdrawal. Hospital course: Patient was admitted for alcohol withdrawal, uncontrolled hypertension: Started on phenobarb protocol as well as his blood pressure medication adjusted- currently blood pressure seems to be improving. further hypertension workup And blood pressure management out patiently with Nephrology and PCP. mild elevated LFT possibly related to alcohol use, trending down, monitor LFT out patiently in 1 week. anxiety: during this hospitalization was seen by Psychiatry and care team: added Seroquel in addition to his psych medications and gabapentin adjusted: Patient is to follow up outpatient with PCP and Psychiatry/cre team. Psych also spoke to his family in detail. Care team saw the patient and seems fine to go home currently with above psych medication adjustment as well as follow-up out patiently. further management outpatient as per PCP. Above management discussed with the patient in detail length he understand and in agreement with the above plan, time spent 50 minutes and 50% time spent on counseling. Significant findings: As above. Procedures performed: None. Treatment and response: As above. Complications: None. Time Spent with Patient Time attestation: Total time spent providing and/or coordinating discharge services: Discharge coordination time: Greater than 30 minutes Quality: Safe Use of Opioids Does Pt have an Active Cancer Diagnosis on the Problem List?: No Quality: Stroke Does the patient have a stroke diagnosis?: No Physical Exam Vital Signs: Vital Signs: Last Vital Signs Temp 98.5 F 02/12/22 11:26 Pulse 95 02/12/22 11:26 Resp 18 02/12/22 11:26 BP 170/98 H 02/12/22 11:26 Pulse Ox 97 02/12/22 11:26 O2 Del Method 02/12/22 11:26 BMI result Body Mass Index 25.0 General: AO X 3, no acute distress Resp:? CTA bilateral CVS: S1,S2,RRR, tach GI: +BS, NT, no distention Skin: No rash Neuro:? motor grossly intact, no tremors Psych: more calm, cooperative DS: Data Additional Comments Additional comments: Laboratory Results - last 24 hr ? 02/09/22 ? 08:24 Anion Gap ?13 Estim Creat Clear Calc ?171.9 Estimated GFR ?> 60 Random Glucose ?96 Calcium ?9.2 CT/CT abdomen pelvis wo con IMPRESSION: Enlarged fatty liver. No other significant abnormality is seen.? ? Fleischner guidelines were followed. Discharge Plan Discharge Patient Disposition: Home, Self-Care Discharge Diagnosis: anxiety, alcohol withdrawal. Referrals: [facility] [Other] - 1 Week (Please follow up within 1-2 days ) [facility] [Other] - 1 Week CARE Team [Other] - 1 Week (For additional support with outpatient recommendation, please contact the CARE Team. This is not a 24 hour hotline and does not provide crisis support. In this event, please call [facility] crisis. ) Glogowski,Donte, LICENSED FUNERAL DIRECTOR AND EMBALMER-BC [Primary Care Provider] - 1 Week Jorge Murray MD [Physician] - 1 Week (follow up outpatient) Discharge Medications: New quetiapine 25 mg Tablet 25 mg PO TID PRN (Reason: anxiety) Qty: 10 0RF verapamil 240 mg Tablet Extended Release 240 mg PO DAILY Qty: 30 0RF Protocol: Hold for SBP/HR < HOLD for SBP < : 90 HOLD for HR < : 60 quetiapine 50 mg Tablet 50 mg PO BEDTIME Qty: 30 0RF thiamine HCl (vitamin B1) 100 mg tablet 100 mg PO DAILY Qty: 30 0RF folic acid 1 mg tablet 1 mg PO DAILY Qty: 30 0RF Continued lorazepam 0.5 mg tablet 1 tab PO BID PRN (Reason: anxiety) Changed clonidine HCl 0.1 mg tablet 2 tab PO TID Qty: 180 0RF gabapentin 300 mg capsule 600 mg PO TID Qty: 180 0RF lisinopril 20 mg tablet 40 mg PO DAILY 90 Days Qty: 60 0RF Discontinued verapamil 180 mg capsule,ext rel. pellets 24 hr 180 mg PO DAILY 90 Days Qty: 90 0RF Discharge Orders: Discharge Order (Routine); Ordered 02/12/22 Ordered By: Taco Baxter Diet: advance to usual diet and low fat, low cholesterol Activity on Discharge: As tolerated Stand Alone Forms: Patient Portal Discharge page Care Plan Goals: Patient was admitted for alcohol withdrawal, uncontrolled hypertension: Started on phenobarb protocol as well as his blood pressure medication adjusted- currently blood pressure seems to be improving. further hypertension workup And blood pressure management out patiently with Nephrology and PCP. anxiety: during this hospitalization was seen by Psychiatry and care team: added Seroquel in addition to his psych medications and gabapentin adjusted: Patient is to follow up outpatient with PCP and Psychiatry/cre team. Health Concerns: as above. Plan of Treatment: As above. Assessment: as above.
[2022-02-12 14:55] VITALS: BP 162/98; PULSE 100; RESP 20; TEMP 36.2; O2SAT 97
--- NOTE | 2022-02-12 14:57 | MHC.CARE ---
RISK CARE Team met with Pt who initially presented to [facility] ED on 02/06 due to alcohol intoxication and BAL was 302. Pt was subsequently medically admitted and has been followed by [facility] psychiatric team for medication recommendations. Pt denies current SI/HI/VH/AH. 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 Pt reports having a strong support system at home and resides with his parents. Pt reports on going anxiety throughout his life and no current providers. 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 Pt requested therapy and psychiatry referrals. Plan for [facility] referral. CARE Team communicated with Dr. Baxter Pt provided with information for [facility] Crisis, [facility], [facility] PHP and CARE Team contact information.
--- NOTE | 2022-02-12 15:04 | PC.NURSE ---
IV AND TELEPACK REMOVED. AWAITING RIDE FROM PATIENTS MOTHER FOR DISCHARGE.
--- NOTE | 2022-02-12 15:23 | MHC.CM.PN ---
Patient has been medically cleared for dc to home today, self care.
[2022-02-16 10:56] LABS: Renin 0.51 ng/mL/h (0.25-5.82)
== END 2022-02-12 16:23 | disposition home or self-care (01) | DRG 351 ==
LOC: HO.ED 09:22 → HO.EDOVER 15:56 → HO.ICU 20:54 → HO.IMC 02-06 21:47 → HO.ICU 02-06 21:53 → HO.IMC 02-07 03:56
PROVIDERS: Emergency Medicine; Internal Medicine Hypertension Specialist; Internal Medicine Pulmonary Disease; Physician Assistant; Admitting Provider Internal Medicine; Emergency Provider Student in an Organized Health Care Education/Training Program; PCP Nurse Practitioner Family; Visit Provider Internal Medicine
DX: M62.82 Rhabdomyolysis (principal); F10.231 Alcohol dependence with withdrawal delirium; E87.2 Acidosis; E78.5 Hyperlipidemia, unspecified; F41.1 Generalized anxiety disorder; I10 Essential (primary) hypertension; I16.0 Hypertensive urgency; K29.20 Alcoholic gastritis without bleeding; F10.229 Alcohol dependence with intoxication, unspecified; F19.939 Other psychoactive substance use, unspecified with withdrawal, unspecified; Y90.8 Blood alcohol level of 240 mg/100 ml or more; E87.6 Hypokalemia; Z20.822 Contact with and (suspected) exposure to COVID-19; Z79.899 Other long term (current) drug therapy
CPT/HCPCS: 36415; 74176; 80048; 80053; 80076; 80307; 81001; 82077; 82088; 82550; 82803; 83605; 83690; 83735; 84100; 84132; 84244; 85025; 87040; 87205; 87635; 93005; 96361; 96374; 96375; 99285; J2060; J2270; J2405; J2765; J3411; J3475

== ENCOUNTER 2022-06-01 12:19 | Outpatient (REF) | payer OTHER, SELFPAY ==
[2022-06-01 12:31] VITALS: BP 163/110; PULSE 85; RESP 16; TEMP 36.3; O2SAT 99
== END 2022-06-01 12:20 | disposition home or self-care (01) ==
LOC: HO.MS 12:19
PROVIDERS: PCP Nurse Practitioner Family; Visit Provider Ophthalmology
PROC: (CPT 66821; principal; 2022-06-01 13:20)
DX: H26.492 Other secondary cataract, left eye (principal); H17.12 Central corneal opacity, left eye; Z96.1 Presence of intraocular lens; I10 Essential (primary) hypertension; F41.1 Generalized anxiety disorder; Z79.899 Other long term (current) drug therapy
CPT/HCPCS: 66821

== ENCOUNTER 2022-06-08 16:48 | Emergency (ER) | payer OTHER, SELFPAY ==
[2022-06-08] VITALS (8 sets, daily range): BP systolic 164–193; BP diastolic 104–135; PULSE 77–111; RESP 11–20; TEMP 36.4–36.8; O2SAT 96–97; BMI 26.4
--- NOTE | ~2022-06-08 | CT_ITS ---
EXAMINATION: CT HEAD WITHOUT CONTRAST CLINICAL INFORMATION: Accelerated hypertension with headache. COMPARISON: None. TECHNIQUE: Contiguous axial imaging was performed from the skull base to vertex without intravenous administration of contrast. This CT examination was performed using dose optimization techniques as appropriate, variously including the following: *Automated exposure control *Adjustment of mA and/or kV according to patient size (this includes techniques or standardized protocols for targeted exams where dose is matched to indication/reason for exam; i.e. extremities or head) *Use of iterative reconstruction technique DLP: 734 mGy-cm FINDINGS: There is no evidence of acute intracranial hemorrhage or edematous territorial infarction. There is no abnormal attenuation within the brain parenchyma. Dela Cruz-white matter differentiation is preserved. The ventricles are normal in size and configuration. No evidence for obstructive hydrocephalus. No abnormal mass effect or midline shift. No extra-axial fluid collections. No acute soft tissue or osseous abnormalities. The mastoid air cells and paranasal sinuses are clear. Left-sided lens extraction. CT/CT head/brain wo IV con IMPRESSION: No evidence of acute intracranial hemorrhage or edematous territorial infarction.
--- OUTSIDE RECORDS SUMMARY | 2022-06-08 17:18 | XMS_ITS | Continuity of Care Document ---
:1985 Author Organization [facility] Address [address] [place] [id number]- Care Team Providers Name Role Phone Shraddha LUCAS, Imtiaz Alcaraz Primary Care Physician [place] [facility] [place]15/20 - 04/15/[address] [address]- [facility] Encounter Diagnosis Burn by hot liquid (Final) - 04/15/20 Discharge Disposition: A-D/C Home Attending Physician: Reema Sauceda MD Admitting Physician: Reema Sauceda MD Referring Physician: Not on Staff, Referring MD Allergies, Adverse Reactions, Alerts Substance Reaction Severity Status Nuts Active Immunizations Not Given Vaccine Date Status Refusal Reason influenza virus vaccine, inactivated 10/03/16 Not Given Patient Refuses pneumococcal 23-valent vaccine 10/03/16 Not Given P atient Refuses Medications BusPIRone By Mouth, 2 times a day, 0 Refills, Maintenance, 11/18/17 0:42:23 Start Date: 11/18/17 Status: OrderedcloNIDine 0.2 mg oral tablet 0.6 mg, By Mouth, 3 times a day, Refills 0, Maintenance, 10/03/16 9:32:46 Start Date: 10/03/16 Status: Orderedgabapentin 300 mg oral capsule 300 mg, 1, capsule, By Mouth, 2 times a day, Refills 0, Maintenance, 10/01/16 22:25:47 Start Date: 10/01/16 Status: Orderedofloxacin 0.3% ophthalmic solution 2 drops, Eyes, Both, 4 times a day, # 10 mL, 0 Refills, Maintenance, 06/06/18 19:07:24 EDT, Solution Start Date: 06/06/18 Stop Date: 06/11/18 Status: OrderedSilvadene 1% cream 1 application, Topically, Daily, for 7 days, # 400 Gm, 0 Refills, Acute 04/22/20 15:48:00 EDT, 04/15/20 15:48:00 EDT, Cream, [facility], 1 application Topically Daily,x7 days, 183, cm, 04/15/20 10:36:00 EDT, Height, 98, kg, 04/15/20 10:36:0... Start Date: 04/15/20 Stop Date: 04/22/20 Status: Ordered Vital Signs Most recent to oldest [Reference Range]: 1 2 Height 183 cm (04/15/20 10:36 AM) Weight 98 kg (04/15/20 10:36 AM) Oxygen Saturation [94-100 %] 99 % (04/15/20 10:36 AM) Pulse Rate [55-90 bpm] 91 bpm *H* (04/15/20 10:36 AM) Body Mass Index [18.5-24.99] 29.26 *H* (04/15/20 10:36 AM) Blood Pressure [90-138/55-84 mm Hg] 145/82 mm Hg *H* (04/15/20 10:36 AM) Respiratory Rate [16-30 br/min] 16 br/min 16 br/mi n (04/15/20 2:42 PM) (04/15/20 10:36 AM) Temperature [96.8-100.4 DegF] 98.3 DegF (04/15/20 10:36 AM) Mode of Delivery (Oxygen) Room air (04/15/20 10:36 AM) Blood pressure sites Arm, left (04/15/20 10:36 AM) Temperature Route Oral (04/15/20 10:36 AM) Dry Weight 98 kg (04/15/20 10:36 AM) Weight Obtained Via Patient/family stated (04/15/20 10:36 AM) Dry Weight Obtained Via Patient/family stated (04/15/20 10:36 AM)
--- OUTSIDE RECORDS SUMMARY | 2022-06-08 17:18 | XMS_ITS | Continuity of Care Document ---
:1985 Author Organization [facility] Address [address] [place] [address]- Care Team Providers Name Role Phone hSraddha LUCAS, Imtiaz Alcaraz Primary Care Physician Encounter [facility] [place] Date(s): 03/03/21 - 04/02/21 [facility] [address] [place] [address]- Attending Physician: Olinda Almanzar MD Referring Physician: Imtiaz Llanes NP Allergies, Adverse Reactions, Alerts Substance Reaction Severity Status Nuts Active Immunizations Not Given Vaccine Date Status Refusal Reason pneumococcal 23-valent vaccine 10/03/16 Not Given P atient Refuses influenza virus vaccine, inactivated 10/03/16 Not Given Patient Refuses Medications BusPIRone By Mouth, 2 times [...] Start Date: 06/06/18 Stop Date: 06/11/18 Status: Ordered
--- OUTSIDE RECORDS SUMMARY | 2022-06-08 17:18 | XMS_ITS | Continuity of Care Document ---
:1985 Author Organization [facility] Address [address] [place] [address]- Care Team Providers Name Role Phone Shraddha LUCAS, Imtiaz Alcaraz Primary Care Physician [place] [facility] [place](s[place] 03/03/21 - 03/03/[address] [address]- Encounter Diagnosis Vitreous detachment of right eye (Final) - 03/03/21 Discharge Disposition: A-D/C Home Attending Physician: Elías Wills MD Admitting Physician: Elías Wills MD Referring Physician: Not on Staff, Referring [...] Date: 06/06/18 Stop Date: 06/11/18 Status: Ordered Vital Signs Most recent to oldest [Reference 1 2 3 Range]: Oxygen Saturation [94-100 %] 99 % 97 % 100 % (03/03/21 6:33 PM) (03/03/21 4:50 PM) (03/03/21 1:31 P M) Pulse Rate [55-90 bpm] 81 bpm 74 bpm 87 bpm (03/03/21 6:33 PM) (03/03/21 4:50 PM) (03/03/21 1:31 P M) Blood Pressure [90-138/55-84 mm 199/122 mm Hg 217/117 mm Hg 215/152 mm Hg Hg] *H* *H* *H* (03/03/21 6:33 PM) (03/03/21 4:50 PM) (03/03/21 1:31 P M) Respiratory Rate [16-30 br/min] 18 br/min 18 br/min 16 br/min (03/03/21 6:33 PM) (03/03/21 4:50 PM) (03/03/21 1:31 P M) Temperature [96.8-100.4 DegF] 98.8 DegF 99.2 DegF (03/03/21 6:33 PM) (03/03/21 1:31 PM) Mode of Delivery (Oxygen) Room air Room air Room a ir (03/03/21 6:33 PM) (03/03/21 4:50 PM) (03/03/21 1:31 P M) Blood pressure sites Arm, left Arm, right Arm, right (03/03/21 6:33 PM) (03/03/21 4:50 PM) (03/03/21 1:31 P M) Temperature Route Oral Oral (03/03/21 6:33 PM) (03/03/21 1:31 PM)
--- OUTSIDE RECORDS SUMMARY | 2022-06-08 17:18 | XMS_ITS | Continuity of Care Document ---
:1985 Author Organization [facility] Address [address] [place] [phone]- Care Team Providers Name Role Phone Shraddha LUCAS, Imtiaz Alcaraz Primary Care Physician [place] [facility] [place] Date(s): 08/02/21 - 08/03/[address] [address]- Encounter Diagnosis Food poisoning (Final) - 08/03/21 Discharge Disposition: A-D/C Home Attending Physician: Terence Heard DO Admitting Physician: Terence Heard DO Referring Physician: Not on Staff, Referring MD [...] Maintenance, 10/01/16 22:25:47 Start Date: 10/01/16 Status: OrderedMorPHINE Inj 4 mg, Injection, IV Push Slowly, Every 5 minutes for 3 doses/times, PRN for Pain , Moderate, and SBPgreater than 100, Routine, 08/02/21 23:55:00 EST, Stop date Limited # of times Start Date: 08/02/21 Stop Date: 08/03/21 Status: Discontinuedofloxacin 0.3% ophthalmic solution 2 drops, Eyes, Both, 4 times a day, # 10 mL, 0 Refills, Maintenance, 06/06/18 19:07:24 EDT, Solution Start Date: 06/06/18 Stop Date: 06/11/18 Status: Ordered Vital Signs Most recent to oldest 1 2 3 [Reference Range]: Oxygen Saturation [94-100 %] 97 % 97 % 96 % (08/03/21 1:28 PM) (08/03/21 10:21 AM) (08/03/21 8: 43 AM) Pulse Rate [55-90 bpm] 68 bpm 61 bpm 70 bpm (08/03/21 1:28 PM) (08/03/21 10:21 AM) (08/03/21 8: 43 AM) Blood Pressure [90-138/55-84 161/100 mm Hg 150/87 mm Hg 161 /110 mm Hg mm Hg] *H* *H* *H* (08/03/21 1:28 PM) (08/03/21 10:21 AM) (08/03/21 8: 43 AM) Respiratory Rate [16-30 15 br/min 16 br/min 16 br/mi n br/min] *L* (08/03/21 10:21 AM) (08/03/21 8:47 AM) (08/03/21 1:28 PM) Temperature [96.8-100.4 DegF] 98 DegF 98.2 DegF (08/03/21 8:43 AM) (08/02/21 11:15 PM) Mode of Delivery (Oxygen) Room air Room air Room a ir (08/03/21 1:28 PM) (08/03/21 10:21 AM) (08/03/21 8: 43 AM) Blood pressure sites Arm, left Arm, left Arm, left (08/03/21 1:28 PM) (08/03/21 10:21 AM) (08/03/21 8: 43 AM) Temperature Route Oral Oral (08/03/21 8:43 AM) (08/02/21 11:15 PM)
--- OUTSIDE RECORDS SUMMARY | 2022-06-08 17:18 | XMS_ITS | Continuity of Care Document ---
:1985 Author Organization [facility] Address [address] [place] [id number]- Care Team Providers Name Role Phone Shraddha LUCAS, Imtiaz Alcaraz Primary Care Physician Encounter [facility] [place] Date(s): 08/03/21 - 08/03/[address] [address]- Discharge Disposition: A-D/C Walkout Attending Physician: Not on Staff, Attending MD Admitting Physician: Not on Staff, Admitting MD Referring Physician: Not on Staff, Referring [...] recent to oldest [Reference Range]: 1 2 Oxygen Saturation [94-100 %] 100 % 95 % (08/03/21 8:13 PM) (08/03/21 7:45 PM) Pulse Rate [55-90 bpm] 99 bpm 94 bpm *H* *H* (08/03/21 8:13 PM) (08/03/21 7:45 PM) Blood Pressure [90-138/55-84 mm Hg] 170/107 mm Hg *H* (08/03/21 8:13 PM) Respiratory Rate [16-30 br/min] 20 br/min 18 br/mi n (08/03/21 8:13 PM) (08/03/21 7:45 PM) Temperature [96.8-100.4 DegF] 98.8 DegF (08/03/21 8:13 PM) Mode of Delivery (Oxygen) Room air Room air (08/03/21 8:13 PM) (08/03/21 7:45 PM) Blood pressure sites Arm, left (08/03/21 8:13 PM) Temperature Route Oral (08/03/21 8:13 PM)
--- OUTSIDE RECORDS SUMMARY | 2022-06-08 17:18 | XMS_ITS | Continuity of Care Document ---
:1985 Author Organization [facility] Address [address] [place] [address]- Care Team Providers Name Role Phone Shraddha LUCAS, Imtiaz Alcaraz Primary Care Physician Encounter [facility] [place] Date(s): 03/03/21 - 04/02/21 [facility] [address] [place], [place] [address] Attending Physician: Dana Chappell Admitting Physician: Dana Chappell Referring Physician: AdmtrDana Allergies, Adverse Reactions, Alerts Substance Reaction Severity [...]
--- NOTE | 2022-06-08 17:20 | ED.HA ---
HPI - Headache General Chief Complaint: Headache Stated Complaint: Headache/post op eye surgery Time Seen by Provider: 06/08/22 17:19 Source: patient Mode of arrival: ambulatory Limitations: no limitations History of Present Illness HPI Narrative: Patient has history of hypertension on multiple medication including lisinopril verapamil and clonidine missed his lisinopril verapamil for last 2 days woke up today with increased headache which get better when standing get worse on bending down no nausea no vomiting no chest pain or palpitation on arrival patient's blood pressure 193/135 repeat blood pressure was 205/113. No vision loss. Patient had a LASIK surgery on the left eye which seems to be okay at this time no pain in the eye. No focal deficit no speech problem patient does have a history of migraine when he was young denies any headache for a long time. No photophobia no fever chills or neck pain headache started sudden onset when he woke up in the morning Related Data Home Medications Medication Instructions Recorded Confirmed atorvastatin 40 mg tablet 40 mg PO BEDTIME 02/25/22 04/20/22 Previous Rx's Medication Instructions Recorded folic acid 1 mg tablet 1 mg PO DAILY #30 tabs 02/12/22 quetiapine 50 mg tablet 50 mg PO BEDTIME #30 tabs 02/12/22 metoprolol succinate 25 mg 25 mg PO DAILY 30 days #30 tabs 02/25/22 tablet,extended release 24 hr clonidine HCl 0.1 mg tablet 0.2 mg PO TID 30 days #180 tabs 03/23/22 gabapentin 300 mg capsule 600 mg PO TID #180 caps 05/13/22 lorazepam 0.5 mg tablet 0.5 mg PO BID PRN anxiety 30 days 05/25/22 #60 tabs quetiapine 25 mg tablet 25 mg PO BID PRN anxiety 30 days 05/25/22 #60 tabs lisinopril 20 mg tablet 40 mg PO DAILY 90 days #60 tabs 06/07/22 verapamil 240 mg tablet,extended 240 mg PO DAILY #30 tabs 06/07/22 release Allergies Allergy/AdvReac Type Severity Reaction Status Date / Time Tree nuts Allergy Unknown Unknown Verified 04/20/22 11:50 Review of Systems Review of Systems: Yes all other systems are reviewed and are negative PMFSH Past Medical History Medical History Alcohol intoxication Anxiety Delirium tremens Elevated lactic acid level Fear of flying Gastritis HTN (hypertension) Hypertensive crisis Metabolic acidosis Palpitation Rhabdomyolysis Uncontrolled hypertension Surgical History Pyogenic granuloma Family History Family History Father Afib CHF (congestive heart failure) CVD (cardiovascular disease) Mother Stroke Mental health disorder Brother Asthma Maternal Grandfather Mental health disorder Maternal Uncle Mental health disorder Social History Social History Household Members: Family Housing: Unknown / Unable to assess Do you presently have visiting nurse or other home services: No Unable to assess alcohol history related to: Unknown Alcohol intake: current Alcohol intake frequency: does not drink Patient Tobacco Use Status: Never used Tobacco e-Cigarette/Vaping Use: Currently Using (sometimes ) Second Hand Smoke Exposure: No Use of substances other than those prescribed or required for medical reasons: No Advance Directives: No Advance Directives Information Provided: No service: Yes Current occupational status: employed 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 Oriented X3. No acute distress. Eyes: PERRLA, No Nystagmus nares clear EOMI painless fundus normal bilateral ENT: Pharynx normal. Oral Mucosa moist no sinus tenderness Neck: Normal inspection. Neck supple. CVS: Normal heart rate and rhythm. Pulses normal. Respiratory: No respiratory distress. Equal air entry bilateral, no wheezing/rales/rhonchi Abdomen: Soft and nontender. Bowel sounds are present, no mass palpable, no CVA tenderness Skin: Skin warm and dry. Normal skin color. Normal skin turgor. Extremities: No lower extremity edema. No calf tenderness Neuro: Oriented X 3. No motor deficit. No sensory deficit.No cerebellar signs , cranial nerves II-XII intact MDM - Headache MDM Narrative Medical decision making narrative: Patient missed his blood pressure medication for 2 days came with headache less than 12 hours duration blood pressure was elevated which improved after giving IV labetalol headache improved after that at this time patient does not have any headache feeling much better CT scan negative for acute discharge patient home Lab Data Attestation: I reviewed the patient's lab results. Result diagrams: 06/08/22 18:05 06/08/22 18:05 Labs: Lab Results 06/08/22 06/08/22 Range/Units 18: 18:05 WBC 6.3 (4.8-10.8) X10*3/uL RBC 5.21 (4.60-5.80) X10*6/uL Hgb 14.4 (14.0-18.0) g/dl Hct 42.7 (42.0-52.0) % MCV 82.0 (80.0-98.0) fL MCH 27.6 (27.0-33.0) pg MCHC 33.7 (31.0-36.0) g/dl RDW 13.9 (11.0-16.0) % Plt Count 289 D (160-400) X10*3/uL MPV 10.8 (9.4-12.4) fL Immature Gran % (Auto) 0.5 H (0.0-0.4) % Neut % (Auto) 65.8 (45-73) % Lymph % (Auto) 23.6 (20-40) % [place]in[place] % (Auto) 7.9 (2-11) % Eos % (Auto) 1.6 (0-4) % Baso % (Auto) 0.6 (0-2) % Lymph # (Auto) 1.5 (1.2-4.9) X10*3/uL [place] # (Auto) 0.5 (0.1-1.2) X10*3/uL Eos # (Auto) 0.1 (0.0-0.4) X10*3/uL Baso # (Auto) 0.0 (0.0-0.2) X10*3/uL Abs Immat Gran (auto) 0.03 (0.00-0.03) X10*3/uL Absolute Neuts (auto) 4.2 (2.0-8.3) x10*3/uL Absolute Nucleated RBC 0.000 (0.0-0.012) X10*3/uL Nucleated RBC % (auto) 0.0 (0.0-0.2) /100WBC Sodium 141 (135-145) mmol/L Potassium 3.6 (3.3-5.1) mmol/L Chloride 104 (96-108) mmol/L Carbon Dioxide 24 (22-29) mmol/L Anion Gap 17 (12-20) BUN 8 L (9-16) mg/dL Creatinine 0.76 (0.5-1.4) mg/dL Estim Creat Clear Calc 147.4 Estimated GFR > 60 Random Glucose 109 (60-115) mg/dL Calcium 10.4 H D (8.4-10.2) mg/dL Critical Care Time Critical Care Time Critical Care Time: Yes Total Critical Care Time: 35 Attestation: I spent 35 minutes of critical care, with interventions, assessments, IV labetalol Discharge Plan Discharge Clinical Impression: Hypertension, accelerated Patient Disposition: Home, Self-Care Instructions: Hypertension (ED) Additional Instructions: Do not miss her medication for blood pressure and take them every day Blood pressure normal should be less than 135/85 Follow up with PCP Prescriptions: No Action clonidine HCl 0.1 mg tablet 0.2 mg PO TID 30 Days Qty: 180 2RF gabapentin 300 mg capsule 600 mg PO TID Qty: 180 0RF quetiapine 25 mg tablet 25 mg PO BID PRN (Reason: anxiety) 30 Days Qty: 60 0RF lorazepam 0.5 mg tablet 0.5 mg PO BID PRN (Reason: anxiety) 30 Days Qty: 60 0RF lisinopril 20 mg tablet 40 mg PO DAILY 90 Days Qty: 60 0RF verapamil 240 mg tablet extended release 240 mg PO DAILY Qty: 30 0RF quetiapine 50 mg Tablet 50 mg PO BEDTIME Qty: 30 0RF folic acid 1 mg tablet 1 mg PO DAILY Qty: 30 0RF atorvastatin 40 mg tablet 40 mg PO BEDTIME metoprolol succinate 25 mg tablet extended release 24 hr 25 mg PO DAILY 30 Days Qty: 30 3RF Interventions: ED Discharge Assessment Last Done: 06/08/22 21:08 Discharge Date/Time: 06/08/22 21:09
[2022-06-08 18:09] LABS: MANUAL DIFF FLAG NO
[2022-06-08 18:10] LABS: Basophils Percent Auto 0.6 % (0-2); Eosinophils Absolute Auto 0.1 X10*3/uL (0.0-0.4); Eosinophils Percent Auto 1.6 % (0-4); Hematocrit 42.7 % (42.0-52.0); Hemoglobin 14.4 g/dl (14.0-18.0); Imm Gran Abs Auto 0.03 X10*3/uL (0.00-0.03); Imm Gran Pct Auto 0.5 % (0.0-0.4); Lymphocytes Absolute Auto 1.5 X10*3/uL (1.2-4.9); Lymphocytes Percent Auto 23.6 % (20-40); Mean Corpuscular HGB Conc 33.7 g/dl (31.0-36.0); Mean Corpuscular Hemoglobin 27.6 pg (27.0-33.0); Mean Platelet Volume 10.8 fL (9.4-12.4); Monocytes Absolute Auto 0.5 X10*3/uL (0.1-1.2); Monocytes Percent Auto 7.9 % (2-11); Neutrophils Absolute Auto 4.2 x10*3/uL (2.0-8.3); Neutrophils Percent Auto 65.8 % (45-73); Platelet Count 289 X10*3/uL (160-400); Red Blood Count 5.21 X10*6/uL (4.60-5.80); Red Cell Distribution Width 13.9 % (11.0-16.0); White Blood Count 6.3 X10*3/uL (4.8-10.8)
[2022-06-08] MEDS: Labetalol HCL 100 MG/20 ML VIAL 20 MG IVPUSH ×2 (18:14→19:40)
[2022-06-08 18:25] LABS: Anion Gap 17 (12-20); Blood Urea Nitrogen 8 mg/dL (9-16); Calcium 10.4 mg/dL (8.4-10.2); Carbon Dioxide 24 mmol/L (22-29); Chloride 104 mmol/L (96-108); Creatinine Clr Calc Pharmacy 147.4; Estimated Glomerular Filt Rate > 60; Glucose Random 109 mg/dL (60-115); Potassium 3.6 mmol/L (3.3-5.1); Sodium 141 mmol/L (135-145)
[2022-06-08] MEDS: cloNIDine HCL 0.1 MG TABLET PO (19:40)
[2022-06-08] MEDS: Morphine Sulfate 2 MG/ML CARTRIDGE IVPUSH (19:41)
[2022-06-08] MEDS: lisinopriL 20 MG TABLET PO (20:54)
--- NOTE | 2022-06-08 21:08 | PC.NURSE ---
Discharge instructions provided to pt. Pt verbalilzed understanding.
== END 2022-06-08 21:09 | disposition home or self-care (01) ==
PROVIDERS: Emergency Provider Internal Medicine; PCP Nurse Practitioner Family
DX: I10 Essential (primary) hypertension (principal); R51.9 Headache, unspecified; E78.5 Hyperlipidemia, unspecified; F17.290 Nicotine dependence, other tobacco product, uncomplicated; Z79.899 Other long term (current) drug therapy; Z79.02 Long term (current) use of antithrombotics/antiplatelets
CPT/HCPCS: 36415; 70450; 80048; 85025; 96374; 96375; 96376; 99284; J2270

== ENCOUNTER 2023-04-21 11:06 | Outpatient (AMB) | payer OTHER, SELFPAY ==
[2023-04-21 11:13] VITALS: BP 150/88; PULSE 99; O2SAT 97; BMI 25.8
--- NOTE | 2023-04-21 11:13 | A.OFFPC_ITS ---
Vital Signs 04/21/23 11:13 Height 6 ft 3 in Weight 206 lb 2 oz BMI 25.8 BP 150/88 H Blood Pressure Location Lt brachial Position Sitting Pulse 99 Pulse Source Pulse Oximeter Pulse Oximetry (%) 97 Oxygen Delivery Method Room Air Intake Visit Reasons: PE Allergies tree nut Allergy (Unknown, Verified 04/21/23 11:16) Unknown Tobacco use date assessed: 04/21/23 Dental Screening Dental Screen Date: 04/21/23 Did you have a dental visit in the last 12 months?: No Did you have a dental problem in the last 6 months where you did not have access to dental care?: No Was dental information given to patient?: Patient has dentist HPI PE HPI Details Pt was seen in the ER on 04/04 after being found with AMS after drinking a large amount of alcohol the previous night. In the ER pt was hypotensive, BP was 70s/30s. See labs results. Tox screen was negative, serum ethanol was 41. CT of the brain was negative for acute abnormality. CT of the cervical spine was negative for acute abnormality. Chest xr showed findings consistent with mild early CHF pattern, pt not volume overloaded. Retroperitoneal US was negative. Toxic metabolic encephalopathy noted, likely multifactoral, exact etiology unclear. Pt reports he may have taken extra clonidine though he was unsure. Hypotension resolved with IV fluids. Pt was seen by therapy who cleared him for a regular diet. Lactic acid was significantly elevated on admission at 11, received multiple fluid boluses and this improved. High anion gap metabolic acidosis likely secondary to lactic acidosis and excessive alcohol intake, improved with IV fluids. Multiple electrolyte disturbances including hypokalemia at 1.0, received appropriate repletion and levels returned to normal. Pt's initial troponin was 49, trended up to 396. Initial EKG showed QTc prolongation 560, bradycardia, T wave flattening, nonischemic. On d/c troponin decreased significantly down to 180s. Echo showed normal left ventricular EF, no wall motion abnormality, noted to have severely dilated left atrium. Cardiology was consulted and believed this was likely demand ischemia in the setting of severe hypoperfusion/hypotension. They did not recommend further workup. Pt was hypertensive during his hospital stay, this was thought to be due to anxiety. Pt was started on amlodipine, though he has not taken this, will have pt start this. Pt is also off his verapamil. He will let me know next week how his BP is, may change his beta-chidi. Pt now reports that the reason he had AMS was because he took his medication twice causing his blood pressure to drop significantly. Pt reports doing well. Denies chest pain, shortness of breath, headache, dizziness, and blurred vision. [facility] Medical History (Updated 04/21/23 @ 12:30 by WILLEM Grewal-SHAHRIAR) Alcohol intoxication Anxiety Delirium tremens Elevated lactic acid level Fear of flying Gastritis HTN (hypertension) Hypertensive crisis Metabolic acidosis Palpitation Rhabdomyolysis Uncontrolled hypertension Surgical History Pyogenic granuloma Family History Father Afib CHF (congestive heart failure) CVD (cardiovascular disease) Mother Stroke Mental health disorder Brother Asthma Maternal Grandfather Mental health disorder Maternal Uncle Mental health disorder Social History Household Members: Family Housing: Unknown / Unable to assess Do you presently have visiting nurse or other home services: No Unable to assess alcohol history related to: Unknown Alcohol intake: current Alcohol intake frequency: does not drink Patient Tobacco Use Status: Never used Tobacco e-Cigarette/Vaping Use: Currently Using (sometimes ) Second Hand Smoke Exposure: No service: Yes Current occupational status: employed 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 Elías Camargo, Nadege Tovar, Norris Monson and colleagues, with an educational mary from [employer]. Review of Systems Const Reports as per HPI Physical exam (Primary Care) Vital Signs: Last Vital Signs Pulse 99 04/21/23 11:13 Pulse Ox 97 04/21/23 11:13 Oxygen Delivery Method Room Air 04/21/23 11:13 BMI result Body Mass Index 25.8 Tobacco/Smoking Status: Tobacco use Status Tobacco use date assessed 10/28/22 04/21/23 11:14 Patient Tobacco Use Status Never used Tobacco 04/21/23 11:14 e-Cigarette/Vaping Use Currently Using (sometimes ) 04/21/23 11:14 Thrive Assessment: Date of Thrive Assessment Date Thrive assessed 04/20/22 04/21/23 11:14 Const General: cooperative Orientation/consciousness: patient oriented x3 Resp Effort & Inspection: normal respiratory effort Auscultation: clear to auscultation bilaterally Cardio Rate: regular rate Rhythm: regular rhythm Heart sounds: S1 normal heart sound present and S2 normal heart sound present Neuro General: patient oriented x3 Psych Appearance: grossly normal Mental Status: mental status grossly normal Speech and movement: Normal speech and movement present Affect: normal affect Attitude: cooperative Thought process: Normal thought process present Thought content: Normal thought content present Insight: Good insight present (Psych) Judgement: Good judgement present (Psych) Assessment and Plan Assessment & Plan (1) Anxiety disorder: Code(s): F41.9 - Anxiety disorder, unspecified Plan: Labs ordered (2) HTN (hypertension): Comment: stopping verapamil, starting amlodipine, pt will contact me next week with BPs, may change his BB to coreg Code(s): I10 - Essential (primary) hypertension Plan: Labs ordered (3) Alcohol intoxication: Code(s): F10.929 - Alcohol use, unspecified with intoxication, unspecified Plan: Labs ordered Plan The patient agreed to the use of a special forces medical sergeant for this encounter. Scribed for LAZ Townsend by Alpa Jett special forces medical sergeant, on 04/21/2023 at 11:25 EST. Orders: Orders Comprehensive [place]. Panel Fast Today F10.929 - Alcohol use, unspecified with intoxication, unspecified, F41.9 - Anxiety disorder, unspecified, I10 - Essential (primary) hypertension Lipid Panel Today F10.929 - Alcohol use, unspecified with intoxication, unspecified, F41.9 - Anxiety disorder, unspecified, I10 - Essential (primary) hypertension TSH reflex Free T4 Today F10.929 - Alcohol use, unspecified with intoxication, unspecified, F41.9 - Anxiety disorder, unspecified, I10 - Essential (primary) hypertension Complete Blood Count Auto Diff Today F10.929 - Alcohol use, unspecified with intoxication, unspecified, F41.9 - Anxiety disorder, unspecified, I10 - Essential (primary) hypertension UA CC w/rflx Micro + Cult Today F10.929 - Alcohol use, unspecified with intoxication, unspecified, F41.9 - Anxiety disorder, unspecified, I10 - Essential (primary) hypertension Coding Level of Care Code Est Pt Prev Care 18-39y(75166) Diagnoses Anxiety disorder F41.9 HTN (hypertension) I10 Alcohol intoxication F10.929
== END 2023-04-21 11:44 | disposition home or self-care (01) ==
PROVIDERS: Visit Provider Nurse Practitioner Family
DX: Z00.00 Encounter for general adult medical examination without abnormal findings (principal); F41.9 Anxiety disorder, unspecified; I10 Essential (primary) hypertension; F10.929 Alcohol use, unspecified with intoxication, unspecified
CPT/HCPCS: 99395

== ENCOUNTER 2023-04-21 11:43 | Outpatient (REF) | payer OTHER, SELFPAY ==
[2023-04-21 13:31] LABS: MANUAL DIFF FLAG NO
[2023-04-21 13:39] LABS: Basophils Absolute Auto 0.1 X10*3/uL (0.0-0.2); Basophils Percent Auto 1.3 % (0-2); Eosinophils Absolute Auto 0.2 X10*3/uL (0.0-0.4); Eosinophils Percent Auto 2.7 % (0-4); Hematocrit 33.4 % (42.0-52.0); Imm Gran Abs Auto 0.02 X10*3/uL (0.00-0.03); Imm Gran Pct Auto 0.3 % (0.0-0.4); Lymphocytes Absolute Auto 1.3 X10*3/uL (1.2-4.9); Lymphocytes Percent Auto 21.7 % (20-40); Mean Corpuscular HGB Conc 29.9 g/dl (31.0-36.0); Mean Corpuscular Hemoglobin 22.8 pg (27.0-33.0); Mean Corpuscular Volume 76.1 fL (80.0-98.0); Mean Platelet Volume 11.1 fL (9.4-12.4); Monocytes Absolute Auto 0.4 X10*3/uL (0.1-1.2); Monocytes Percent Auto 6.5 % (2-11); Neutrophils Absolute Auto 4.1 x10*3/uL (2.0-8.3); Neutrophils Percent Auto 67.5 % (45-73); Platelet Count 392 X10*3/uL (160-400); Red Blood Count 4.39 X10*6/uL (4.60-5.80); Red Cell Distribution Width 16.7 % (11.0-16.0)
[2023-04-21 14:37] LABS: Alanine Aminotransferase 36 U/L (0-40); Albumin Level 4.5 g/dL (3.5-5.0); Alkaline Phosphatase 97 U/L (39-117); Anion Gap 14 (12-20); Aspartate Amino Transferase 24 U/L (5-37); Bilirubin Total 0.3 mg/dL (0.0-1.0); Blood Urea Nitrogen 14 mg/dL (9-16); Calcium 9.8 mg/dL (8.4-10.2); Carbon Dioxide 24 mmol/L (22-29); Chloride 107 mmol/L (96-108); Cholesterol 223 mg/dL (<200); Estimated Glomerular Filt Rate > 60; Glucose Fasting 99 mg/dL (60-99); HDL Cholesterol 36 mg/dL (>40); LDL Cholesterol Calculated 131 mg/dL (<100); Potassium 3.6 mmol/L (3.3-5.1); Sodium 141 mmol/L (135-145); Total Protein 7.5 g/dL (6.5-8.0); Triglycerides 280 mg/dL (<150)
[2023-04-21 14:39] LABS: TSH reflex Free T4 0.98 uIU/mL (0.32-4.0)
== END 2023-04-21 11:44 | disposition home or self-care (01) ==
LOC: HO.HMGCLDS 11:43
PROVIDERS: PCP Nurse Practitioner Family; Visit Provider Nurse Practitioner Family
DX: F10.929 Alcohol use, unspecified with intoxication, unspecified (principal); F41.9 Anxiety disorder, unspecified; I10 Essential (primary) hypertension
CPT/HCPCS: 36415; 80053; 80061; 84443; 85025

== ENCOUNTER 2023-08-19 09:50 | Outpatient (AMB) | payer OTHER, SELFPAY ==
--- NOTE | 2023-08-19 09:52 | MHC.PC.OV ---
Vital Signs 08/19/23 09:56 Height 6 ft 3 in Weight 212 lb BMI 26.5 BP 130/90 H Blood Pressure Location Rt brachial Position Sitting Pulse 86 Pulse Source Pulse Oximeter Pulse Oximetry (%) 98 Oxygen Delivery Method Room Air Intake Visit Reasons: 4 MON FUP + NEEDS PHQ9+ THRIVE Allergies tree nut Allergy (Unknown, Verified 08/19/23 09:57) Unknown Medication List - Last Reconciled 08/19/23 by KIKI Grewal atorvastatin 40 mg PO BEDTIME clonidine HCl 0.2 mg (2 x 0.1 mg) PO TID 90 days gabapentin 600 mg (2 x 300 mg) PO TID lisinopril 40 mg (2 x 20 mg) PO DAILY 90 days lorazepam 0.5 mg PO BID PRN 30 days metoprolol succinate ER 25 mg PO DAILY quetiapine 25 mg PO BID PRN 30 days valacyclovir 2,000 mg (2 x 1 gram) PO BID 1 day verapamil ER 240 mg PO DAILY 90 days Tobacco use date assessed: 04/21/23 HPI 4 MON FUP + NEEDS PHQ9+ THRIVE HPI Details HTN: Blood pressure is managed with lisinopril 40mg, metoprolol 25mg, and verapamil 240mg. Pt reports that his blood pressure at home has been in the 120s-130s/80s-90s. He states that he has not been taking his BP meds because he ran out one week ago, will refill. Will have pt continue to monitor his BP at home. Denies chest pain, shortness of breath, headache, dizziness, and blurred vision. [facility] Medical History (Updated 08/19/23 @ 12:15 by KIKI Grewal) Delirium tremens Rhabdomyolysis Elevated lactic acid level Metabolic acidosis Alcohol intoxication Uncontrolled hypertension Hypertensive crisis Gastritis Fear of flying Palpitation HTN (hypertension) Anxiety Surgical History Pyogenic granuloma Family History Father Afib CHF (congestive heart failure) CVD (cardiovascular disease) Mother Stroke Mental health disorder Brother Asthma Maternal Grandfather Mental health disorder Maternal Uncle Mental health disorder Social History Household Members: Family Housing: Unknown / Unable to assess Do you presently have visiting nurse or other home services: No Unable to assess alcohol history related to: Unknown Alcohol intake: current Alcohol intake frequency: does not drink Patient Tobacco Use Status: Never used Tobacco e-Cigarette/Vaping Use: Currently Using (sometimes ) Second Hand Smoke Exposure: No service: Yes Current occupational status: employed 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 1. Little interest or pleasure in doing things: not at all 2. Feeling down, depressed, or hopeless: not at all 3. Trouble falling or staying asleep, or sleeping too much: not at all 4. Feeling tired or having little energy: not at all 5. Poor appetite or overeating: not at all 6. Feeling bad about yourself - or that you are a failure or have let yourself or your family down: not at all 7. Trouble concentrating on things, such as reading the newspaper or watching television: not at all 8. Moving or speaking so slowly that other people could have noticed. Or the opposite - being so fidgety or restless that you have been moving around a lot more than usual: not at all 9. Thoughts that you would be better off or of hurting yourself in some way: not at all Total score: 0 Depression Screening Interpretation: Negative Depression Screening Done: Yes Source: Developed by Drs. Elías Camargo, Nadege Tovar, Norris Monson and colleagues, with an educational mary from [employer]. Thrive Questionnaire Date Thrive assessed: 08/19/23 I am a: Patient What is your living situation today?: I have a steady place to live Within the past 12 months, did the food you bought not last and you didn't have the money to get more?: Never true Within the past 12 months, did you worry whether your food would run out before you got money to buy more?: Never true Do you have trouble paying for medicines?: No Do you have trouble getting transportation to medical appointments?: No Do you have trouble paying your heating and electricity bill?: No Do you have trouble taking care of your child, family member or friend?: No Do you have trouble with day-to-day activities such as bathing, preparing meals, shopping, managing finances, etc.?: No Are you currently unemployed and looking for a job?: No Are you interested in more education?: No NEMESIO-7 AMB Questionnaire NEMESIO-7 Date NEMESIO - 7 assessed: 08/19/23 Source: Developed by Drs. Elías Camargo, Nadege Tovar, Norris Monson and colleagues, with an educational mary from [employer]. NEMESIO-7 Assessment Billing NEMESIO-7 Assessment Tool: pt declined-do not bill Review of Systems Const Reports as per HPI Physical exam (Primary Care) Vital Signs: Last Vital Signs Pulse 86 08/19/23 09:56 BP 130/90 H 08/19/23 09:56 Pulse Ox 98 08/19/23 09:56 Oxygen Delivery Method Room Air 08/19/23 09:56 BMI result Body Mass Index 26.5 Tobacco/Smoking Status: Tobacco use Status Tobacco use date assessed 04/21/23 08/19/23 09:54 Patient Tobacco Use Status Never used Tobacco 08/19/23 09:54 e-Cigarette/Vaping Use Currently Using (sometimes ) 08/19/23 09:54 PHQ-9: PHQ-9 Score PHQ-9: Total score 0 08/19/23 12:15 Depression Screening Interpretation: Negative Thrive Assessment: Date of Thrive Assessment Date Thrive assessed 08/19/23 08/19/23 10:34 Const General: cooperative Orientation/consciousness: patient oriented x3 Resp Effort & Inspection: normal respiratory effort Auscultation: clear to auscultation bilaterally Cardio Rate: regular rate Rhythm: regular rhythm Heart sounds: S1 normal heart sound present and S2 normal heart sound present Neuro General: patient oriented x3 Psych Appearance: grossly normal Mental Status: mental status grossly normal Speech and movement: Normal speech and movement present Affect: normal affect Attitude: cooperative Thought process: Normal thought process present Thought content: Normal thought content present Insight: Good insight present (Psych) Judgement: Good judgement present (Psych) Assessment and Plan Assessment & Plan (1) HTN (hypertension): Comment: Code(s): I10 - Essential (primary) hypertension Plan The patient agreed to the use of a medical radiation dosimetrist for this encounter. Scribed for WILLEM Townsend-SHAHRIAR by Alpa Jett medical radiation dosimetrist, on 08/19/2023 at 10:05 EST. Medications: Refilled lisinopril 40 mg (2 x 20 mg) PO DAILY 180 tabs 1RF 90 days verapamil ER 240 mg PO DAILY 90 tabs 1RF 90 days metoprolol succinate ER 25 mg PO DAILY 90 tabs 1RF Coding Level of Care Code Est Pt Level 3 (28002) Diagnoses HTN (hypertension) I10
[2023-08-19 09:56] VITALS: BP 130/90; PULSE 86; O2SAT 98; BMI 26.5
== END 2023-08-19 10:23 | disposition home or self-care (01) ==
PROVIDERS: PCP Nurse Practitioner Family; Visit Provider Nurse Practitioner Family
DX: I10 Essential (primary) hypertension (principal)
CPT/HCPCS: 99213

== ENCOUNTER 2024-05-03 11:04 | Outpatient (AMB) | payer OTHER, SELFPAY ==
[2024-05-03 11:07] VITALS: BP 126/80; PULSE 76; O2SAT 96; BMI 26.2
--- NOTE | 2024-05-03 11:07 | A.OFFPC_ITS ---
Vital Signs 05/03/24 11:07 Height 6 ft 3 in Weight 210 lb BMI 26.2 BP 126/80 Blood Pressure Location Rt brachial Position Sitting Pulse 76 Pulse Source Pulse Oximeter Pulse Oximetry (%) 96 Intake Visit Reasons: Annual PE Intake Note: pt is here for annual exam Complex Care Nurse Practitioner Required: No Accompanied by: Self / Same As Patient Allergies tree nut Allergy (Unknown, Verified 05/03/24 11:07) Unknown Medication List - Last Reconciled 05/03/24 by KIKI Grewal atorvastatin 40 mg PO BEDTIME clonidine HCl 0.2 mg (2 x 0.1 mg) PO TID 90 days gabapentin 600 mg (2 x 300 mg) PO TID lisinopril 40 mg (2 x 20 mg) PO DAILY 90 days lorazepam 0.5 mg PO BID PRN 30 days metoprolol succinate ER 25 mg PO DAILY valacyclovir 2,000 mg (2 x 1 gram) PO BID 1 day verapamil ER 240 mg PO DAILY 90 days Tobacco use date assessed: 05/03/24 Dental Screening Dental Screen Date: 05/03/24 Did you have a dental visit in the last 12 months?: Yes Did you have a dental problem in the last 6 months where you did not have access to dental care?: No Was dental information given to patient?: Patient has dentist HPI Annual PE HPI Details Pt is here for a PE. Will order labs. Pt c/o lower back pain. He reports that the pain radiates down his lower extremities and causes numbness of his feet. Will order XR and refer to PT. Denies any signs of cauda equina. [facility] Medical History Delirium tremens Rhabdomyolysis Elevated lactic acid level Metabolic acidosis Alcohol intoxication Uncontrolled hypertension Hypertensive crisis Gastritis Fear of flying Palpitation HTN (hypertension) Anxiety Surgical History Pyogenic granuloma Family History Father Afib CHF (congestive heart failure) CVD (cardiovascular disease) Mother Stroke Mental health disorder Brother Asthma Maternal Grandfather Mental health disorder Maternal Uncle Mental health disorder Social History Household Members: Family Housing: Unknown / Unable to assess Do you presently have visiting nurse or other home services: No Unable to assess alcohol history related to: Unknown Alcohol intake: current Alcohol intake frequency: does not drink Patient Tobacco Use Status: Never used Tobacco e-Cigarette/Vaping Use: Currently Using (sometimes ) Second Hand Smoke Exposure: No service: Yes Current occupational status: employed 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 1. Little interest or pleasure in doing things: not at all 2. Feeling down, depressed, or hopeless: not at all 3. Trouble falling or staying asleep, or sleeping too much: nearly every day 4. Feeling tired or having little energy: more than half the days 5. Poor appetite or overeating: not at all 6. Feeling bad about yourself - or that you are a failure or have let yourself or your family down: not at all 7. Trouble concentrating on things, such as reading the newspaper or watching television: not at all 8. Moving or speaking so slowly that other people could have noticed. Or the opposite - being so fidgety or restless that you have been moving around a lot more than usual: not at all 9. Thoughts that you would be better off or of hurting yourself in some way: not at all Total score: 5 Depression Screening Interpretation: Negative Depression Screening Done: Yes 54776 - PHQ-9 Billing: Yes Source: Developed by Drs. Elías Camargo, Nadege Tovar, Norris Monson and colleagues, with an educational mary from [employer]. Thrive Questionnaire Date Thrive assessed: 05/03/24 I am a: Patient What is your living situation today?: I have a steady place to live Within the past 12 months, did the food you bought not last and you didn't have the money to get more?: Never true Within the past 12 months, did you worry whether your food would run out before you got money to buy more?: Never true Do you have trouble paying for medicines?: No Do you have trouble getting transportation to medical appointments?: No Do you have trouble paying your heating and electricity bill?: No Do you have trouble taking care of your child, family member or friend?: No Do you have trouble with day-to-day activities such as bathing, preparing meals, shopping, managing finances, etc.?: No Are you currently unemployed and looking for a job?: No Are you interested in more education?: No Please select the resources that you would like help with: None Currently or been in a relationship where the following occur: No concerns reported THRIVE Score: 0 AUDIT C Alcohol Use Questionnaire (AUDIT-C) 1. How often do you have a drink containing alcohol?: Monthly or less 2. How many drinks containing alcohol do you have on a typical day when you are drinking?: 7 to 9 3. How often do you have six or more drinks on one occasion?: Monthly Total Score: 6 Score Reviewed/Action Taken: Yes NEMESIO-7 AMB Questionnaire NEMESIO-7 Date NEMESIO - 7 assessed: 05/03/24 Feeling nervous, anxious, or on edge: 1 = Several days Not being able to stop or control worryin = Several days Worrying too much about different things: 1 = Several days Trouble relaxin = Several days Being so restless that it is hard to sit still: 1 = Several days Becoming easily annoyed or irritable: 0 = Not at all Feeling afraid as if something awful might happen: 1 = Several days Total NEMESIO-7 score (0-4 normal; 5-9 mild; 10-14 moderate; 15-21 severe): 6 Source: Developed by Drs. Elías Camargo, Nadege Tovar, Norris Monson and colleagues, with an educational mary from [employer]. NEMESIO-7 Assessment Billing NEMESIO-7 Assessment Tool: NEMESIO-7 Assessment 66896 Review of Systems Const Denies chills and Denies fever(s) Eyes Denies blurry vision ENT Denies vertigo, Denies dizziness and Denies sore throat Card Denies chest pain at rest, Denies chest pain with activity, Denies diaphoresis, Denies dyspnea and Denies dyspnea on exertion Resp Denies cough, Denies dyspnea, Denies dyspnea on exertion and Denies wheezing GI Denies abdominal pain, Denies melena, Denies hematochezia, Denies constipation, Denies diarrhea and Denies loose stools Denies hematuria Musc Reports back pain, Reports numbness and Reports tingling Skin/Breast Denies lesions Neuro Denies vertigo, Denies dizziness, Reports numbness and Reports tingling Psych Denies anxiety, Denies depression, Denies homicidal ideation, Denies suicidal ideation and Denies other (substance abuse) Aller/Immun Denies wheezing Physical exam (Primary Care) Vital Signs: Last Vital Signs Pulse 76 05/03/24 11:07 BP 126/80 05/03/24 11:07 Pulse Ox 96 05/03/24 11:07 BMI result Body Mass Index 26.2 Tobacco/Smoking Status: Tobacco use Status Tobacco use date assessed 05/03/24 05/03/24 11:10 Patient Tobacco Use Status Never used Tobacco 05/03/24 11:10 e-Cigarette/Vaping Use Currently Using (sometimes ) 05/03/24 11:10 PHQ-9: PHQ-9 Score PHQ-9: Total score 5 05/03/24 11:10 Depression Screening Interpretation: Negative Thrive Assessment: Date of Thrive Assessment Date Thrive assessed 05/03/24 05/03/24 11:10 Currently or been in a relationship where the following occur: No concerns reported Const General: cooperative Nutritional Appearance: well nourished Orientation/consciousness: patient oriented x3 HENMT Head: Yes normal to inspection, Yes normocephalic and Yes atraumatic Ears: TM's normal bilaterally Eyes General: appearance normal, both eyes and all related structures Alignment and Position: alignment normal and position normal Neck Neck: Yes normal visual inspection, Yes no lymphadenopathy and Yes supple Resp Effort & Inspection: normal respiratory effort Auscultation: clear to auscultation bilaterally Cardio Rate: regular rate Rhythm: regular rhythm Heart sounds: S1 normal heart sound present, S2 normal heart sound present and no murmurs GI Palpation (GI): Soft to palpation and nontender Auscultation: normal bowel sounds Male General Exam: Yes normal external exam Penis: normal penis Scrotum: scrotum normal, testes descended bilaterally and no inguinal hernias Testes: no testicular mass Back/Spine/Pelvis Other: no radicular symptoms with bilat knee to chest raises, entire BLE raises, and heel and toe walking Skin Rashes: no rashes Neuro General: patient oriented x3, moves all extremities, no focal motor deficits and deep tendon reflexes 2+ bilaterally Romberg Test: Negative Extrem Other: + patellar reflexes, + dorslis pedis pulses Psych Appearance: grossly normal Mental Status: mental status grossly normal Speech and movement: Normal speech and movement present Affect: normal affect Attitude: cooperative Thought process: Normal thought process present Thought content: Normal thought content present Insight: Good insight present (Psych) Judgement: Good judgement present (Psych) Assessment and Plan Assessment & Plan (1) Physical exam: Code(s): Z00.00 - Encounter for general adult medical examination without abnormal findings Plan: Labs ordered (2) Lumbar back pain: Code(s): M54.50 - Low back pain, unspecified Plan: XR ordered, referred to PT Plan The patient agreed to the use of a hospital medical biller for this encounter. Scribed f or WILLEM Townsedn-SHAHRIAR by Alpa Jett hospital medical biller, on 05/03/2024 at 11:15 EST. Orders: Orders Lipid Panel Today Z00.00 - Encounter for general adult medical examination without abnormal findings XR lumbar spine 2-3V Today M54.50 - Low back pain, unspecified Complete Blood Count Auto Diff Today Z00.00 - Encounter for general adult medical examination without abnormal findings Comprehensive [place]. Panel Fast Today Z00.00 - Encounter for general adult medical examination without abnormal findings TSH reflex Free T4 Today Z00.00 - Encounter for general adult medical examination without abnormal findings UA CC w/rflx Micro + Cult Today Z00.00 - Encounter for general adult medical examination without abnormal findings PT Evaluation and Treatment Today M54.50 - Low back pain, unspecified Medications: New atorvastatin 40 mg PO BEDTIME 90 tabs 0RF Coding Level of Care Code Est Pt Prev Care 18-39y(33365) Diagnoses Physical exam Z00.00 Lumbar back pain M54.50 Additional Codes NEMESIO-7 Assessment Billing - NEMESIO-7 Assessment Tool: NEMESIO-7 Assessment 46371 ([id number])
== END 2024-05-03 11:33 | disposition home or self-care (01) ==
PROVIDERS: PCP Nurse Practitioner Family; Visit Provider Nurse Practitioner Family
DX: Z00.00 Encounter for general adult medical examination without abnormal findings (principal); M54.50 Low back pain, unspecified
CPT/HCPCS: 99395

== ENCOUNTER 2024-05-03 11:34 | Outpatient (REF) | payer OTHER, SELFPAY ==
--- NOTE | ~2024-05-03 | XR_ITS ---
EXAMINATION: XR LUMBOSACRAL SPINE CLINICAL INFORMATION: Lower back pain. COMPARISON: None available. TECHNIQUE: Three views of the lumbosacral spine. FINDINGS: No acute fracture or subluxation. The lumbar lordosis is maintained. No loss of vertebral body height. Minimal multilevel loss of intervertebral disc height with tiny endplate osteophytes. Bilateral facet arthropathy at L5-S1. No concerning lytic or blastic osseous lesion. No abnormal soft tissue calcification. XR/XR lumbar spine 2-3V IMPRESSION: Mild multilevel degenerative disc disease. Bilateral facet arthropathy at L5-S1. Electronically signed by: Armen Constantino MD 05/18/2024 08:57 PM EDT
== END 2024-05-03 11:35 | disposition home or self-care (01) ==
LOC: HO.HMGCX 11:34
PROVIDERS: PCP Nurse Practitioner Family; Visit Provider Nurse Practitioner Family
DX: M54.50 Low back pain, unspecified (principal)
CPT/HCPCS: 72100

== ENCOUNTER 2025-03-08 15:06 | Outpatient (AMB) | payer OTHER, SELFPAY ==
[2025-03-08 15:07] VITALS: BP 135/100; PULSE 96; TEMP 37; O2SAT 97; BMI 24.7
--- NOTE | 2025-03-08 15:07 | AM.OFFWIN_ITS ---
Intake Vital Signs 3 03/08/25 15:07 Height 6 ft 3 in Weight 197 lb 4 oz BMI 24.7 BP 135/100 H Blood Pressure Location Lt brachial Position Sitting Pulse 96 Pulse Source Pulse Oximeter Temp 98.6 F Temp Source Oral Pulse Oximetry (%) 97 Oxygen Delivery Method Room Air Intake Visit Reasons: EP ? sore on the tongue Intake Note: Patient present with an oral growth times 3 weeks and painless Patient Tobacco Use Status: Never used Tobacco Laboratory Chemical Assistant Required: No Allergies tree nut Allergy (Unknown, Verified 03/08/25 15:12) Unknown Do you need a note to return to daycare/school/sports/work: No HPI HPI Comments 2 History of Present Illness0 Details 39 y/o Male patient who presents to the walk in clinic with c/o Tongue Lesion for 3 weeks now. Reports noticing it 3 weeks after he Bit his tongue. Denies Pain or bleeding. He has not had any dental work for 2 years due to [place] of Dental insurance. Reports recent ( 3 months ago) sexual intercourse with multiple Female partners with giving oral sex and no protection. Denies fevers, chills, nausea, or vomiting - has good appetite but does endorse some weight loss in the past 2 months. Reports brushing his teeth twice a day with flossing - eats healthy meals. 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 [facility] Medical History (Updated 03/08/25 @ 15:57 by Starla Samuel NP) Lesion of tongue Degenerative disc disease, lumbar Delirium tremens Rhabdomyolysis Elevated lactic acid level Metabolic acidosis Alcohol intoxication Uncontrolled hypertension Hypertensive crisis Gastritis Fear of flying Palpitation HTN (hypertension) Anxiety Surgical History Pyogenic granuloma Family History Father Afib CHF (congestive heart failure) CVD (cardiovascular disease) Mother Stroke Mental health disorder Brother Asthma Maternal Grandfather Mental health disorder Maternal Uncle Mental health disorder Social History Household Members: Family Housing: Unknown / Unable to assess Do you presently have visiting nurse or other home services: No Unable to assess alcohol history related to: Unknown Alcohol intake: current Alcohol intake frequency: does not drink Patient Tobacco Use Status: Never used Tobacco e-Cigarette/Vaping Use: Currently Using (sometimes ) Second Hand Smoke Exposure: No service: Yes Current occupational status: employed 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 [employer] Cognitive needs: No Hearing needs: No Vision needs: No Review of Systems Const All systems reviewed & are unremarkable except as noted in HPI and below Physical Exam Vital Signs: Last Vital Signs Temp 98.6 F 03/08/25 15:07 Pulse 96 03/08/25 15:07 BP 135/100 H 03/08/25 15:07 Pulse Ox 97 03/08/25 15:07 Oxygen Delivery Method Room Air 03/08/25 15:07 BMI result Body Mass Index 24.7 Const General: no acute distress Nutritional Appearance: well nourished Orientation/consciousness: patient oriented x3 HEENT Other: Head: Yes normocephalic Ears: external ears normal General nose exam: Normal external nose present Face and sinus: Yes sinuses nontender Mouth: moist mucous membranes and tongue abnormal with white coating and with lesion noted (Raised lesion ~ 0.5 inch under tongue, fixed, hard and non TTP. SEE IMAGES ABOVE) Teeth and gingiva: dentition normal Throat: Yes uvula midline Neuro General: patient oriented x3 Psych Speech and movement: Normal speech and movement present Affect: Anxious affect present Assessment & Plan Assessment & Plan (1) Lesion of tongue: Code(s): K14.8 - Other diseases of tongue Plan: DDx's: Benign to malignant lesions vs Cyst vs Leukoplakia vs Lichen Planus vs Ulcers vs Wart Discussed case with PCP Will place referral to [facility] (the only [facility] that will take [facility]). Orders: Referrals 2 Oral Surgery Referal K14.8 - Other diseases of tongue Coding Level of Care Code Est Pt Level 4 (94924) Diagnoses Lesion of tongue K14.8 Time Spent (min) 20
--- OUTSIDE RECORDS SUMMARY | 2025-03-08 15:07 | XMS_ITS | Clinical Summary ---
Author Organization [facility] Facility Address [address] [place] [id number] Care Team Providers Care Graduation Coach Name Role Phone Imtiaz Llanes NP Primary Care Provider [phone] Allergies Active Allergy Reactions Criticality Noted Date Comments Other 01/28/2022 Medications atorvastatin (LIPITOR) 40 MG tablet Take 40 mg by mouth 1 (one) time each day Active cloNIDine (CATAPRES) 0.2 MG tablet Take 0.2 mg by mouth in the morning and 0.2 mg in the evening. Active gabapentin (NEURONTIN) 300 MG capsule Take 300 mg by mouth in the morning and 300 mg in the evening and 300 mg before bedtime. Active lisinopril 10 MG tablet Take 10 mg by mouth 1 (one) time each day Active LORazepam (ATIVAN) 1 MG tablet Take 1 mg by mouth every 6 (six) hours if needed for anxiety Active verapamil (CALAN) 120 MG tablet Take 120 mg by mouth in the morning and 120 mg in the evening and 120 mg before bedtime. Active Active Problems Problem Noted Date Diagnosed Date Hypertension 07/20/2018 Anxiety 07/20/2018 Family History Medical History Relation Comments Atrial fibrillation Father Congenital heart disease Father Heart disease Father Mental illness Maternal Grandmother Mental illness Mother Stroke Mother Relation Status Comments Father Maternal Grandmother Mother Social History Tobacco Use Types Packs/Day Years Used Date Smoking Tobacco: Never Smokeless Tobacco: Never Alcohol Use Standard Drinks/Week Comments Not Currently 0 (1 standard drink = 0.6 oz pur e alcohol) Sex and Gender Information Value Date Recorded Sex Assigned at Not on file Legal Sex Male 11:04 AM EDT Gender Identity Not on file Sexual Orientation Not on file Plan of Treatment Health Maintenance Due Date Last Done Comments Hepatitis B Vaccine (1 of 3 - 19+ 3-dose series) 2004 Influenza Vaccine (#1) 2025 Pneumococcal Vaccine: Peds ( 0 to 5 Years) and At-Risk Patients (6 to 49 Years) Aged Out No longer eligible b ased on patient's age to complete this topic [place] [address] Medicaid Care Teams Graduation Coach Relationship Specialty Start Date End Date Imtiaz Llanes NP 1961 [place], [place] PCP - General Nurse Practitioner 12/23/21
--- OUTSIDE RECORDS SUMMARY | 2025-03-08 15:07 | XMS_ITS | Clinical Summary ---
Author Organization [facility] ity Address [address] [place] [address] Care Team Providers Care Private Eye Name Role Phone Rudolph Berry MD Primary Care Provider Unava ilable Medical History Medical History Date Comments Unspecified asthma(493.90) DX:Un specified asthma(493.90); COMMENT: no on meds resolved childhood Allergy to other foods DX:Allerg y to other foods Family History Medical History Relation Name Comments Diabetes Paternal Grandmother Relation Name Status Comments Paternal Grandmother Social History Tobacco Use Types Packs/Day Years Used Date Smoking Tobacco: Never Smokeless Tobacco: Never Alcohol Use Standard Drinks/Week Comments Yes 0 (1 standard drink = 0.6 oz pur e alcohol) Sex and Gender Information Value Date Recorded Sex Assigned at Not on file Legal Sex Male 7:38 AM EST Gender Identity Not on file Sexual Orientation Not on file Obstetrics History Plan of Treatment Health Maintenance Due Date Last Done Comments DTaP,Tdap,and Td Vaccines (8 - Td or Tdap) 03/22/2016 03/22/2006, 12/06/1997, 03/29/1991, Additional history exists COVID-19 Vaccine ( season) 2024 Influenza Vaccine (#1) 2025 HIB Vaccines Completed 11/27/1987 IPV Vaccines Completed 03/29/1991, 10/30, 05/17/1987, Additional history exists MMR Vaccines Completed 12/23/1995, 02/15/1987 Hepatitis B Vaccines Completed 06/14/1998, 01/15/1998, 12/06/1997 Meningococcal ACWY Vaccine Aged Out 03/22/2006 N o longer eligible based on patient's age to complete this topic HPV Vaccines Aged Out No longer eligi ble based on patient's age to complete this topic Hepatitis A Vaccines Aged Out No long er eligible based on patient's age to complete this topic Meningococcal B Vaccine Aged Out No l onger eligible based on patient's age to complete this topic Pneumococcal Vaccine: Pediatrics (0 to 5 Years) and At-Risk Patients (6 to 49 Years) Aged Out No longer eligible based on patient's age to complete this topic RSV Immunization Patients Under 20 months Aged Out No longer eligible based on patient's age to complete this topic Varicella Vaccines Aged Out No longer eligible based on patient's age to complete this topic Care Teams Private Eye Relationship Specialty Start Date End Date Rudolph Berry MD PCP - General Internal Medicine 08/19/12
== END 2025-03-08 15:57 | disposition home or self-care (01) ==
PROVIDERS: PCP Nurse Practitioner Family; Visit Provider Nurse Practitioner Family
DX: K14.8 Other diseases of tongue (principal)

== ENCOUNTER → 2025-03-08 15:06 | Outpatient (BNVA) | payer OTHER, SELFPAY | PROVIDERS: PCP Nurse Practitioner Family; Visit Provider Nurse Practitioner Family | DX: K14.8 Other diseases of tongue (principal) | CPT/HCPCS: 99212 ==

== ENCOUNTER 2025-05-10 13:06 | Outpatient (AMB) | payer OTHER, SELFPAY ==
--- NOTE | 2025-05-10 13:09 | A.OFFPC_ITS ---
Vital Signs 05/10/25 13:10 05/10/25 14:15 Height 6 ft 3 in Weight 198 lb BMI 24.7 BP 150/98 H 138/92 H Blood Pressure Location Lt brachial Lt brachial Position Sitting Sitting Respiration 16 Pulse 64 Pulse Source Pulse Oximeter Pulse Oximetry (%) 98 Oxygen Delivery Method Room Air Intake Visit Reasons: PE Ballast Cleaning Operator Required: No Accompanied by: Self / Same As Patient Allergies tree nut Allergy (Unknown, Verified 05/10/25 13:13) Unknown Medication List - Last Reconciled 05/10/25 by KIKI Grewal atorvastatin 40 mg PO BEDTIME clonidine HCl 0.2 mg (2 x 0.1 mg) PO TID 90 days gabapentin 600 mg (2 x 300 mg) PO TID lisinopril 40 mg (2 x 20 mg) PO DAILY 90 days lorazepam 0.5 mg PO BID PRN 30 days metoprolol succinate ER 25 mg PO DAILY valacyclovir 2,000 mg (2 x 1 gram) PO BID 1 day verapamil ER 240 mg PO DAILY 90 days Tobacco use date assessed: 05/03/24 Dental Screening Dental Screen Date: 05/03/24 HPI PE HPI Details Here for a PE. left tongue lesion recently biopsied. awaiting results. HTN: pt has been off some his meds, recently restarted, except gabapentin and lorazepam (recent script issue, cannot fill scripts currently). I think this has something to do with his current BP. Pt is anxious today [facility] Medical History Lesion of tongue Degenerative disc disease, lumbar Delirium tremens Rhabdomyolysis Elevated lactic acid level Metabolic acidosis Alcohol intoxication Uncontrolled hypertension Hypertensive crisis Gastritis Fear of flying Palpitation HTN (hypertension) Anxiety Surgical History Pyogenic granuloma Family History Father Afib CHF (congestive heart failure) CVD (cardiovascular disease) Mother Stroke Mental health disorder Brother Asthma Maternal Grandfather Mental health disorder Maternal Uncle Mental health disorder Social History Household Members: Family Housing: Unknown / Unable to assess Do you presently have visiting nurse or other home services: No Unable to assess alcohol history related to: Unknown Alcohol intake: current Alcohol intake frequency: does not drink Patient Tobacco Use Status: Never used Tobacco e-Cigarette/Vaping Use: Currently Using (sometimes ) Second Hand Smoke Exposure: No service: Yes Current occupational status: employed 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 1. Little interest or pleasure in doing things: several days 2. Feeling down, depressed, or hopeless: several days 3. Trouble falling or staying asleep, or sleeping too much: more than half the days 4. Feeling tired or having little energy: several days 5. Poor appetite or overeating: not at all 6. Feeling bad about yourself - or that you are a failure or have let yourself or your family down: nearly every day 7. Trouble concentrating on things, such as reading the newspaper or watching television: more than half the days 8. Moving or speaking so slowly that other people could have noticed. Or the opposite - being so fidgety or restless that you have been moving around a lot more than usual: not at all 9. Thoughts that you would be better off or of hurting yourself in some way: not at all Total score: 10 Depression Screening Interpretation: Positive Depression Screening Done: Yes 81602 - PHQ-9 Billing: Yes Source: Developed by Drs. Elías Camargo, Nadege Tovar, Norris Monson and colleagues, with an educational mary from [employer]. Thrive Questionnaire Date Thrive assessed: 05/03/24 I am a: Patient What is your living situation today?: I have a steady place to live Within the past 12 months, did the food you bought not last and you didn't have the money to get more?: Never true Within the past 12 months, did you worry whether your food would run out before you got money to buy more?: Never true Do you have trouble paying for medicines?: No Do you have trouble getting transportation to medical appointments?: No Do you have trouble paying your heating and electricity bill?: No Do you have trouble taking care of your child, family member or friend?: No Do you have trouble with day-to-day activities such as bathing, preparing meals, shopping, managing finances, etc.?: No Are you currently unemployed and looking for a job?: No Are you interested in more education?: Yes Please select the resources that you would like help with: None Currently or been in a relationship where the following occur: No concerns reported THRIVE Score: 0 AUDIT C Alcohol Use Questionnaire (AUDIT-C) 1. How often do you have a drink containing alcohol?: Monthly or less 2. How many drinks containing alcohol do you have on a typical day when you are drinking?: 7 to 9 3. How often do you have six or more drinks on one occasion?: Monthly Total Score: 6 NEMESIO-7 AMB Questionnaire NEMESIO-7 Date NEMESIO - 7 assessed: 05/10/25 Feeling nervous, anxious, or on edge: 2 = More than half the days Not being able to stop or control worryin = More than half the days Worrying too much about different things: 2 = More than half the days Trouble relaxin = More than half the days Being so restless that it is hard to sit still: 2 = More than half the days Becoming easily annoyed or irritable: 2 = More than half the days Feeling afraid as if something awful might happen: 2 = More than half the days Total NEMESIO-7 score (0-4 normal; 5-9 mild; 10-14 moderate; 15-21 severe): 14 Source: Developed by Drs. Elías Camargo, Nadege Tovar, Norris Monson and colleagues, with an educational mary from [employer]. NEMESIO-7 Assessment Billing NEMESIO-7 Assessment Tool: NEMESIO-7 Assessment 59325 (denies any si or hi) Review of Systems Card Denies chest pain at rest and Denies dyspnea Resp Denies cough, Denies hemoptysis and Denies dyspnea GI Denies abdominal pain and Denies hematochezia Neuro Denies radicular pain Psych Denies mood swings Endo Denies cold intolerance Physical exam (Primary Care) Vital Signs: Last Vital Signs Pulse 64 05/10/25 13:10 Resp 16 05/10/25 13:10 BP 150/98 H 05/10/25 13:10 Pulse Ox 98 05/10/25 13:10 Oxygen Delivery Method Room Air 05/10/25 13:10 BMI result Body Mass Index 24.7 Tobacco/Smoking Status: Tobacco use Status Tobacco use date assessed 05/03/24 05/10/25 13:16 Patient Tobacco Use Status Never used Tobacco 05/10/25 13:16 e-Cigarette/Vaping Use Currently Using (sometimes ) 05/10/25 13:16 PHQ-9: PHQ-9 Score PHQ-9: Total score 10 05/10/25 14:10 Depression Screening Interpretation: Positive Thrive Assessment: Date of Thrive Assessment Date Thrive assessed 05/03/24 05/10/25 13:16 Currently or been in a relationship where the following occur: No concerns reported Coding Level of Care Code Est Pt Prev Care 18-39y(89478) Diagnoses Anxiety disorder F41.9 Encounter for routine adult physical exam with abnormal findings Z00. Additional Codes PHQ-9 - 59717 - PHQ-9 Billing: Yes ([id number]) NEMESIO-7 Assessment Billing - NEMESIO-7 Assessment Tool: NEMESIO-7 Assessment 69720 ([id number]) Assessment & Plan Assessment & Plan (1) Anxiety disorder: Code(s): F41.9 - Anxiety disorder, unspecified Category: Medical (2) Encounter for routine adult physical exam with abnormal findings: Code(s): Z00. - Encounter for general adult medical examination with abnormal findings Category: Medical Plan . Orders: Orders Comprehensive Bryan. Panel Fast Today Z00. - Encounter for general adult medical examination with abnormal findings UA CC w/rflx Micro + Cult Today Z00. - Encounter for general adult medical examination with abnormal findings Lipid Panel Today Z00. - Encounter for general adult medical examination with abnormal findings Complete Blood Count Auto Diff Today Z00. - Encounter for general adult medical examination with abnormal findings TSH reflex Free T4 Today Z00. - Encounter for general adult medical examination with abnormal findings
[2025-05-10 13:10] VITALS: BP 150/98; PULSE 64; RESP 16; O2SAT 98; BMI 24.7
[2025-05-10 14:15] VITALS: BP 138/92
--- OUTSIDE RECORDS SUMMARY | 2025-05-10 17:08 | XMS_ITS | Encounter Summary ---
Author Organization [facility] Address [address] [place] [phone] Phone Care Team Providers Care Plastic Outfitter Name Role Phone Pcp, Not Required Primary Care Provider Carley Manning MD Primary Care Provider Encounter Details Date Type Department Care Team (Late st Contact Info) Description 06/07/2018 [facility] [address] [place] [address] Demi Forrester MD, PhD [address] [place] [address] [email or web address] Social History Tobacco Use Types Packs/Day Years Used Date Smoking Tobacco: Some Days Smokeless Tobacco: Never Alcohol Use Standard Drinks/Week Comments Yes 10 (1 standard drink = 0.6 oz pu re alcohol) Sex and Gender Information Value Date Recorded Sex Assigned at Male 12/21/2023 3:33 PM EDT Legal Sex Male 12:38 PM EDT Gender Identity Male 12/21/2023 3:33 PM EDT Sexual Orientation Straight 12/21/2023 3: 33 PM EDT documented as of this encounter Plan of Treatment Not on file documented as of this encounter Visit Diagnoses Not on filedocumented in this encounter Care Teams Plastic Outfitter Relationship Specialty Start Date End Date Pcp, Not Required [address] [place] [address] PCP - General 06/07/18 11/23/18 Carley Milligan MD [address] [place] [address] PCP - General Internal Medicine 11/24/18 documented as of this encounter Additional Source Comments The information contained in this document represents components of the legal health record. It is not the complete legal health record.[facility]
--- OUTSIDE RECORDS SUMMARY | 2025-05-10 17:08 | XMS_ITS | Clinical Summary ---
Author Organization [facility] Address [address] [place] [id number] Care Team Providers Care Power Wheelchair Mechanic Name Role Phone Imtiaz Llanes NP Primary Care Provider [phone] Allergies Active Allergy Reactions Criticality Noted Date [...] patient's age to complete this topic [place] [address] Medicaid Care Teams Power Wheelchair Mechanic Relationship Specialty Start Date End Date Imtiaz Llanes NP [facility] [place] [address] PCP - General Nurse Practitioner 12/23/21
--- OUTSIDE RECORDS SUMMARY | 2025-05-10 17:08 | XMS_ITS | Encounter Summary ---
Author Organization [facility] Address [address] [place] [address] Phone Care Team Providers Care Range Mounter Name Role Phone Pcp, Not Required Primary Care Provider Carley Manning MD Primary Care Provider Encounter Details Date Type Department Care Team (Late st Contact Info) Description 06/07/2018 Procedure Pass [facility] [place] PERIOP DEPT [address] [place] [phone] Social History Tobacco Use Types Packs/Day Years [...] on filedocumented in this encounter Care Teams Range Mounter Relationship Specialty Start Date End Date Pcp, Not Required [address] [place] [address] PCP - General 06/07/18 11/23/18 Carley Milligan MD [address] [facility] [address] [place] [address] PCP - General Internal Medicine 11/24/18 documented as of this encounter Additional Source Comments The information contained in this document represents components of the legal health record. It is not the complete legal health record.[facility]
--- OUTSIDE RECORDS SUMMARY | 2025-05-10 17:08 | XMS_ITS | Encounter Summary ---
Author Organization [facility] Address [address] [place] [phone] Phone Care Team Providers Care Traffic Observer Name Role Phone Pcp, Not Required Primary Care Provider Carley Manning MD Primary Care Provider Encounter Details Date Type Department Care Team (Late st Contact Info) Description 07/20/2018 Procedure Pass [facility] [place] PERIOP DEPT [address] [place] [address] Social History Tobacco Use Types Packs/Day Years Used Date Smoking Tobacco: Some Days Cigarettes Smokeless Tobacco: Never Alcohol Use Standard Drinks/Week Comments Yes 6 (1 standard drink = 0.6 oz pur [...] on filedocumented in this encounter Care Teams Traffic Observer Relationship Specialty Start Date End Date Pcp, Not Required [address] [place] [address] PCP - General 06/07/18 11/23/18 Carley Milligan MD [address] [facility] [place] [address] PCP - General Internal Medicine 11/24/18 documented as of this encounter Additional Source Comments The information contained in this document represents components of the legal health record. It is not the complete legal health record.[facility]
--- OUTSIDE RECORDS SUMMARY | 2025-05-10 17:08 | XMS_ITS | Encounter Summary ---
Author Organization [facility] Address [address] [place] [address] Phone Care Team Providers Care Tape Keller Operator Name Role Phone Pcp, Not Required Primary Care Provider Carley Manning MD Primary Care Provider Encounter Details Date Type Department Care Team (Late st Contact Info) Description 06/07/2018 Procedure Pass [facility] [address] [place] [address] Social History Tobacco Use Types Packs/Day Years [...] on filedocumented in this encounter Care Teams Tape Keller Operator Relationship Specialty Start Date End Date Pcp, Not Required [address] [place] [address] PCP - General 06/07/18 11/23/18 Carley Milligan MD [address] [facility] [address] [place] [address] PCP - General Internal Medicine 11/24/18 documented as of this encounter Additional Source Comments The information contained in this document represents components of the legal health record. It is not the complete legal health record.[facility]
--- OUTSIDE RECORDS SUMMARY | 2025-05-10 17:08 | XMS_ITS | Encounter Summary ---
Author Organization [facility] Address [address] [place] [phone] Phone Care Team Providers Care Rehabilitation Caseworker Name Role Phone Pcp, Not Required Primary Care Provider Carley Manning MD Primary Care Provider Encounter Details Date Type Department Care Team (Late st Contact Info) Description 07/19/2018 Prep for Surgery OPHTHALMOLOGY GROUND FLOOR [address] [place] [address] Demi Forrester MD, PhD [address] [place] [address] [email or web address] Social History Tobacco Use Types Packs/Day Years [...] on filedocumented in this encounter Care Teams Rehabilitation Caseworker Relationship Specialty Start Date End Date Pcp, Not Required [address] [place] [address] PCP - General 06/07/18 11/23/18 Carley Milligan MD [address] [place] [address] PCP - General Internal Medicine 11/24/18 documented as of this encounter Additional Source Comments The information contained in this document represents components of the legal health record. It is not the complete legal health record.[facility]
--- OUTSIDE RECORDS SUMMARY | 2025-05-10 17:08 | XMS_ITS | Encounter Summary ---
Author Organization [facility] Address [address] [place] [address] Phone Care Team Providers Care Elementary [employer] Social Worker Name Role Phone Pcp, Not Required Primary Care Provider Carley Manning MD Primary Care Provider Encounter Details Date Type Department Care Team (Late st Contact Info) Description 07/19/2018 Prep for Surgery [facility] Tra[facility] [address] [place] [address] Demi Forrester MD, PhD [address] [place] [address] [email or web address] Social History Tobacco Use Types Packs/Day Years [...] PM EDT documented as of this encounter H&P Notes * Demi Forrester MD, PhD - 07/19/2018 9:26 AM EST Note to OR staff: this patient will not have an IOL order until he arrives because he needs measurements before his surgery. Demi Forrester MD, PhD documented in this encounter Plan of Treatment Not on file documented as of this encounter Visit Diagnoses Not on filedocumented in this encounter Care Teams Elementary [employer] Social Worker Relationship Specialty Start Date End Date Pcp, Not Required [address] [place] [address] PCP - General 06/07/18 11/23/18 Carley Milligan MD [address] [place] [address] [place] [address] PCP - General Internal Medicine 11/24/18 documented as of this encounter Additional Source Comments The information contained in this document represents components of the legal health record. It is not the complete legal health record.[facility]
--- OUTSIDE RECORDS SUMMARY | 2025-05-10 17:09 | XMS_ITS | Clinical Summary ---
Author Organization [facility] Address [address] [place] [phone] Phone Care Team Providers Care Geothermal Operating Engineer Name Role Phone Carley Milligan MD Primary Care Provider Allergies Active Allergy Reactions Criticality Noted Date Comments Tree Nuts Anaphylaxis High 06/07/2018 Medications * This document contains information received from the source organization and may not represent a complete record from that organization. cloNIDine HCl (CATAPRES) 0.3 MG tablet Take 0.6 mg by mouth 3 (three) times a day. Active busPIRone (BUSPAR) 10 MG tablet Take 10 mg by mouth 3 (three) times a day. Active prednisoLONE acetate (PRED FORTE) 1 % ophthalmic suspension Place 1 drop into the left eye 4 (four) times a day. 10 mL 8 Active Additional Information Patient not taking.Reported on 04/18/2020 moxifloxacin (VIGAMOX) 0.5 % ophthalmic solution Place 1 drop into the left eye 4 (four) times a day. 6 mL 1 8 Active Additional Information Patient not taking.Reported on 04/18/2020 prednisoLONE acetate (PRED FORTE) 1 % ophthalmic suspension Place 1 drop into the left eye 4 (four) times a day. 10 mL 1 8 Active Additional Information Patient not taking.Reported on 04/18/2020 Active Problems Problem Noted Date Diagnosed Date Hypertension 07/20/2018 Anxiety 07/20/2018 Eye trauma 06/07/2018 Immunizations Immunization Administration Dates Next Due Td (adult) 5 Lf Tetanus Toxoid, PF, Adsorbed 04/2018 Social History Tobacco Use Types Packs/Day Years Used Date Smoking Tobacco: Every Day Smokeless Tobacco: Never Comments:vape sometimes Alcohol Use Standard Drinks/Week Comments Yes 6 (1 standard drink = 0.6 oz pur e alcohol) Education Answer Date Recorded Are you interested in more education? Not on dane e 12/25/2022 Are you concerned about learning? Not on file 12/25/2022 No 12/25/2022 No 12/25/2022 Digital Access Answer Date Recorded No 01/23/2023 No 01/23/2023 No 01/23/2023 Reliable internet access at home? Not on file 01/23/2023 Device with a working camera? Not on file Sex and Gender Information Value Date Recorded Sex Assigned at Male 12/21/2023 3:33 PM EDT Legal Sex Male 12:38 PM EDT Gender Identity Male 12/21/2023 3:33 PM EDT Sexual Orientation Straight 12/21/2023 3: 33 PM EDT Last Filed Vital Signs Vital Sign Reading Time Taken Comments Blood Pressure 135/95 04/18/2020 12:26 PM EDT Pulse 91 04/18/2020 12:26 PM EDT Temperature 37.2 C (98.9 F) 07/20/2018 2:13 PM EST Respiratory Rate 16 04/18/2020 12:26 PM EDT Oxygen Saturation 99% 04/18/2020 12:26 PM EDT Inhaled Oxygen Concentration - - Weight 98.7 kg (217 lb 8 oz) 04/18/2020 12:26 PM EDT Height 182.9 cm (6') 04/18/2020 12:26 PM EDT Body Mass Index 29.5 04/18/2020 12:26 PM EDT Plan of Treatment Health Maintenance Due Date Last Done Comments BLOOD PRESSURE 1985 LIPID PANEL 1985 DEPRESSION SCREENING 1997 SMOKING Hx and SMOKELESS TOBACCO SCREENING 1998 HEPATITIS C SCREENING 11/14/2003 HIV ONE-TIME SCREENING (18-6 5 YEARS) 11/14/2003 PNEUMOCOCCAL VACCINES (0-49 years) (1 of 2 - PCV) 2004 INFLUENZA VACCINE (#1) 2025 10/07/2017 COVID-19 VACCINE ( - 2024-2 6 season) 2025 11/05/2020, 10/14/2020 Adult Td,Tdap Booster 06/07/2028 06/07/2018 , 03/22/2006, 12/06/1997 HIB VACCINES Completed 11/27/1987 MENINGOCOCCAL VACCINES (ACWY) Aged Out 03/22/2006 No longer eligible based on patient's age to complete this topic HEPATITIS A VACCINES Aged Out No long er eligible based on patient's age to complete this topic MENINGOCOCCAL VACCINES (B) Aged Out N o longer eligible based on patient's age to complete this topic Medical Devices Implanted Type Area Sizing Machine Tender Device Identifier Shelf Expiration Date Model / Serial / Lot Iol Acrysof Acrylic [id number] 16.5d - [id number] Implanted:Qty: 1 on 07/20/2018 by Demi Forrester MD, PhD at [facility] Left: Eye JULY 11/27/2021 / [id number] / [place] [address] [place] [address] [place] [address] [place] [address] [place] [address] [place] [address] [place] [address] [place] [address] [place] [place] [address] [place] [address] A[place] [facility] [place] [address] Advance Directives For more information, please contact: [phone] (9AM - 5PM [facility], Wednesday-Wednesday) Documents on File Type Date Recorded Patient Dental Front Office Assistant Expl anation Healthcare Proxy 06/15/2018 12:30 PM * Full Code (Presumed) (Latest Code Status on File) Date Activated Date Inactivated Comments 07/20/2018 12:32 PM 07/20/2018 4:53 PM * Full Code (Presumed) Date Activated Date Inactivated Comments 06/07/2018 10:35 PM 06/09/2018 5:33 PM Care Teams Geothermal Operating Engineer Relationship Specialty Start Date End Date Carley Milligan MD [address] [facility] [address] [place] [address] PCP - General Internal Medicine 11/24/18 Additional Source Comments The information contained in this document represents components of the legal health record. It is not the complete legal health record.[facility]
== END 2025-05-10 16:14 | disposition home or self-care (01) ==
LOC: HO.HMCC 13:06
PROVIDERS: PCP Nurse Practitioner Family; Visit Provider Nurse Practitioner Family
DX: F41.9 Anxiety disorder, unspecified (principal); Z00.01 Encounter for general adult medical examination with abnormal findings

== ENCOUNTER → 2025-05-10 13:06 | Outpatient (BNVA) | payer OTHER, SELFPAY | PROVIDERS: PCP Nurse Practitioner Family; Visit Provider Nurse Practitioner Family | DX: Z00.01 Encounter for general adult medical examination with abnormal findings (principal); F41.9 Anxiety disorder, unspecified; I10 Essential (primary) hypertension; Z13.31 Encounter for screening for depression; Z13.39 Encounter for screening examination for other mental health and behavioral disorders | CPT/HCPCS: 96127; 99395 ==